=== PATIENT | male | born 1960 | race Caucasian/White ===

== ENCOUNTER 2018-03-21 09:26 | Inpatient (IN) | payer MEDICARE, OTHER ==
[2018-03-21] MEDS ORDERED: Morphine VIAL* 4 MG/ML VIAL (1 ml vial) IV PRN (13:23)
[2018-03-21] MEDS ORDERED: oxyCODONE TAB* 5 MG TAB PO PRN (13:55)
[2018-03-21] MEDS: ETOPOSIDE IVPB SCH (15:01)
[2018-03-21] MEDS: NS 0.9% IVPB SCH (15:01)
[2018-03-21] MEDS: VINCRISTINE IVPB SCH (15:01)
[2018-03-21] MEDS: DOXORUBICIN IVPB SCH (15:01)
[2018-03-21] MEDS: predniSONE TAB* 50 MG PO SCH (15:40)
[2018-03-21] MEDS: Heparin VIAL(*) 5000 UNITS/ML VIAL (FIVE THOUSAND) SUBCUT SCH ×2 (15:41→20:34)
[2018-03-21] MEDS: Lactulose* 15 ML UDC PO SCH ×2 (15:43→20:36)
[2018-03-21] MEDS ORDERED: Temazepam CAP* 15 MG PO PRN (15:47)
[2018-03-21] MEDS: Acyclovir* 400 MG TAB PO SCH (20:34)
[2018-03-21] MEDS: oxyCODONE TAB* 5 MG TAB PO PRN (21:10)
[2018-03-22] MEDS: Heparin VIAL(*) 5000 UNITS/ML VIAL (FIVE THOUSAND) SUBCUT SCH (05:15)
[2018-03-22 05:46] LABS: Hematocrit 31 % (42-52); Hemoglobin 11.1 g/dl (14.0-18.0); Mean Corpuscular HGB Conc 36 g/dl (31-36); Mean Corpuscular Hemoglobin 33 pg (27-31); Mean Corpuscular Volume 93 fL (80-94); Red Blood Count 3.36 10^6/ul (4.0-5.4); Red Cell Distribution Width 13 % (10.5-15)
[2018-03-22 06:02] LABS: EGFR Non-African American 52.6 (>60)
[2018-03-22 06:04] LABS: ABS Basophils 0 10^3/ul (0-0.2); ABS Eosinophils 0 10^3/ul (0-0.6); ABS Lymphocytes 0.1 10^3/ul (1.0-4.8); ABS Monocytes 0.1 10^3/ul (0-0.8); ABS Neutrophils 3.8 10^3/ul (1.5-7.7); ABS Nucleated RBC 0 10^3/ul; Eosinophil % 0 % (0-6); Lymphocyte % 2.2 % (25-47); Mean Platelet Volume 7.2 um3 (7.4-10.4); Nucleated Red Blood Cells % 0.1; Platelet Count 45 10^3/ul (150-450)
[2018-03-22] MEDS ORDERED: Calcium Carbonate CHEW TAB* 500 MG (TUMS) PO PRN (08:56)
--- NOTE | 2018-03-22 09:07 | PN ---
Progress Note - Progress Note Date of Service: 03/22/18 SOAP: Subjective: []C1D2 R-EPOCH Dal[place] poorly yesterday during and after Rituximab infusion with abd. discomfort, bloating, and pain. This AM a lot better. Has a better appetite than he expected. Less bloated. No BM yet but tolerated lactulose well. Received call from [facility] that neupogen was declined. Really wants to be able to exercise and has requested a stationary bike. Denies reflux/acid burning symptoms No mouth sores No neuropathy No GORDON, though noted slightly blurred vision this AM that has improved without intervention Slept OK Medications: Acyclovir (Zovirax Tab*) 400 mg PO BID [facility] Last Admin: 03/21/18 20:34 Dose: 400 mg Allopurinol (Zyloprim Tab*) 300 mg PO DAILY [facility] Calcium Carbonate (Tums*) 500 mg PO Q4H PRN PRN Reason: reflux Heparin Sodium (Porcine) (Heparin Flush Port (Ivad)) 5 ml FLUSH DAILY [facility] PRN Reason: Protocol Etoposide 92 mg/ Doxorubicin HCl 18 mg/ Vincristine Sulfate 0.73 mg/ Sodium Chloride 514.33 mls @ 21.43 mls/hr IVPB Q24H [facility] Stop: 03/25/18 14:29 Last Admin: 03/21/18 15:01 Dose: 21.43 mls/hr Cyclophosphamide 1,000 mg/Cyclophosphamide 373 mg/Sodium Chloride 568.65 mls @ 758.2 mls/hr IVPB ONCE ONE Stop: 03/25/18 15:44 Lactulose (Lactulose*) 15 ml PO QID [facility] Last Admin: 03/21/18 20:36 Dose: 15 ml Morphine Sulfate (Morphine Vial*) 4 mg IV Q4H PRN PRN Reason: PAIN Oxycodone HCl (Roxycodone Tab*) 10 mg PO Q6H PRN PRN Reason: PAIN Last Admin: 03/21/18 21:10 Dose: 10 mg Prednisone (Deltasone Tab*) 100 mg PO DAILY [facility] Stop: 03/25/18 09:01 Last Admin: 03/21/18 15:40 Dose: 100 mg Temazepam (Restoril Cap*) 15 mg PO BEDTIME PRN PRN Reason: INSOMNIA Trimethoprim/Sulfamethoxazole (Bactrim Ds 800/160 Tab*) 1 tab PO MoWeFr@0900 [facility] Objective: [] Vital Signs Temp Pulse Resp BP Pulse Ox 97.5 F 59 16 100/56 98 03/22/18 03:22 03/22/18 03:22 03/22/18 03:22 03/22/18 03:22 03/22/18 03:22 A&Ox3, EOMI, PARADA HRR, S1S2, no murmur noted LS clear bilat., resp even and non-labored +BS, abd. soft and slightly distended with mass still felt @ medial aspect, mildly tender though no deep palpation as pt. had just ate No peripheral edema noted Port RCW benign, chemo infusing without obvious complication Laboratory Results - last 24 hr 03/22/18 03/22/18 05:13 05:13 WBC 4.0 RBC 3.36 L Hgb 11.1 L Hct 31 L MCV 93 MCH 33 H MCHC 36 RDW 13 Plt Count 45 L MPV 7.2 L Neut % (Auto) 94.7 H Lymph % (Auto) 2.2 L [place] % (Auto) 3.0 Eos % (Auto) 0 Baso % (Auto) 0.1 Absolute Neuts (auto) 3.8 Absolute Lymphs (auto) 0.1 L Absolute Monos (auto) 0.1 Absolute Eos (auto) 0 Absolute Basos (auto) 0 Absolute Nucleated RBC 0 Nucleated RBC % 0.1 Large Platelets Present Sodium 139 Potassium 4.8 Chloride 109 Carbon Dioxide 24 Anion Gap 6 BUN 23 Creatinine 1.40 H Est GFR ( Amer) 67.7 Est GFR (Non-Af Amer) 52.6 BUN/Creatinine Ratio 16.4 Glucose 123 H Calcium 9.4 Total Bilirubin 0.30 AST 12 L ALT 7 Alkaline Phosphatase 61 Total Protein 5.6 L Albumin 3.5 Globulin 2.1 Albumin/Globulin Ratio 1.7 Assessment: []57 yo male with 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 He appears to already have some improvement in symptoms with less abd. bloating following Rituximab which is very reassuring. Plan: []1. Cont. chemotherapy, no change today 2. No DVT prophylaxis with meds d/t plt. <50K, pt. to exercise per his preference as well 3. Pain well controlled with PO meds, IV if break through occurs 4. Add PO compazine for nausea, zofran can be added tomorrow (d/t aloxi with D1) . If needed can give IV ativan for break through today, but will hold off on ordering as he is feeling very well now 5. Add Tums PRN in case reflux occurs with prednisone 6. Blurred vision likely secondary to Benadryl yesterday, might have dry eyes and will follow with tx. 7. Will contact [facility] re: Humberto prior auth
[2018-03-22] MEDS: Acyclovir* 400 MG TAB PO SCH ×2 (09:14→20:13)
[2018-03-22] MEDS: Lactulose* 15 ML UDC PO SCH ×4 (09:14→20:13)
[2018-03-22] MEDS: predniSONE TAB* 50 MG PO SCH (09:14)
[2018-03-22] MEDS: Allopurinol TAB* 300 MG PO SCH (09:15)
[2018-03-22] MEDS: Sulfamethox/Trimethoprim DS 800/160* TAB PO SCH (09:15)
[2018-03-22] MEDS: NS 0.9% IVPB SCH (14:26)
[2018-03-22] MEDS: ETOPOSIDE IVPB SCH (14:26)
[2018-03-22] MEDS: DOXORUBICIN IVPB SCH (14:26)
[2018-03-22] MEDS: VINCRISTINE IVPB SCH (14:26)
[2018-03-22] MEDS: oxyCODONE TAB* 5 MG TAB PO PRN (20:15)
[2018-03-23 06:11] LABS: ABS Basophils 0 10^3/ul (0-0.2); ABS Eosinophils 0 10^3/ul (0-0.6); ABS Lymphocytes 0.2 10^3/ul (1.0-4.8); ABS Monocytes 0.5 10^3/ul (0-0.8); ABS Neutrophils 5.1 10^3/ul (1.5-7.7); ABS Nucleated RBC 0 10^3/ul; Eosinophil % 0 % (0-6); Hematocrit 32 % (42-52); Hemoglobin 11.1 g/dl (14.0-18.0); Lymphocyte % 3.4 % (25-47); Mean Corpuscular HGB Conc 35 g/dl (31-36); Mean Corpuscular Hemoglobin 33 pg (27-31); Mean Corpuscular Volume 93 fL (80-94); Mean Platelet Volume 7.5 um3 (7.4-10.4); Nucleated Red Blood Cells % 0; Platelet Count 59 10^3/ul (150-450); Red Cell Distribution Width 12 % (10.5-15); White Blood Count 5.8 10^3/ul (3.5-10.8)
[2018-03-23 06:30] LABS: EGFR Non-African American 55.8 (>60)
[2018-03-23] MEDS: Allopurinol TAB* 300 MG PO SCH (08:58)
[2018-03-23] MEDS: Acyclovir* 400 MG TAB PO SCH ×2 (08:58→21:18)
[2018-03-23] MEDS: predniSONE TAB* 50 MG PO SCH (08:58)
[2018-03-23] MEDS: Lactulose* 15 ML UDC PO SCH ×4 (08:59→21:18)
[2018-03-23] MEDS: Polyethylene Glycol 3350* 17 GM PACKET PO SCH (12:56)
[2018-03-23] MEDS: Senna TAB PO PRN (12:56)
[2018-03-23] MEDS: NS 0.9% IVPB SCH (13:56)
[2018-03-23] MEDS: VINCRISTINE IVPB SCH (13:56)
[2018-03-23] MEDS: DOXORUBICIN IVPB SCH (13:56)
[2018-03-23] MEDS: ETOPOSIDE IVPB SCH (13:56)
[2018-03-23] MEDS: oxyCODONE TAB* 5 MG TAB PO PRN (21:17)
[2018-03-24 06:30] LABS: ABS Basophils 0 10^3/ul (0-0.2); ABS Eosinophils 0 10^3/ul (0-0.6); ABS Lymphocytes 0.3 10^3/ul (1.0-4.8); ABS Monocytes 0.2 10^3/ul (0-0.8); ABS Neutrophils 4.4 10^3/ul (1.5-7.7); ABS Nucleated RBC 0 10^3/ul; Eosinophil % 0.1 % (0-6); Hematocrit 33 % (42-52); Hemoglobin 11.3 g/dl (14.0-18.0); Lymphocyte % 6.6 % (25-47); Mean Corpuscular HGB Conc 35 g/dl (31-36); Mean Corpuscular Hemoglobin 32 pg (27-31); Mean Corpuscular Volume 93 fL (80-94); Mean Platelet Volume 6.5 um3 (7.4-10.4); Nucleated Red Blood Cells % 0; Platelet Count 65 10^3/ul (150-450); Red Blood Count 3.51 10^6/ul (4.0-5.4); Red Cell Distribution Width 13 % (10.5-15)
[2018-03-24 06:46] LABS: EGFR Non-African American 63.5 (>60)
[2018-03-24] MEDS: Senna TAB PO PRN (09:02)
[2018-03-24] MEDS: Polyethylene Glycol 3350* 17 GM PACKET PO SCH ×2 (09:03→21:21)
[2018-03-24] MEDS: Lactulose* 15 ML UDC PO SCH (09:03)
[2018-03-24] MEDS: Ondansetron ODT TAB* 4 MG SL PRN ×2 (09:32→17:49)
[2018-03-24] MEDS: predniSONE TAB* 50 MG PO SCH (09:58)
[2018-03-24] MEDS: Acyclovir* 400 MG TAB PO SCH ×2 (09:59→21:26)
[2018-03-24] MEDS: Sulfamethox/Trimethoprim DS 800/160* TAB PO SCH (11:07)
[2018-03-24] MEDS: Allopurinol TAB* 300 MG PO SCH (11:07)
[2018-03-24] MEDS: DOXORUBICIN IVPB SCH (12:51)
[2018-03-24] MEDS: NS 0.9% IVPB SCH (12:51)
[2018-03-24] MEDS: ETOPOSIDE IVPB SCH (12:51)
[2018-03-24] MEDS: VINCRISTINE IVPB SCH (12:51)
[2018-03-24] MEDS: Docusate CAP* 100 MG PO PRN (12:57)
[2018-03-24] MEDS: Prochlorperazine TAB* 10 MG PO PRN (21:26)
[2018-03-24] MEDS: oxyCODONE TAB* 5 MG TAB PO PRN (21:26)
[2018-03-24] MEDS: Senna TAB PO SCH (21:27)
[2018-03-25 06:51] LABS: ABS Basophils 0 10^3/ul (0-0.2); ABS Eosinophils 0 10^3/ul (0-0.6); ABS Lymphocytes 0.4 10^3/ul (1.0-4.8); ABS Monocytes 0.1 10^3/ul (0-0.8); ABS Nucleated RBC 0 10^3/ul; Eosinophil % 0.1 % (0-6); Hematocrit 36 % (42-52); Hemoglobin 12.6 g/dl (14.0-18.0); Lymphocyte % 8.2 % (25-47); Mean Corpuscular HGB Conc 35 g/dl (31-36); Mean Corpuscular Hemoglobin 32 pg (27-31); Mean Corpuscular Volume 91 fL (80-94); Nucleated Red Blood Cells % 0; Platelet Count 64 10^3/ul (150-450); Red Blood Count 3.91 10^6/ul (4.0-5.4); Red Cell Distribution Width 12 % (10.5-15); White Blood Count 4.4 10^3/ul (3.5-10.8)
[2018-03-25 07:05] LABS: EGFR Non-African American 70.2 (>60)
[2018-03-25] MEDS: predniSONE TAB* 50 MG PO SCH (08:03)
[2018-03-25] MEDS: Allopurinol TAB* 300 MG PO SCH (08:04)
[2018-03-25] MEDS: Acyclovir* 400 MG TAB PO SCH (08:04)
[2018-03-25] MEDS: Docusate CAP* 100 MG PO PRN (08:04)
[2018-03-25] MEDS: Senna TAB PO SCH (08:05)
[2018-03-25] MEDS: Prochlorperazine TAB* 10 MG PO PRN (08:05)
[2018-03-25] MEDS: Polyethylene Glycol 3350* 17 GM PACKET PO SCH (08:07)
[2018-03-25 12:00] VITALS: BP 116/71
[2018-03-25] MEDS: Ondansetron ODT TAB* 4 MG SL PRN (12:30)
[2018-03-25] MEDS ORDERED: NS 0.9% IVPB ONE (15:00)
[2018-03-25] MEDS ORDERED: CYCLOPHOSPHAMIDE IVPB ONE (15:00)
== END 2018-03-25 14:30 | disposition home or self-care (01) | DRG 847 ==
LOC: MED 11:48
PROVIDERS: ADMIT Internal Medicine Hematology & Oncology; ATTEND Internal Medicine Hematology & Oncology
DX: Z51.11 Encounter for antineoplastic chemotherapy (principal); C83.33 Diffuse large B-cell lymphoma, intra-abdominal lymph nodes; K59.00 Constipation, unspecified; D69.59 Other secondary thrombocytopenia; R11.2 Nausea with vomiting, unspecified; H53.8 Other visual disturbances; Z92.21 Personal history of antineoplastic chemotherapy; Z91.041 Radiographic dye allergy status; Z85.71 Personal history of Hodgkin lymphoma; Z90.49 Acquired absence of other specified parts of digestive tract
CPT/HCPCS: 36415; 80053; 85025; 99223; 99232; 99238; A9270-GY; J1642; J1644; J7512; J9000; J9070; J9181; J9370; Q0164

== ENCOUNTER 2019-05-06 19:43 | Emergency (ER) | payer MEDICARE, OTHER ==
[2019-05-06 19:51] VITALS: BP 136/74
--- NOTE | 2019-05-06 20:46 | UC ---
General HPI - HPI Summary HPI Summary: 59-year-old male comes in with a chief complaint of left facial weakness and numbness. About 2 weeks ago patient noticed some tingling in the left neck and left shoulder. The week and half ago he noticed weakness and numbness of the left side of the face and also decreased taste on the left side of his tongue. Also sometime in the last week or week and a half he's noticed some numbness on the left side of his abdomen. Denies any weakness or numbness of the arms or legs. The eyelid on the left side is difficult to close. Otherwise no loss of vision or difficulty with speech. Patient has a history of Hodgkin's and non- Hodgkin's lymphoma. - History of Current Complaint Chief Complaint: UCGeneralIllness Stated Complaint: L SIDE FACIAL NUMBNESS Time Seen by Provider: 05/06/19 19:45 Pain Intensity: 0 - Allergy/Home Medications Allergies/Adverse Reactions: Allergies Allergy/AdvReac Type Severity Reaction Status Date / Time No Known Allergies Allergy Verified 05/06/19 19:51 Home Medications: Home Medications NK [No Home Medications Reported] 05/06/19 [History Confirmed 05/06/19] PMH/Surg Hx/FS Hx/Imm Hx Previously Healthy: Yes Other Cancer History: LYMPHOMA - Surgical History Surgical History: Yes Surgery Procedure, Year, and Place: PORT PLACEMENT - Family History Known Family History: Positive: Non-Contributory - Social History Alcohol Use: None Substance Use Type: None Smoking Status (MU): Never Smoked Tobacco Have You Smoked in the Last Year: No - Immunization History Most Recent Influenza Vaccination: 2016 Most Recent Pneumonia Vaccination: 2017 Review of Systems All Other Systems Reviewed And Are Negative: Yes Constitutional: Positive: Negative Skin: Positive: Other - SEE HPI Eyes: Positive: Other - SEE HPI ENT: Positive: Negative Respiratory: Positive: Negative Cardiovascular: Positive: Negative Gastrointestinal: Positive: Negative Motor: Positive: Other - SEE HPI Neurovascular: Positive: Other - SEE HPI Musculoskeletal: Positive: Other: - SEE HPI Neurological: Positive: Other - SEE HPI Psychological: Positive: Negative Is Patient Immunocompromised?: No Physical Exam Triage Information Reviewed: Yes Appearance: Well-Appearing, No Pain Distress, Well-Nourished Vital Signs: Initial Vital Signs Temp 98.1 F 05/06/19 19:44 Pulse 84 05/06/19 19:44 Resp 16 05/06/19 19:44 BP 136/74 05/06/19 19:44 Pulse Ox 100 05/06/19 19:44 Vital Signs Reviewed: Yes Eye Exam: Normal Eyes: Positive: Conjunctiva Inflamed - LEFT, Other: - PERRLA/EOMI ENT: Positive: Pharynx normal, TMs normal Neck: Positive: Supple Respiratory: Positive: Lungs clear, Normal breath sounds, No respiratory distress Cardiovascular: Positive: RRR Musculoskeletal: Positive: No Edema Neurological: Positive: Alert, Other: - Patient has left facial droop. The weakness and numbness includes the left forehead and left face. His left eyelid drifts open and is a hard time closing it. No rash. Is also an area of decreased sensation on the left side of the abdomen. No rash there either. Arms and legs have full strength. No visual field deficits no difficulty with speech. Psychological: Positive: Age Appropriate Behavior Skin: Negative: Rashes Course/Dx - Course Course Of Treatment: I discussed the case with the neurologist on-call Dr. Goss. I also discussed the case with the patient's oncologist Dr. Blanca. They both recommended inpatient admission tonight to go through the emergency department now. I discussed all this with the patient and he let me know he was not planning to go the emergency room tonight but he will be calling Dr. Blanca's office tomorrow. - Diagnoses Provider Diagnosis: Weakness on left side of face, Paresthesia Discharge - Sign-Out/Discharge Documenting (check all that apply): Patient Departure All imaging exams completed and their final reports reviewed: No Studies - Discharge Plan Condition: Stable Disposition: HOME-RECOMMEND TO ED Patient Education Materials: Haley Palsy (ED), Paresthesia (ED) Referrals: Jack Cisneros MD [Primary Care Provider] - Isis Blanca MD [Medical Doctor] - Additional Instructions: GO DIRECTLY TO THE EMERGENCY DEPARTMENT FOR FURTHER EVALUATION. - Billing Disposition and Condition Condition: STABLE Disposition: Home-Recommend to ED
== END 2019-05-06 20:54 | disposition home health service (06) ==
LOC: UCEAST 19:43
DX: R29.810 Facial weakness (principal); R20.2 Paresthesia of skin; Z85.71 Personal history of Hodgkin lymphoma; Z85.72 Personal history of non-Hodgkin lymphomas
CPT/HCPCS: 99211; G0463

== ENCOUNTER 2019-06-06 11:28 | Emergency (ER) | payer MEDICARE, OTHER ==
[2019-06-06 11:58] VITALS: BP 109/69
--- NOTE | 2019-06-06 13:28 | UC ---
Skin Complaint HPI - HPI Summary HPI Summary: NOTICED THE SMALL PURPLE AREA IN THE SECOND INTERDIGITAL WEB SPACE OF HIS LEFT HAND YESTERDAY MORNING. IT HAS GOTTEN BIGGER IN SIZE AND NOW HAS SURROUNDING ERYTHEMA EXTENDING PROXIMALLY UP TO HIS WRIST. THE AREA IS PAINFUL BUT NOT ITCHY. NO FEVER. [place] AND [place]MITS IT'S LIKELY HE WAS BITTEN BY SOMETHING. - History of Current Complaint Chief Complaint: UCSkin Time Seen by Provider: 06/06/19 13:13 Stated Complaint: RASH Hx Obtained From: Patient Onset/Duration: Gradual Onset, Lasting Hours, Still Present Timing: Constant Onset Severity: Mild Current Severity: Moderate Pain Intensity: 4 Pain Scale Used: 0-10 Numeric Location: Hand (Left) Character: Swelling, Pain, Redness Aggravating Factor(s): Touch - MOVEMENT Alleviating Factor(s): Nothing Associated Signs & Symptoms: Positive: Rash, Tenderness, Red Streaks. Negative : Nausea, Fever - Allergy/Home Medications Allergies/Adverse Reactions: Allergies Allergy/AdvReac Type Severity Reaction Status Date / Time No Known Allergies Allergy Verified 06/06/19 11:58 PMH/Surg Hx/FS Hx/Imm Hx Other Cancer History: HODGKINS AND NON HODGKINS LYMPHOMA - Surgical History Surgical History: Yes Surgery Procedure, Year, and Place: PORT PLACEMENT - Family History Known Family History: Positive: Non-Contributory - Social History Alcohol Use: None Substance Use Type: None Smoking Status (MU): Never Smoked Tobacco Have You Smoked in the Last Year: No - Immunization History Most Recent Influenza Vaccination: 2017 Most Recent Pneumonia Vaccination: 2017 Review of Systems All Other Systems Reviewed And Are Negative: Yes Constitutional: Positive: Negative Skin: Positive: Other - ERYTHEMA Respiratory: Positive: Negative Cardiovascular: Positive: Negative Gastrointestinal: Positive: Negative Musculoskeletal: Positive: Arthralgia, Edema Physical Exam Triage Information Reviewed: Yes Appearance: Well-Appearing, No Pain Distress, Well-Nourished Vital Signs: Initial Vital Signs Temp 99.2 F 06/06/19 11:55 Pulse 97 06/06/19 11:55 Resp 18 06/06/19 11:55 BP 109/69 06/06/19 11:55 Pulse Ox 99 06/06/19 11:55 Vital Signs Reviewed: Yes Eyes: Positive: Conjunctiva Clear ENT: Positive: Hearing grossly normal Neck: Positive: Supple Respiratory: Positive: No respiratory distress, No accessory muscle use Cardiovascular: Positive: Pulses Normal Abdomen Description: Positive: Soft Musculoskeletal: Positive: ROM Intact, Edema @ - LEFT 2ND AND 3RD FINGERS Neurological: Positive: Alert Psychological: Positive: Age Appropriate Behavior Skin: Positive: Other - ~2CM AREA OF DARK PURPLE DISCOLORATION 2ND INTERDIGITAL WEBSPACE LEFT HAND WITH SURROUNDING ERYTHEMA AND EDEMA EXTENDING PROXIMALLY TO WRIST, Course/Dx - Course Course Of Treatment: PATIENT LIKELY SUSTAINED AN INSECT BITE IN THE SECOND INTERDIGITAL WEBSPACE OF HIS LEFT HAND AND THEN DEVELOPED A SUBSEQUENT CELLULITIS. WILL COVER WITH KEFLEX TWICE DAILY FOR 10 DAYS. PATIENT WILL FOLLOW-UP IF HE IS NOT IMPROVING EXPECTED WITH THIS MEDICATION. - Diagnoses Provider Diagnosis: Cellulitis of left hand Discharge - Sign-Out/Discharge Documenting (check all that apply): Patient Departure All imaging exams completed and their final reports reviewed: No Studies - Discharge Plan Condition: Stable Disposition: HOME Prescriptions: Cephalexin CAP* [Keflex 500 CAP*] 1,000 mg PO BID #[id number] cap Patient Education Materials: Cellulitis (ED) Referrals: Jack Cisneros MD [Primary Care Provider] - If Needed Additional Instructions: YOU HAVE A SKIN INFECTION ON YOUR LEFT HAND LIKELY STEMMING FROM AN INSECT BITE OF SOME NATURE. TAKE THE ANTIBIOTICS TWICE DAILY FOR THE FULL 10 DAYS. IF YOU DO NOT NOTICE IMPROVEMENT AFTER 48 HOURS ON ANTIBIOTICS SEEK REEVALUATION. - Billing Disposition and Condition Condition: STABLE Disposition: Home
== END 2019-06-06 13:25 | disposition home or self-care (01) ==
LOC: UCEAST 11:28
DX: L03.114 Cellulitis of left upper limb (principal); Z85.72 Personal history of non-Hodgkin lymphomas; Z85.71 Personal history of Hodgkin lymphoma
CPT/HCPCS: 99212; G0463

== ENCOUNTER 2019-06-14 14:28 | Inpatient (IN) | payer MEDICARE, OTHER ==
[2019-06-14] MEDS ORDERED: diPHENhydraMINE PO* 50 MG PO PRN (16:07)
--- OUTSIDE RECORDS SUMMARY | 2019-06-14 16:43 | XMS REPORT | Continuity of Care Document ---
:1960 External Reference #:[id number] Author Name Rosario Gamboa Care Team Providers Name Role Phone Jcak Cisneros MD Primary Care Physician Unavailable Payers Date Identification Numbers Payment Provider Subscriber Policy Number: [id number] Medicare Eduardo Gomez PayID: [id number] [address] [place] [address] Policy Number: [id number] [employer] Eduardo Gomez PayID: [id number] [address] [place] [address] Expires: 2017 Policy Number: [facility] Eduardo Gomez [id number] PayID: [id number] [address] [place] [address] Family History Date Family Member(s) Observation Comments General adopted - unknown family history Social History Type Date Description Comments Sex Unknown ETOH Use Denies alcohol use Tobacco Use Start: Unknown Patient has never smoked Recreational Drug Use Denies Drug Use Smoking Status Reviewed: 06/11/19 Patient has never smoked Exercise Type/Frequency Does not exercise Medications Active Medications SIG Qnty Indications Ordering Provider Date Cephalexin Unknown 500mg Capsules Vital Signs Date Vital Result Comment 06/11/2019 11:25am Height 72 inches 6'0" Weight 141.00 lb Heart Rate 88 /min BP Systolic 109 mmHg BP Diastolic 71 mmHg Body Temperature 97.2 F O2 % BldC Oximetry 100 % BMI (Body Mass Index) 19.1 kg/m2 Results Test Date Facility Test Result H/L Range Note Lyme Disease AB 06/05/2019 [facility] IgG Immunoblot Negative Negative Immunoblot WB [address] [place] [address] [phone] IgG detected against p39 kDa IgM Immunoblot Negative Negative IgM detected against None kDa Lyme Disease Interpretation See Comment 1 Comp Metabolic Panel 06/05/2019 [facility] Sodium 136 mmol/L N 135-[address] [place] [address] [phone] Potassium 4.1 mmol/L N 3.5-5.0 Chloride 111 mmol/L N 101-111 Co2 Carbon Dioxide 19 mmol/L Low 22-32 Anion Gap 6 mmol/L N 2-11 Glucose 108 mg/dL High 70-100 Blood Urea Nitrogen 29 mg/dL High 6-24 Creatinine 1.36 mg/dL High 0.67-1.17 BUN/Creatinine Ratio 21.3 High 8-20 Calcium 10.2 mg/dL N 8.6-10.3 Total Protein 6.2 g/dL Low 6.4-8.9 Albumin 4.3 g/dL N 3.2-5.2 Globulin 1.9 g/dL Low 2-4 Albumin/Globulin Ratio 2.3 N 1-3 Total Bilirubin 0.80 mg/dL N 0.2-1.0 Alkaline Phosphatase 59 U/L N 34-104 Alt 14 U/L N 7-52 Ast 12 U/L Low 13-39 Egfr Non- 54.0 >60 Egfr 65.4 >60 2 Laboratory test 06/05/2019 [facility] Erythrocyte Sed 2 mm/Hr N 0-[address] [place] [address] [phone] Lyme Screen W/ Reflex To WB Negative Negative CBC Auto Diff 06/05/2019 [facility] White Blood 3.9 10^3/uL N 3.5-10.[address] [place] [address] [phone] Red Blood Count 4.05 10^6/uL Low 4.18-5.48 Hemoglobin 13.4 g/dL Low 14.0-18.0 Hematocrit 38 % Low 42-52 Mean Corpuscular Volume 94 fL N 80-94 Mean Corpuscular Hemoglobin 33 pg High 27-31 Mean Corpuscular HGB Conc 35 g/dL N 31-36 Red Cell Distribution Width 13 % N 10-15 Platelet Count 78 10^3/uL Low 150-450 3 Mean Platelet Volume 6.9 fL Low 7.4-10.4 Abs Neutrophils 3.1 10^3/uL N 1.5-7.7 Abs Lymphocytes 0.3 10^3/uL Low 1.0-4.8 Abs Monocytes 0.4 10^3/uL N 0-0.8 Abs Eosinophils 0.0 10^3/uL N 0-0.6 Abs Basophils 0.0 10^3/uL N 0-0.2 Abs Nucleated RBC 0.0 10^3/uL Granulocyte % 79.1 % Lymphocyte % 8.3 % Monocyte % 11.4 % Eosinophil % 0.9 % Basophil % 0.3 % Nucleated Red Blood Cells % 0.7 Laboratory test 06/04/2019 [facility] Point of Care 72 mg/dL N 70-100 [address] [address] [phone] Lyme Disease AB 05/22/2019 [facility] IgG Immunoblot Negative Negative Immunoblot WB [address] [place] [address] [phone] IgG detected against p39 kDa IgM Immunoblot Negative Negative IgM detected against None kDa Lyme Disease Interpretation See Comment 5 Comp Metabolic Panel 05/22/2019 [facility] Sodium 137 mmol/L N 135-[address] [place] [address] [phone] Potassium 4.2 mmol/L N 3.5-5.0 Chloride 107 mmol/L N 101-111 Co2 Carbon Dioxide 24 mmol/L N 22-32 Anion Gap 6 mmol/L N 2-11 Glucose 116 mg/dL High 70-100 Blood Urea Nitrogen 19 mg/dL N 6-24 Creatinine 1.15 mg/dL N 0.67-1.17 BUN/Creatinine Ratio 16.5 N 8-20 Calcium 10.1 mg/dL N 8.6-10.3 Total Protein 6.2 g/dL Low 6.4-8.9 Albumin 4.3 g/dL N 3.2-5.2 Globulin 1.9 g/dL Low 2-4 Albumin/Globulin Ratio 2.3 N 1-3 Total Bilirubin 0.80 mg/dL N 0.2-1.0 Alkaline Phosphatase 63 U/L N 34-104 Alt 12 U/L N 7-52 Ast 14 U/L N 13-39 Egfr Non- 65.5 >60 Egfr 79.3 >60 6 Laboratory test 05/22/2019 [facility] Erythrocyte Sed 3 mm/Hr N 0-[address] [place] [address] [phone] Lyme Screen W/ Reflex To WB Negative Negative CBC Auto 05/22/2019 [facility] White Blood 3.1 10^3/uL Low 3.5 -10.[address] [place] [address] [phone] Red Blood Count 4.10 10^6/uL Low 4.18-5.48 Hemoglobin 13.8 g/dL Low 14.0-18.0 Hematocrit 38 % Low 42-52 Mean Corpuscular Volume 93 fL N 80-94 Mean Corpuscular Hemoglobin 34 pg High 27-31 Mean Corpuscular HGB Conc 36 g/dL N 31-36 Red Cell Distribution Width 13 % N 10-15 Platelet Count 71 10^3/uL Low 150-450 7 Mean Platelet Volume 6.9 fL Low 7.4-10.4 Abs Neutrophils 2.3 10^3/uL N 1.5-7.7 Abs Lymphocytes 0.3 10^3/uL Low 1.0-4.8 Abs Monocytes 0.4 10^3/uL N 0-0.8 Abs Eosinophils 0.1 10^3/uL N 0-0.6 Abs Basophils 0.0 10^3/uL N 0-0.2 Abs Nucleated RBC 0.0 10^3/uL Granulocyte % 75.4 % Lymphocyte % 10.4 % Monocyte % 12.0 % Eosinophil % 1.8 % Basophil % 0.4 % Nucleated Red Blood Cells % 0.1 Lyme Disease AB 05/08/2019 [facility] IgG Immunoblot Negative Negative Immunoblot WB [address] [place] [address] [phone] IgG detected against p39 kDa IgM Immunoblot Negative Negative IgM detected against None kDa Lyme Disease Interpretation See Comment 8 Comp Metabolic Panel 05/08/2019 [facility] Sodium 136 mmol/L N 135-145 [address] [place] [address] [phone] Potassium 4.3 mmol/L N 3.5-5.0 Chloride 106 mmol/L N 101-111 Co2 Carbon Dioxide 25 mmol/L N 22-32 Anion Gap 5 mmol/L N 2-11 Glucose 100 mg/dL N 70-100 Blood Urea Nitrogen 20 mg/dL N 6-24 Creatinine 1.33 mg/dL High 0.67-1.17 BUN/Creatinine Ratio 15.0 N 8-20 Calcium 10.3 mg/dL N 8.6-10.3 Total Protein 6.3 g/dL Low 6.4-8.9 Albumin 4.4 g/dL N 3.2-5.2 Globulin 1.9 g/dL Low 2-4 Albumin/Globulin Ratio 2.3 N 1-3 Total Bilirubin 0.70 mg/dL N 0.2-1.0 Alkaline Phosphatase 65 U/L N 34-104 Alt 13 U/L N 7-52 Ast 15 U/L N 13-39 Egfr Non- 55.4 >60 Egfr 67.1 >60 9 Laboratory test 05/08/2019 [facility] Erythrocyte Sed 2 mm/Hr N 0-[address] [place] [address] [phone] Lyme Screen W/ Reflex To WB Negative Negative CBC Auto Diff 05/08/2019 [facility] White Blood 3.9 10^3/uL N 3.5-10.[address] [place] [address] [phone] Red Blood Count 4.31 10^6/uL N 4.18-5.48 Hemoglobin 14.2 g/dL N 14.0-18.0 Hematocrit 40 % Low 42-52 Mean Corpuscular Volume 93 fL N 80-94 Mean Corpuscular Hemoglobin 33 pg High 27-31 Mean Corpuscular HGB Conc 35 g/dL N 31-36 Red Cell Distribution Width 12 % N 10-15 Platelet Count 79 10^3/uL Low 150-450 10 Mean Platelet Volume 7.0 fL Low 7.4-10.4 Abs Neutrophils 3.0 10^3/uL N 1.5-7.7 Abs Lymphocytes 0.3 10^3/uL Low 1.0-4.8 Abs Monocytes 0.4 10^3/uL N 0-0.8 Abs Eosinophils 0.1 10^3/uL N 0-0.6 Abs Basophils 0.0 10^3/uL N 0-0.2 Abs Nucleated RBC 0.0 10^3/uL Granulocyte % 78.3 % Lymphocyte % 8.0 % Monocyte % 11.4 % Eosinophil % 1.7 % Basophil % 0.6 % Nucleated Red Blood Cells % 0.1 Laboratory test 03/07/2019 [facility] Erythrocyte Sed 3 mm/Hr N 0-[address] [place] [address] [phone] Comp Metabolic 03/07/2019 [facility] Sodium 139 mmol/L N 135- [address] [place] [address] [phone] Potassium 4.5 mmol/L N 3.5-5.0 Chloride 109 mmol/L N 101-111 Co2 Carbon Dioxide 26 mmol/L N 22-32 Anion Gap 4 mmol/L N 2-11 Glucose 92 mg/dL N 70-100 Blood Urea Nitrogen 20 mg/dL N 6-24 Creatinine 1.25 mg/dL High 0.67-1.17 BUN/Creatinine Ratio 16.0 N 8-20 Calcium 9.7 mg/dL N 8.6-10.3 Total Protein 6.1 g/dL Low 6.4-8.9 Albumin 4.2 g/dL N 3.2-5.2 Globulin 1.9 g/dL Low 2-4 Albumin/Globulin Ratio 2.2 N 1-3 Total Bilirubin 0.60 mg/dL N 0.2-1.0 Alkaline Phosphatase 64 U/L N 34-104 Alt 13 U/L N 7-52 Ast 14 U/L N 13-39 Egfr Non- 59.7 >60 Egfr 72.3 >60 11 Laboratory test 03/07/2019 [facility] LDH 108 U/L Low 140-[address] [place] [address] [phone] CBC Auto Diff 03/07/2019 [facility] White Blood 2.8 Low 3.5- 10.[address] Count 10^3/[place] [address] [phone] Red Blood Count 4.02 10^6/uL Low 4.18-5.48 Hemoglobin 13.3 g/dL Low 14.0-18.0 Hematocrit 38 % N 36-46 Mean Corpuscular Volume 95 fL High 80-94 Mean Corpuscular Hemoglobin 33 pg High 27-31 Mean Corpuscular HGB Conc 35 g/dL N 31-36 Red Cell Distribution Width 13 % N 10.5-15 Platelet Count 63 10^3/uL Low 150-450 12 Mean Platelet Volume 6.9 fL Low 7.4-10.4 Abs Neutrophils 1.9 10^3/uL N 1.5-7.7 Abs Lymphocytes 0.3 10^3/uL Low 1.0-4.8 Abs Monocytes 0.4 10^3/uL N 0-0.8 Abs Eosinophils 0.1 10^3/uL N 0-0.6 Abs Basophils 0 10^3/uL N 0-0.2 Abs Nucleated RBC 0 10^3/uL Granulocyte % 68.4 % Lymphocyte % 12.1 % Monocyte % 16.0 % Eosinophil % 3.0 % Basophil % 0.5 % Nucleated Red Blood Cells % 0 Laboratory test 01/17/2019 [facility] Erythrocyte Sed 9 mm/Hr N 0-20 [address] [place] [address] [phone] Comp Metabolic 01/17/2019 [facility] Sodium 139 mmol/L N 135- [address] [place] [address] [phone] Potassium 4.0 mmol/L N 3.5-5.0 Chloride 106 mmol/L N 101-111 Co2 Carbon Dioxide 29 mmol/L N 22-32 Anion Gap 4 mmol/L N 2-11 Glucose 104 mg/dL High 70-100 Blood Urea Nitrogen 18 mg/dL N 6-24 Creatinine 1.16 mg/dL N 0.67-1.17 BUN/Creatinine Ratio 15.5 N 8-20 Calcium 10.3 mg/dL N 8.6-10.3 Total Protein 6.4 g/dL N 6.4-8.9 Albumin 4.4 g/dL N 3.2-5.2 Globulin 2.0 g/dL N 2-4 Albumin/Globulin Ratio 2.2 N 1-3 Total Bilirubin 0.60 mg/dL N 0.2-1.0 Alkaline Phosphatase 72 U/L N 34-104 Alt 15 U/L N 7-52 Ast 16 U/L N 13-39 Egfr Non- 65.1 >60 Egfr 78.8 >60 14 Laboratory test 01/17/2019 [facility] LDH 120 U/L Low 140-[address] [place] [address] [phone] CBC Auto Diff 01/17/2019 [facility] White Blood 3.2 Low 3.5- 10.[address] Count 10^3/[place] [address] [phone] Red Blood Count 3.98 10^6/uL Low 4.00-5.40 Hemoglobin 13.0 g/dL Low 14.0-18.0 Hematocrit 37 % Low 42-52 Mean Corpuscular Volume 94 fL N 80-94 Mean Corpuscular Hemoglobin 33 pg High 27-31 Mean Corpuscular HGB Conc 35 g/dL N 31-36 Red Cell Distribution Width 14 % N 10.5-15 Platelet Count 66 10^3/uL Low 150-450 15 Mean Platelet Volume 7.2 fL Low 7.4-10.4 Abs Neutrophils 2.4 10^3/uL N 1.5-7.7 Abs Lymphocytes 0.3 10^3/uL Low 1.0-4.8 Abs Monocytes 0.4 10^3/uL N 0-0.8 Abs Eosinophils 0.1 10^3/uL N 0-0.6 Abs Basophils 0 10^3/uL N 0-0.2 Abs Nucleated RBC 0 10^3/uL Granulocyte % 75.4 % Lymphocyte % 8.3 % Monocyte % 12.2 % Eosinophil % 3.7 % Basophil % 0.4 % Nucleated Red Blood Cells % 0 CBC Auto Diff 11/29/2018 [facility] White Blood 4.3 10^3/uL N 3.5-10.[address] [place] [address] [phone] Red Blood Count 4.10 10^6/uL N 4.00-5.40 Hemoglobin 13.2 g/dL Low 14.0-18.0 Hematocrit 38 % Low 42-52 Mean Corpuscular Volume 93 fL N 80-94 Mean Corpuscular Hemoglobin 32 pg High 27-31 Mean Corpuscular HGB Conc 35 g/dL N 31-36 Red Cell Distribution Width 13 % N 10.5-15 Platelet Count 71 10^3/uL Low 150-450 16 Mean Platelet Volume 7.2 fL Low 7.4-10.4 Abs Neutrophils 3.4 10^3/uL N 1.5-7.7 Abs Lymphocytes 0.3 10^3/uL Low 1.0-4.8 Abs Monocytes 0.3 10^3/uL N 0-0.8 Abs Eosinophils 0.1 10^3/uL N 0-0.6 Abs Basophils 0 10^3/uL N 0-0.2 Abs Nucleated RBC 0 10^3/uL Granulocyte % 81.1 % Lymphocyte % 7.6 % Monocyte % 8.1 % Eosinophil % 2.8 % Basophil % 0.4 % Nucleated Red Blood Cells % 0 Comp Metabolic Panel 11/29/2018 [facility] Sodium 137 mmol/L N 135-[address] [place] [address] [phone] Potassium 4.0 mmol/L N 3.5-5.0 Chloride 106 mmol/L N 101-111 Co2 Carbon Dioxide 26 mmol/L N 22-32 Anion Gap 5 mmol/L N 2-11 Glucose 132 mg/dL High 70-100 Blood Urea Nitrogen 21 mg/dL N 6-24 Creatinine 1.15 mg/dL N 0.67-1.17 BUN/Creatinine Ratio 18.3 N 8-20 Calcium 9.3 mg/dL N 8.6-10.3 Total Protein 6.1 g/dL Low 6.4-8.9 Albumin 4.0 g/dL N 3.2-5.2 Globulin 2.1 g/dL N 2-4 Albumin/Globulin Ratio 1.9 N 1-3 Total Bilirubin 0.40 mg/dL N 0.2-1.0 Alkaline Phosphatase 74 U/L N 34-104 Alt 14 U/L N 7-52 Ast 15 U/L N 13-39 Egfr Non- 65.8 >60 Egfr 79.6 >60 17 Laboratory test 11/29/2018 [facility] LDH 112 U/L Low 140-[address] [place] [address] [phone] Laboratory test 11/29/2018 [facility] Erythrocyte Sed 10 mm/Hr N 0-[address] [place] [address] [phone] Laboratory test 10/18/2018 [facility] Erythrocyte Sed 12 mm/Hr N 0-[address] [place] [address] [phone] Comp Metabolic 10/18/2018 [facility] Sodium 140 N 135-[address] mmol/[place] [address] [phone] Potassium 4.1 mmol/L N 3.5-5.0 Chloride 107 mmol/L N 101-111 Co2 Carbon Dioxide 28 mmol/L N 22-32 Anion Gap 5 mmol/L N 2-11 Glucose 124 mg/dL High 70-100 Blood Urea Nitrogen 25 mg/dL High 6-24 Creatinine 1.31 mg/dL High 0.67-1.17 BUN/Creatinine Ratio 19.1 N 8-20 Calcium 10.2 mg/dL N 8.6-10.3 Total Protein 6.0 g/dL Low 6.4-8.9 Albumin 4.2 g/dL N 3.2-5.2 Globulin 1.8 g/dL Low 2-4 Albumin/Globulin Ratio 2.3 N 1-3 Total Bilirubin 0.40 mg/dL N 0.2-1.0 Alkaline Phosphatase 72 U/L N 34-104 Alt 15 U/L N 7-52 Ast 15 U/L N 13-39 Egfr Non- 56.6 >60 Egfr 68.5 >60 18 Laboratory test 10/18/2018 [facility] LDH 113 U/L Low 140-[address] [place] [address] [phone] CBC Auto Diff 10/18/2018 [facility] White Blood 3.7 N 3.5- 10.[address] Count 10^3/[place] [address] [phone] Red Blood Count 3.90 10^6/uL Low 4.00-5.40 Hemoglobin 12.7 g/dL Low 14.0-18.0 Hematocrit 37 % Low 42-52 Mean Corpuscular Volume 94 fL N 80-94 Mean Corpuscular Hemoglobin 33 pg High 27-31 Mean Corpuscular HGB Conc 35 g/dL N 31-36 Red Cell Distribution Width 12 % N 10.5-15 Platelet Count 67 10^3/uL Low 150-450 19 Mean Platelet Volume 7.4 fL N 7.4-10.4 Abs Neutrophils 2.7 10^3/uL N 1.5-7.7 Abs Lymphocytes 0.4 10^3/uL Low 1.0-4.8 Abs Monocytes 0.4 10^3/uL N 0-0.8 Abs Eosinophils 0.2 10^3/uL N 0-0.6 Abs Basophils 0 10^3/uL N 0-0.2 Abs Nucleated RBC 0 10^3/uL Granulocyte % 72.9 % Lymphocyte % 10.0 % Monocyte % 10.8 % Eosinophil % 5.6 % Basophil % 0.7 % Nucleated Red Blood Cells % 0 Comp Metabolic Panel 09/08/2018 [facility] Sodium 138 mmol/L N 135-[address] [place] [address] [phone] Potassium 4.4 mmol/L N 3.5-5.0 Chloride 109 mmol/L N 101-111 Co2 Carbon Dioxide 27 mmol/L N 22-32 Anion Gap 2 mmol/L N 2-11 Glucose 112 mg/dL High 70-100 Blood Urea Nitrogen 21 mg/dL N 6-24 Creatinine 1.24 mg/dL High 0.67-1.17 BUN/Creatinine Ratio 16.9 N 8-20 Calcium 9.8 mg/dL N 8.6-10.3 Total Protein 5.8 g/dL Low 6.4-8.9 Albumin 4.1 g/dL N 3.2-5.2 Globulin 1.7 g/dL Low 2-4 Albumin/Globulin Ratio 2.4 N 1-3 Total Bilirubin 0.50 mg/dL N 0.2-1.0 Alkaline Phosphatase 77 U/L N 34-104 Alt 18 U/L N 7-52 Ast 16 U/L N 13-39 Egfr Non- 60.3 >60 Egfr 73.0 >60 20 Laboratory test finding 09/08/2018 [facility] LDH 144 U/L N 140-[address] [place] [address] [phone] Erythrocyte Sed Rate 14 mm/Hr N 0-20 CBC Auto 09/08/2018 [facility] White Blood 2.7 10^3/uL Low 3.5 -10.[address] [place] [address] [phone] Red Blood Count 3.41 10^6/uL Low 4.00-5.40 Hemoglobin 11.6 g/dL Low 14.0-18.0 Hematocrit 34 % Low 42-52 Mean Corpuscular Volume 99 fL High 80-94 Mean Corpuscular Hemoglobin 34 pg High 27-31 Mean Corpuscular HGB Conc 34 g/dL N 31-36 Red Cell Distribution Width 13 % N 10.5-15 Platelet Count 68 10^3/uL Low 150-450 Mean Platelet Volume 7.5 um3 N 7.4-10.4 Abs Neutrophils 1.7 10^3/uL N 1.5-7.7 Abs Lymphocytes 0.5 10^3/uL Low 1.0-4.8 Abs Monocytes 0.4 10^3/uL N 0-0.8 Abs Eosinophils 0.2 10^3/uL N 0-0.6 Abs Basophils 0 10^3/uL N 0-0.2 Abs Nucleated RBC 0 10^3/uL Granulocyte % 61.0 % N 38-83 Lymphocyte % 18.1 % Low 25-47 Monocyte % 13.7 % High 0-7 Eosinophil % 6.4 % High 0-6 Basophil % 0.8 % N 0-2 Nucleated Red Blood Cells % 0.3 Laboratory test 07/17/2018 [facility] Point of Care 98 mg/dL N 70-100 [address] [place] [address] [phone] CBC Auto Diff 07/03/2018 [facility] White Blood 4.2 10^3/uL N 3.5-10.[address] [place] [address] [phone] Red Blood Count 2.54 10^6/uL Low 4.00-5.40 Hemoglobin 9.4 g/dL Low 14.0-18.0 Hematocrit 27 % Low 42-52 Mean Corpuscular Volume 105 fL High 80-94 Mean Corpuscular Hemoglobin 37 pg High 27-31 Mean Corpuscular HGB Conc 35 g/dL N 31-36 Red Cell Distribution Width 15 % N 10.5-15 Platelet Count 80 10^3/uL Low 150-450 22 Mean Platelet Volume 7.5 um3 N 7.4-10.4 Abs Neutrophils 3.5 10^3/uL N 1.5-7.7 Abs Lymphocytes 0.2 10^3/uL Low 1.0-4.8 Abs Monocytes 0.5 10^3/uL N 0-0.8 Abs Eosinophils 0 10^3/uL N 0-0.6 Abs Basophils 0 10^3/uL N 0-0.2 Abs Nucleated RBC 0 10^3/uL Granulocyte % 83.7 % High 38-83 Lymphocyte % 4.8 % Low 25-47 Monocyte % 10.8 % High 0-7 Eosinophil % 0.1 % N 0-6 Basophil % 0.6 % N 0-2 Nucleated Red Blood Cells % 0 Comp Metabolic Panel 07/03/2018 [facility] Sodium 140 mmol/L N 135-[address] [place] [address] [phone] Potassium 4.2 mmol/L N 3.5-5.0 Chloride 109 mmol/L N 101-111 Co2 Carbon Dioxide 30 mmol/L N 22-32 Anion Gap 1 mmol/L Low 2-11 Glucose 111 mg/dL High 70-100 Blood Urea Nitrogen 19 mg/dL N 6-24 Creatinine 1.30 mg/dL High 0.67-1.17 BUN/Creatinine Ratio 14.6 N 8-20 Calcium 9.8 mg/dL N 8.6-10.3 Total Protein 5.8 g/dL Low 6.4-8.9 Albumin 3.9 g/dL N 3.2-5.2 Globulin 1.9 g/dL Low 2-4 Albumin/Globulin Ratio 2.1 N 1-3 Total Bilirubin 0.40 mg/dL N 0.2-1.0 Alkaline Phosphatase 68 U/L N 34-104 Alt 14 U/L N 7-52 Ast 13 U/L N 13-39 Egfr Non- 57.1 >60 Egfr 69.1 >60 23 CBC Auto 06/13/2018 [facility] White Blood 3.2 10^3/uL Low 3.5 -10.[address] [place] [address] [phone] Red Blood Count 2.57 10^6/uL Low 4.00-5.40 Hemoglobin 9.2 g/dL Low 14.0-18.0 Hematocrit 27 % Low 42-52 Mean Corpuscular Volume 103 fL High 80-94 Mean Corpuscular Hemoglobin 36 pg High 27-31 Mean Corpuscular HGB Conc 35 g/dL N 31-36 Red Cell Distribution Width 19 % High 10.5-15 Platelet Count 69 10^3/uL Low 150-450 24 Mean Platelet Volume 7.0 um3 Low 7.4-10.4 Abs Neutrophils 2.4 10^3/uL N 1.5-7.7 Abs Lymphocytes 0.2 10^3/uL Low 1.0-4.8 Abs Monocytes 0.5 10^3/uL N 0-0.8 Abs Eosinophils 0 10^3/uL N 0-0.6 Abs Basophils 0 10^3/uL N 0-0.2 Abs Nucleated RBC 0 10^3/uL Granulocyte % 74.8 % N 38-83 Lymphocyte % 7.7 % Low 25-47 Monocyte % 16.0 % High 0-7 Eosinophil % 0.9 % N 0-6 Basophil % 0.6 % N 0-2 Nucleated Red Blood Cells % 0 Comp Metabolic Panel 06/13/2018 [facility] Sodium 140 mmol/L N 135-145 [address] [place] [address] [phone] Potassium 4.4 mmol/L N 3.5-5.0 Chloride 110 mmol/L N 101-111 Co2 Carbon Dioxide 27 mmol/L N 22-32 Anion Gap 3 mmol/L N 2-11 Glucose 96 mg/dL N 70-100 Blood Urea Nitrogen 24 mg/dL N 6-24 Creatinine 1.29 mg/dL High 0.67-1.17 BUN/Creatinine Ratio 18.6 N 8-20 Calcium 9.6 mg/dL N 8.6-10.3 Total Protein 5.8 g/dL Low 6.4-8.9 Albumin 4.0 g/dL N 3.2-5.2 Globulin 1.8 g/dL Low 2-4 Albumin/Globulin Ratio 2.2 N 1-3 Total Bilirubin 0.40 mg/dL N 0.2-1.0 Alkaline Phosphatase 60 U/L N 34-104 Alt 10 U/L N 7-52 Ast 12 U/L Low 13-39 Egfr Non- 57.6 >60 Egfr 69.7 >60 25 Comp Metabolic Panel 05/22/2018 [facility] Sodium 141 mmol/L N 135-145 [address] [place] [address] [phone] Potassium 4.2 mmol/L N 3.5-5.0 Chloride 110 mmol/L N 101-111 Co2 Carbon Dioxide 24 mmol/L N 22-32 Anion Gap 7 mmol/L N 2-11 Glucose 99 mg/dL N 70-100 Blood Urea Nitrogen 22 mg/dL N 6-24 Creatinine 1.48 mg/dL High 0.67-1.17 BUN/Creatinine Ratio 14.9 N 8-20 Calcium 9.8 mg/dL N 8.6-10.3 Total Protein 5.7 g/dL Low 6.4-8.9 Albumin 3.9 g/dL N 3.2-5.2 Globulin 1.8 g/dL Low 2-4 Albumin/Globulin Ratio 2.2 N 1-3 Total Bilirubin 0.40 mg/dL N 0.2-1.0 Alkaline Phosphatase 49 U/L N 34-104 Alt 12 U/L N 7-52 Ast 12 U/L Low 13-39 Egfr Non- 49.2 >60 Egfr 59.5 >60 26 CBC Auto 05/22/2018 [facility] Abs Neutrophils 2.5 10^3/uL N 1.5-7.[address] [place] [address] [phone] White Blood Count 3.4 10^3/uL Low 3.5-10.8 Red Blood Count 2.51 10^6/uL Low 4.00-5.40 Hemoglobin 8.7 g/dL Low 14.0-18.0 Hematocrit 25 % Low 42-52 Mean Corpuscular Volume 101 fL High 80-94 Mean Corpuscular Hemoglobin 35 pg High 27-31 Mean Corpuscular HGB Conc 34 g/dL N 31-36 Red Cell Distribution Width 23 % High 10.5-15 Platelet Count 75 10^3/uL Low 150-450 27 Mean Platelet Volume 7.8 um3 N 7.4-10.4 Abs Lymphocytes 0.3 10^3/uL Low 1.0-4.8 Abs Monocytes 0.5 10^3/uL N 0-0.8 Abs Eosinophils 0 10^3/uL N 0-0.6 Abs Basophils 0 10^3/uL N 0-0.2 Abs Nucleated RBC 0 10^3/uL Granulocyte % 74.0 % N 38-83 Lymphocyte % 10.0 % Low 25-47 Monocyte % 14.8 % High 0-7 Eosinophil % 0.7 % N 0-6 Basophil % 0.5 % N 0-2 Nucleated Red Blood Cells % 0 Cell Morphology 05/22/2018 [facility] Anisocytosis 2+ [address] [place] [address] [phone] Laboratory test 05/22/2018 [facility] Pathologist (SEE [address] Review NOTE) [place] [address] [phone] Laboratory test 05/22/2018 [facility] Point of Care 108 High 70-10 [address] Glucose mg/dL 0 [place] [address] [phone] CBC Auto Diff 05/02/2018 [facility] White Blood Count 2.5 Low 3.5-[address] 10^3/uL 0.8 [place] [address] [phone] Red Blood Count 2.69 10^6/uL Low 4.00-5.40 Hemoglobin 9.2 g/dL Low 14.0-18.0 Hematocrit 26 % Low 42-52 Mean Corpuscular Volume 96 fL High 80-94 Mean Corpuscular Hemoglobin 34 pg High 27-31 Mean Corpuscular HGB Conc 36 g/dL N 31-36 Red Cell Distribution Width 21 % High 10.5-15 Platelet Count 111 10^3/uL Low 150-450 Mean Platelet Volume 7.4 um3 N 7.4-10.4 Abs Neutrophils 1.8 10^3/uL N 1.5-7.7 Abs Lymphocytes 0.3 10^3/uL Low 1.0-4.8 Abs Monocytes 0.4 10^3/uL N 0-0.8 Abs Eosinophils 0 10^3/uL N 0-0.6 Abs Basophils 0 10^3/uL N 0-0.2 Abs Nucleated RBC 0 10^3/uL Granulocyte % 72.4 % N 38-83 Lymphocyte % 11.0 % Low 25-47 Monocyte % 15.1 % High 0-7 Eosinophil % 0.4 % N 0-6 Basophil % 1.1 % N 0-2 Nucleated Red Blood Cells % 0 Comp Metabolic Panel 05/02/2018 [facility] Sodium 140 mmol/L N 139-[address] [place] [address] [phone] Potassium 4.4 mmol/L N 3.5-5.0 Chloride 108 mmol/L N 101-111 Co2 Carbon Dioxide 28 mmol/L N 22-32 Anion Gap 4 mmol/L N 2-11 Glucose 93 mg/dL N 70-100 Blood Urea Nitrogen 20 mg/dL N 6-24 Creatinine 1.36 mg/dL High 0.67-1.17 BUN/Creatinine Ratio 14.7 N 8-20 Calcium 10.0 mg/dL N 8.6-10.3 Total Protein 5.7 g/dL Low 6.4-8.9 Albumin 3.7 g/dL N 3.2-5.2 Globulin 2.0 g/dL N 2-4 Albumin/Globulin Ratio 1.9 N 1-3 Total Bilirubin 0.50 mg/dL N 0.2-1.0 Alkaline Phosphatase 60 U/L N 34-104 Alt 14 U/L N 7-52 Ast 15 U/L N 13-39 Egfr Non- 54.2 >60 Egfr 69.7 >60 30 Comp Metabolic Panel 04/24/2018 [facility] Sodium 138 mmol/L Low 139-[address] [place] [address] [phone] Potassium 4.0 mmol/L N 3.5-5.0 Chloride 106 mmol/L N 101-111 Co2 Carbon Dioxide 26 mmol/L N 22-32 Anion Gap 6 mmol/L N 2-11 Glucose 105 mg/dL High 70-100 Blood Urea Nitrogen 20 mg/dL N 6-24 Creatinine 1.25 mg/dL High 0.67-1.17 BUN/Creatinine Ratio 16.0 N 8-20 Calcium 9.3 mg/dL N 8.6-10.3 Total Protein 5.7 g/dL Low 6.4-8.9 Albumin 3.7 g/dL N 3.2-5.2 Globulin 2.0 g/dL N 2-4 Albumin/Globulin Ratio 1.9 N 1-3 Total Bilirubin 0.30 mg/dL N 0.2-1.0 Alkaline Phosphatase 64 U/L N 34-104 Alt 17 U/L N 7-52 Ast 14 U/L N 13-39 Egfr Non- 59.7 >60 Egfr 76.8 >60 31 CBC Auto Diff 04/24/2018 [facility] White Blood 4.9 10^3/uL N 3.5-10.[address] [place] [address] [phone] Red Blood Count 2.60 10^6/uL Low 4.0-5.4 Hemoglobin 8.4 g/dL Low 14.0-18.0 Hematocrit 24 % Low 42-52 Mean Corpuscular Volume 94 fL N 80-94 Mean Corpuscular Hemoglobin 32 pg High 27-31 Mean Corpuscular HGB Conc 34 g/dL N 31-36 Red Cell Distribution Width 13 % N 10.5-15 Platelet Count 60 10^3/uL Low 150-450 32 Mean Platelet Volume 7.9 um3 N 7.4-10.4 Abs Neutrophils 4.2 10^3/uL N 1.5-7.7 Abs Lymphocytes 0.3 10^3/uL Low 1.0-4.8 Abs Monocytes 0.4 10^3/uL N 0-0.8 Abs Eosinophils 0 10^3/uL N 0-0.6 Abs Basophils 0 10^3/uL N 0-0.2 Abs Nucleated RBC 0 10^3/uL Granulocyte % 86.3 % High 38-83 Lymphocyte % 5.5 % Low 25-47 Monocyte % 7.6 % High 0-7 Eosinophil % 0.3 % N 0-6 Basophil % 0.3 % N 0-2 Nucleated Red Blood Cells % 0.1 Comp Metabolic Panel 04/10/2018 [facility] Sodium 142 mmol/L N 139-[address] [place] [address] [phone] Potassium 4.0 mmol/L N 3.5-5.0 Chloride 108 mmol/L N 101-111 Co2 Carbon Dioxide 28 mmol/L N 22-32 Anion Gap 6 mmol/L N 2-11 Glucose 111 mg/dL High 70-100 Blood Urea Nitrogen 21 mg/dL N 6-24 Creatinine 1.24 mg/dL High 0.67-1.17 BUN/Creatinine Ratio 16.9 N 8-20 Calcium 10.1 mg/dL N 8.6-10.3 Total Protein 5.9 g/dL Low 6.4-8.9 Albumin 3.9 g/dL N 3.2-5.2 Globulin 2.0 g/dL N 2-4 Albumin/Globulin Ratio 2.0 N 1-3 Total Bilirubin 0.40 mg/dL N 0.2-1.0 Alkaline Phosphatase 70 U/L N 34-104 Alt 12 U/L N 7-52 Ast 12 U/L Low 13-39 Egfr Non- 60.3 >60 Egfr 77.6 >60 33 CBC Auto Diff 04/10/2018 [facility] White Blood 3.8 10^3/uL N 3.5-10.[address] [place] [address] [phone] Red Blood Count 3.37 10^6/uL Low 4.0-5.4 Hemoglobin 10.7 g/dL Low 14.0-18.0 Hematocrit 31 % Low 42-52 Mean Corpuscular Volume 91 fL N 80-94 Mean Corpuscular Hemoglobin 32 pg High 27-31 Mean Corpuscular HGB Conc 35 g/dL N 31-36 Red Cell Distribution Width 12 % N 10.5-15 Platelet Count 64 10^3/uL Low 150-450 34 Mean Platelet Volume 7.2 um3 Low 7.4-10.4 Abs Neutrophils 3.1 10^3/uL N 1.5-7.7 Abs Lymphocytes 0.3 10^3/uL Low 1.0-4.8 Abs Monocytes 0.4 10^3/uL N 0-0.8 Abs Eosinophils 0 10^3/uL N 0-0.6 Abs Basophils 0 10^3/uL N 0-0.2 Abs Nucleated RBC 0 10^3/uL Granulocyte % 79.9 % N 38-83 Lymphocyte % 8.1 % Low 25-47 Monocyte % 11.7 % High 0-7 Eosinophil % 0.1 % N 0-6 Basophil % 0.2 % N 0-2 Nucleated Red Blood Cells % 0 Comp Metabolic Panel 03/30/2018 [facility] Sodium 136 mmol/L Low 139-[address] [place] [address] [phone] Potassium 3.8 mmol/L N 3.5-5.0 Chloride 105 mmol/L N 101-111 Co2 Carbon Dioxide 27 mmol/L N 22-32 Anion Gap 4 mmol/L N 2-11 Glucose 138 mg/dL High 70-100 Blood Urea Nitrogen 30 mg/dL High 6-24 Creatinine 1.10 mg/dL N 0.67-1.17 BUN/Creatinine Ratio 27.3 High 8-20 Calcium 9.9 mg/dL N 8.6-10.3 Total Protein 5.9 g/dL Low 6.4-8.9 Albumin 3.9 g/dL N 3.2-5.2 Globulin 2.0 g/dL N 2-4 Albumin/Globulin Ratio 2.0 N 1-3 Total Bilirubin 0.90 mg/dL N 0.2-1.0 Alkaline Phosphatase 64 U/L N 34-104 Alt 15 U/L N 7-52 Ast 10 U/L Low 13-39 Egfr Non- 69.5 >60 Egfr 89.4 >60 35 Laboratory test 03/30/2018 [facility] Magnesium 2.2 mg/dL N 1.9-2.[address] [place] [address] [phone] CBC Auto Diff 03/30/2018 [facility] White Blood 0.3 Low 3.5- 10.[address] Count 10^3/uL [place], [place] [id number] [phone] Red Blood Count 3.90 10^6/uL Low 4.0-5.4 Hemoglobin 12.3 g/dL Low 14.0-18.0 Hematocrit 35 % Low 42-52 Mean Corpuscular Volume 89 fL N 80-94 Mean Corpuscular Hemoglobin 32 pg High 27-31 Mean Corpuscular HGB Conc 36 g/dL N 31-36 Red Cell Distribution Width 12 % N 10.5-15 Platelet Count 22 10^3/uL Low 150-450 Mean Platelet Volume 6.7 um3 Low 7.4-10.4 Manual Differential 03/30/2018 [facility] Neutrophil % 2 % Low 38-[address] [place] [address] [phone] Lymphocytes % 92 % High 25-47 Monocytes % 0 % N 0-7 Eosinophils % 6 % N 0-6 Basophil % 0 % N 0-2 Abs Neutrophils 0 10^3/uL Low 1.5-7.7 Abs Lymphocytes 0.3 10^3/uL Low 1.0-4.8 Abs Monocytes 0 10^3/uL N 0-0.8 Abs Eosinophils 0 10^3/uL N 0-0.6 Abs Basophils 0 10^3/uL N 0-0.2 RBC Morphology Normal Normal CBC Auto Diff 03/28/2018 [facility] White Blood 4.1 10^3/uL N 3.5-10.[address] [place] [address] [phone] Red Blood Count 4.09 10^6/uL N 4.0-5.4 Hemoglobin 12.9 g/dL Low 14.0-18.0 Hematocrit 37 % Low 42-52 Mean Corpuscular Volume 90 fL N 80-94 Mean Corpuscular Hemoglobin 32 pg High 27-31 Mean Corpuscular HGB Conc 35 g/dL N 31-36 Red Cell Distribution Width 12 % N 10.5-15 Platelet Count 45 10^3/uL Low 150-450 36 Mean Platelet Volume 6.6 um3 Low 7.4-10.4 Abs Neutrophils 3.6 10^3/uL N 1.5-7.7 Abs Lymphocytes 0.4 10^3/uL Low 1.0-4.8 Abs Monocytes 0 10^3/uL N 0-0.8 Abs Eosinophils 0.1 10^3/uL N 0-0.6 Abs Basophils 0 10^3/uL N 0-0.2 Abs Nucleated RBC 0 10^3/uL Granulocyte % 88.2 % High 38-83 Lymphocyte % 8.9 % Low 25-47 Monocyte % 0.4 % N 0-7 Eosinophil % 2.1 % N 0-6 Basophil % 0.4 % N 0-2 Nucleated Red Blood Cells % 0.2 Oncology CBC 07/05/2014 [facility] White Blood 4.1 10^3/uL Low 4.8-10.8 Auto Diff [address] [place] [address] [phone] Red Blood Count 3.32 10^6/uL Low 4.0-5.4 Hemoglobin 10.7 g/dL Low 14.0-18.0 Hematocrit 33 % Low 42-52 Mean Corpuscular Volume 98 fL High 80-94 Mean Corpuscular Hemoglobin 32 pg High 27-31 Mean Corpuscular HGB Conc 33 g/dL N 31-36 Red Cell Distribution Width 13 % N 10.5-15 Platelet Count 64 10^3/uL Low 150-450 Mean Platelet Volume 7 um3 Low 7.4-10.4 Abs Neutrophils 3.3 10^3/uL N 1.5-7.7 Manual Differential 07/05/2014 [facility] Neutrophil % 82 % N 38-[address] [place] [address] [phone] Lymphocytes % 10 % Low 25-47 Monocytes % 7 % N 0-13 Basophil % 1 % N 0-2 Hypochromasia 1+ N Laboratory test 07/05/2014 [facility] Chromosome Hold See Comment N [address] [place] [address] [phone] Leukemia/Lymphoma 07/05/2014 [facility] LCMS Microscopic See Comment N [address] [place] [address] [phone] LCMS Special Studies See Comment N 39 LCMS Final Diagnosis See Comment N 40 1 Specific serologic response to B. burgdorferi infection is not detected, but cannot rule out early infection during which low or undetectable antibody levels to B. burgdorferi may be present. If clinically indicated, a new serum specimen should be submitted in 7-14 days. ADDITIONAL INFORMATION Per CDC criteria, the Lyme IgG Immunoblot is interpreted as positive if IgG-class antibodies are detected to >=5 B. burgdorferi proteins, and the Lyme IgM Immunoblot is interpreted as positive if IgM-class antibodies are detected to >=2 B. burgdorferi proteins. Immunoblot patterns not meeting these criteria should not be interpreted as positive. Epitopes from certain B. burgdorferi proteins (e.g., p41) are conserved across other bacteria, which may lead to the detection of IgM- and/or IgG-class antibodies on the Lyme disease immunoblots in patients without Lyme disease. Immunoblot should only be ordered on specimens that are positive or equivocal by a FDA-licensed Lyme disease antibody screening test (e.g., EIA). Results of the Lyme IgM immunoblot should not be considered in patients with >=30 days of symptoms. Test Performed by: [facility] [address] [place] [address] 2 Because ethnic data is not always readily available, this report includes an eGFR for both -Americans and non- Americans. The National Kidney Disease Education Program (NKDEP) does not endorse the use of the MDRD equation for patients that are not between the ages of 18 and 70, are , have extremes of body size, muscle mass, or nutritional status, or are non- or non-. According to the National Kidney Foundation, irrespective of diagnosis, the stage of the disease is based on the level of kidney function: Stage Description GFR(mL/min/1.73 m(2)) 1 Kidney damage with normal or decreased GFR 90 2 Kidney damage with mild decrease in GFR 60-89 3 Moderate decrease in GFR 30-59 4 Severe decrease in GFR 15-29 5 Kidney failure <15 (or dialysis) 3 Consistent with Previous Results Reported on 05/22/2019 4 Garage Mechanic: [id number] 5 Specific serologic response to B. burgdorferi infection is not detected, but cannot rule out early infection during which low or undetectable antibody levels to B. burgdorferi may be present. If clinically indicated, a new serum specimen should be submitted in 7-14 days. ADDITIONAL INFORMATION Per CDC criteria, the Lyme IgG Immunoblot is interpreted as positive if IgG-class antibodies are detected to >=5 B. burgdorferi proteins, and the Lyme IgM Immunoblot is interpreted as positive if IgM-class antibodies are detected to >=2 B. burgdorferi proteins. Immunoblot patterns not meeting these criteria should not be interpreted as positive. Epitopes from certain B. burgdorferi proteins (e.g., p41) are conserved across other bacteria, which may lead to the detection of IgM- and/or IgG-class antibodies on the Lyme disease immunoblots in patients without Lyme disease. Immunoblot should only be ordered on specimens that are positive or equivocal by a FDA-licensed Lyme disease antibody screening test (e.g., EIA). Results of the Lyme IgM immunoblot should not be considered in patients with >=30 days of symptoms. Test Performed by: [facility] [address] [place] [address] 6 Because ethnic data is not always readily available, this report includes an eGFR for both -Americans and non- Americans. The National Kidney Disease Education Program (NKDEP) does not endorse the use of the MDRD equation for patients that are not between the ages of 18 and 70, are , have extremes of body size, muscle mass, or nutritional status, or are non- or non-. According to the National Kidney Foundation, irrespective of diagnosis, the stage of the disease is based on the level of kidney function: Stage Description GFR(mL/min/1.73 m(2)) 1 Kidney damage with normal or decreased GFR 90 2 Kidney damage with mild decrease in GFR 60-89 3 Moderate decrease in GFR 30-59 4 Severe decrease in GFR 15-29 5 Kidney failure <15 (or dialysis) 7 Consistent with Previous Results Reported on 05/08/19 8 Specific serologic response to B. burgdorferi infection is not detected, but cannot rule out early infection during which low or undetectable antibody levels to B. burgdorferi may be present. If clinically indicated, a new serum specimen should be submitted in 7-14 days. ADDITIONAL INFORMATION Per CDC criteria, the Lyme IgG Immunoblot is interpreted as positive if IgG-class antibodies are detected to >=5 B. burgdorferi proteins, and the Lyme IgM Immunoblot is interpreted as positive if IgM-class antibodies are detected to >=2 B. burgdorferi proteins. Immunoblot patterns not meeting these criteria should not be interpreted as positive. Epitopes from certain B. burgdorferi proteins (e.g., p41) are conserved across other bacteria, which may lead to the detection of IgM- and/or IgG-class antibodies on the Lyme disease immunoblots in patients without Lyme disease. Immunoblot should only be ordered on specimens that are positive or equivocal by a FDA-licensed Lyme disease antibody screening test (e.g., EIA). Results of the Lyme IgM immunoblot should not be considered in patients with >=30 days of symptoms. Test Performed by: [facility] [address] [place] [address] 9 Because ethnic data is not always readily available, this report includes an eGFR for both -Americans and non- Americans. The National Kidney Disease Education Program (NKDEP) does not endorse the use of the MDRD equation for patients that are not between the ages of 18 and 70, are , have extremes of body size, muscle mass, or nutritional status, or are non- or non-. According to the National Kidney Foundation, irrespective of diagnosis, the stage of the disease is based on the level of kidney function: Stage Description GFR(mL/min/1.73 m(2)) 1 Kidney damage with normal or decreased GFR 90 2 Kidney damage with mild decrease in GFR 60-89 3 Moderate decrease in GFR 30-59 4 Severe decrease in GFR 15-29 5 Kidney failure <15 (or dialysis) 10 Consistent with Previous Results Reported on 03/07/19 11 Because ethnic data is not always readily available, this report includes an eGFR for both -Americans and non- Americans. The National Kidney Disease Education Program (NKDEP) does not endorse the use of the MDRD equation for patients that are not between the ages of 18 and 70, are , have extremes of body size, muscle mass, or nutritional status, or are non- or non-. According to the National Kidney Foundation, irrespective of diagnosis, the stage of the disease is based on the level of kidney function: Stage Description GFR(mL/min/1.73 m(2)) 1 Kidney damage with normal or decreased GFR 90 2 Kidney damage with mild decrease in GFR 60-89 3 Moderate decrease in GFR 30-59 4 Severe decrease in GFR 15-29 5 Kidney failure <15 (or dialysis) 12 Consistent with Previous Results Reported on 01/17/19 13 Test Performed by: [facility] [address] [place] [id number] Stan Khalil M.D. Director of Laboratory 14 Because ethnic data is not always readily available, this report includes an eGFR for both -Americans and non- Americans. The National Kidney Disease Education Program (NKDEP) does not endorse the use of the MDRD equation for patients that are not between the ages of 18 and 70, are , have extremes of body size, muscle mass, or nutritional status, or are non- or non-. According to the National Kidney Foundation, irrespective of diagnosis, the stage of the disease is based on the level of kidney function: Stage Description GFR(mL/min/1.73 m(2)) 1 Kidney damage with normal or decreased GFR 90 2 Kidney damage with mild decrease in GFR 60-89 3 Moderate decrease in GFR 30-59 4 Severe decrease in GFR 15-29 5 Kidney failure <15 (or dialysis) 15 Consistent with Previous Results Reported on 11/29/18 16 Consistent with Previous Results Reported on 10/18/18 17 Because ethnic data is not always readily available, this report includes an eGFR for both -Americans and non- Americans. The National Kidney Disease Education Program (NKDEP) does not endorse the use of the MDRD equation for patients that are not between the ages of 18 and 70, are , have extremes of body size, muscle mass, or nutritional status, or are non- or non-. According to the National Kidney Foundation, irrespective of diagnosis, the stage of the disease is based on the level of kidney function: Stage Description GFR(mL/min/1.73 m(2)) 1 Kidney damage with normal or decreased GFR 90 2 Kidney damage with mild decrease in GFR 60-89 3 Moderate decrease in GFR 30-59 4 Severe decrease in GFR 15-29 5 Kidney failure <15 (or dialysis) 18 Because ethnic data is not always readily available, this report includes an eGFR for both -Americans and non- Americans. The National Kidney Disease Education Program (NKDEP) does not endorse the use of the MDRD equation for patients that are not between the ages of 18 and 70, are , have extremes of body size, muscle mass, or nutritional status, or are non- or non-. According to the National Kidney Foundation, irrespective of diagnosis, the stage of the disease is based on the level of kidney function: Stage Description GFR(mL/min/1.73 m(2)) 1 Kidney damage with normal or decreased GFR 90 2 Kidney damage with mild decrease in GFR 60-89 3 Moderate decrease in GFR 30-59 4 Severe decrease in GFR 15-29 5 Kidney failure <15 (or dialysis) 19 Consistent with Previous Results Reported on 09/08/18 20 Because ethnic data is not always readily available, this report includes an eGFR for both -Americans and non- Americans. The National Kidney Disease Education Program (NKDEP) does not endorse the use of the MDRD equation for patients that are not between the ages of 18 and 70, are , have extremes of body size, muscle mass, or nutritional status, or are non- or non-. According to the National Kidney Foundation, irrespective of diagnosis, the stage of the disease is based on the level of kidney function: Stage Description GFR(mL/min/1.73 m(2)) 1 Kidney damage with normal or decreased GFR 90 2 Kidney damage with mild decrease in GFR 60-89 3 Moderate decrease in GFR 30-59 4 Severe decrease in GFR 15-29 5 Kidney failure <15 (or dialysis) 21 Garage Mechanic: [id number] 22 Consistent with Previous Results Reported on 06/13/18 23 Because ethnic data is not always readily available, this report includes an eGFR for both -Americans and non- Americans. The National Kidney Disease Education Program (NKDEP) does not endorse the use of the MDRD equation for patients that are not between the ages of 18 and 70, are , have extremes of body size, muscle mass, or nutritional status, or are non- or non-. According to the National Kidney Foundation, irrespective of diagnosis, the stage of the disease is based on the level of kidney function: Stage Description GFR(mL/min/1.73 m(2)) 1 Kidney damage with normal or decreased GFR 90 2 Kidney damage with mild decrease in GFR 60-89 3 Moderate decrease in GFR 30-59 4 Severe decrease in GFR 15-29 5 Kidney failure <15 (or dialysis) 24 Consistent with Previous Results Reported on 05/22/18 25 Because ethnic data is not always readily available, this report includes an eGFR for both -Americans and non- Americans. The National Kidney Disease Education Program (NKDEP) does not endorse the use of the MDRD equation for patients that are not between the ages of 18 and 70, are , have extremes of body size, muscle mass, or nutritional status, or are non- or non-. According to the National Kidney Foundation, irrespective of diagnosis, the stage of the disease is based on the level of kidney function: Stage Description GFR(mL/min/1.73 m(2)) 1 Kidney damage with normal or decreased GFR 90 2 Kidney damage with mild decrease in GFR 60-89 3 Moderate decrease in GFR 30-59 4 Severe decrease in GFR 15-29 5 Kidney failure <15 (or dialysis) 26 Because ethnic data is not always readily available, this report includes an eGFR for both -Americans and non- Americans. The National Kidney Disease Education Program (NKDEP) does not endorse the use of the MDRD equation for patients that are not between the ages of 18 and 70, are , have extremes of body size, muscle mass, or nutritional status, or are non- or non-. According to the National Kidney Foundation, irrespective of diagnosis, the stage of the disease is based on the level of kidney function: Stage Description GFR(mL/min/1.73 m(2)) 1 Kidney damage with normal or decreased GFR 90 2 Kidney damage with mild decrease in GFR 60-89 3 Moderate decrease in GFR 30-59 4 Severe decrease in GFR 15-29 5 Kidney failure <15 (or dialysis) 27 Consistent with Previous Results Reported on 04/24/18 28 Macrocytic anemia. Moderate thrombocytopenia. No evidence of a hemolytic process. Reviewed by Thelma Simon MD 29 Garage Mechanic: [id number] 30 Because ethnic data is not always readily available, this report includes an eGFR for both -Americans and non- Americans. The National Kidney Disease Education Program (NKDEP) does not endorse the use of the MDRD equation for patients that are not between the ages of 18 and 70, are , have extremes of body size, muscle mass, or nutritional status, or are non- or non-. According to the National Kidney Foundation, irrespective of diagnosis, the stage of the disease is based on the level of kidney function: Stage Description GFR(mL/min/1.73 m(2)) 1 Kidney damage with normal or decreased GFR 90 2 Kidney damage with mild decrease in GFR 60-89 3 Moderate decrease in GFR 30-59 4 Severe decrease in GFR 15-29 5 Kidney failure <15 (or dialysis) 31 Because ethnic data is not always readily available, this report includes an eGFR for both -Americans and non- Americans. The National Kidney Disease Education Program (NKDEP) does not endorse the use of the MDRD equation for patients that are not between the ages of 18 and 70, are , have extremes of body size, muscle mass, or nutritional status, or are non- or non-. According to the National Kidney Foundation, irrespective of diagnosis, the stage of the disease is based on the level of kidney function: Stage Description GFR(mL/min/1.73 m(2)) 1 Kidney damage with normal or decreased GFR 90 2 Kidney damage with mild decrease in GFR 60-89 3 Moderate decrease in GFR 30-59 4 Severe decrease in GFR 15-29 5 Kidney failure <15 (or dialysis) 32 Consistent with Previous Results Reported on 04/10/18 33 Because ethnic data is not always readily available, this report includes an eGFR for both -Americans and non- Americans. The National Kidney Disease Education Program (NKDEP) does not endorse the use of the MDRD equation for patients that are not between the ages of 18 and 70, are , have extremes of body size, muscle mass, or nutritional status, or are non- or non-. According to the National Kidney Foundation, irrespective of diagnosis, the stage of the disease is based on the level of kidney function: Stage Description GFR(mL/min/1.73 m(2)) 1 Kidney damage with normal or decreased GFR 90 2 Kidney damage with mild decrease in GFR 60-89 3 Moderate decrease in GFR 30-59 4 Severe decrease in GFR 15-29 5 Kidney failure <15 (or dialysis) 34 Consistent with Previous Results Reported on 03/30/18 35 Because ethnic data is not always readily available, this report includes an eGFR for both -Americans and non- Americans. The National Kidney Disease Education Program (NKDEP) does not endorse the use of the MDRD equation for patients that are not between the ages of 18 and 70, are , have extremes of body size, muscle mass, or nutritional status, or are non- or non-. According to the National Kidney Foundation, irrespective of diagnosis, the stage of the disease is based on the level of kidney function: Stage Description GFR(mL/min/1.73 m(2)) 1 Kidney damage with normal or decreased GFR 90 2 Kidney damage with mild decrease in GFR 60-89 3 Moderate decrease in GFR 30-59 4 Severe decrease in GFR 15-29 5 Kidney failure <15 (or dialysis) 36 Consistent with Previous Results Reported on 03/22/18 37 This test was canceled by the client laboratory. Cell culture was performed so a processing fee will be charged. 38 A [id number] slide prepared from the flow cytometry specimen is examined. The specimen contains maturing hematopoietic precursors. No morphologic features of acute leukemia, lymphoma or a plasma cell proliferative disorder are identified. PDF Report available at: [email or web address] %Lymphs: 3% Results: Blasts: Not increased by CD45/side scatter and CD34. B-cells: No monotypic; normal expression pattern of CD19, CD10, surface kappa and lambda. T-cells/NK-cells: No aberrant phenotype by CD3 and CD16. Viability: Acceptable Viable lymphocytes (7-AAD): 92% Quality assessment: Specimen received within validated guidelines. 40 Bone marrow, flow cytometric immunophenotyping: Normal immunophenotyping results. No monotypic B-cell population or increase in blasts identified. Comment: Correlation of the flow cytometry results with the bone marrow aspirate and biopsy findings, clinical history and other laboratory features is required for a definitive diagnosis. If desired, we can provide diagnostic services as part of a hematopathology consultation. Please contact the signing pathologist at if you have further questions regarding these analyses. Reviewed by: Patricia Rinaldi M.D 12:56:49 Analyte Specific Reagent: This test was developed and its performance characteristics determined by [facility]. It has not been cleared or approved by the U.S. Food and Drug Administration. Test Performed by: [place] [address] Security Officer: Ruben Breen III, M.D. 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 Gastroenterology
[2019-06-14] MEDS: Enoxaparin(*) 40 MG/0.4 ML SYR SUBCUT SCH (18:17)
[2019-06-14] MEDS ORDERED: Gadoteridol* (CONTRAST) 279.3 MG/ML 10 ML IV ONE (19:42)
[2019-06-14] MEDS: predniSONE TAB* 50 MG PO ONE (23:54)
[2019-06-15] MEDS: predniSONE TAB* 50 MG PO ONE (00:01)
[2019-06-15] MEDS ORDERED: predniSONE TAB* 50 MG PO ONE ×2 (06:00→12:00)
[2019-06-15 08:35] LABS: ABS Lymphocytes 0.2 10^3/ul (1.0-4.8); ABS Monocytes 0.2 10^3/ul (0-0.8); ABS Neutrophils 5.6 10^3/ul (1.5-7.7); Hematocrit 35 % (42-52); Hemoglobin 12.6 g/dL (14.0-18.0); Lymphocyte % 2.9 %; Mean Corpuscular HGB Conc 36 g/dL (31-36); Mean Corpuscular Hemoglobin 34 pg (27-31); Mean Corpuscular Volume 93 fL (80-94); Mean Platelet Volume 7.1 fL (7.4-10.4); Platelet Count 92 10^3/uL (150-450); Red Blood Count 3.74 10^6 /uL (4.18-5.48); Red Cell Distribution Width 14 % (10-15); White Blood Count 5.9 10^3/uL (3.5-10.8)
[2019-06-15 08:42] LABS: Albumin 4.3 g/dL (3.2-5.2); BUN/Creatinine Ratio 20.1 (8-20); Calcium 10.1 mg/dL (8.6-10.3); EGFR African American 61.2 (>60); EGFR Non-African American 50.6 (>60); Globulin 2.1 g/dL (2-4); Potassium 4.1 mmol/L (3.5-5.0); Total Bilirubin 0.9 mg/dL (0.2-1.0); Total Protein 6.4 g/dL (6.4-8.9)
[2019-06-15] MEDS ORDERED: Gadoteridol* (CONTRAST) 279.3 MG/ML 10 ML IV ONE (11:06)
[2019-06-15] MEDS ORDERED: Iodixanol* (CONTRAST) 320 MG/ML 100 ML SDV IV ONE (13:03)
[2019-06-15] MEDS: LORazepam TAB(*) 0.5 MG PO PRN ×2 (17:44→23:41)
[2019-06-15] MEDS: Enoxaparin(*) 40 MG/0.4 ML SYR SUBCUT SCH (17:44)
[2019-06-15] MEDS: Melatonin 3 MG TAB PO SCH (20:39)
[2019-06-15] MEDS: Famotidine TAB* 20 MG PO SCH (20:40)
--- NOTE | 2019-06-15 22:09 | PN ---
Progress Note - Progress Note Date of Service: 06/15/19 SOAP: Subjective: [No significant change in symptoms. Continues to have trouble with focusing his eyes and with balance. No fevers, neck pain or significant GORDON. No fevers.] Objective: [ Vital Signs: Temp Pulse Resp BP Pulse Ox 98.2 F 74 21 102/57 100 06/15/19 15:15 06/15/19 15:15 06/15/19 20:44 06/15/19 15:15 06/15/19 15:15 Diphenhydramine HCl (Benadryl Po*) 50 mg PO ONCE PRN PRN Reason: GIVE 1 HR BEFORE CTA Last Admin: 06/15/19 11:46 Dose: 50 mg Enoxaparin Sodium (Lovenox(*)) 40 mg SUBCUT Q24H [facility] Last Admin: 06/15/19 17:44 Dose: 40 mg Famotidine (Pepcid Tab*) 20 mg PO BEDTIME KAI Last Admin: 06/15/19 20:40 Dose: 20 mg Heparin Sodium (Porcine) (Heparin Flush Port (Ivad)) 5 ml FLUSH DAILY KAI; Protocol Last Admin: 06/15/19 08:05 Dose: 5 ml Lorazepam (Ativan Tab(*)) 0.5 mg PO Q6H PRN PRN Reason: ANXIETY Last Admin: 06/15/19 17:44 Dose: 0.5 mg Melatonin (Melatonin) 3 mg PO BEDTIME KAI Last Admin: 06/15/19 20:39 Dose: 3 mg Pantoprazole Sodium (Protonix Tab*) 40 mg PO DAILY [facility] Laboratory Results - last 24 hr 06/15/19 06/15/19 08:12 08:12 WBC 5.9 RBC 3.74 L Hgb 12.6 L Hct 35 L MCV 93 MCH 34 H MCHC 36 RDW 14 Plt Count 92 L MPV 7.1 L Neut % (Auto) 94.2 Lymph % (Auto) 2.9 Mcintosh % (Auto) 2.8 Eos % (Auto) 0.0 Baso % (Auto) 0.1 Absolute Neuts (auto) 5.6 Absolute Lymphs (auto) 0.2 L Absolute Monos (auto) 0.2 Absolute Eos (auto) 0.0 Absolute Basos (auto) 0.0 Absolute Nucleated RBC 0.0 Nucleated RBC % 0.0 Sodium 136 Potassium 4.1 Chloride 112 H Carbon Dioxide 16 L Anion Gap 8 BUN 29 H Creatinine 1.44 H Est GFR ( Amer) 61.2 Est GFR (Non-Af Amer) 50.6 BUN/Creatinine Ratio 20.1 H Glucose 130 H Calcium 10.1 Total Bilirubin 0.90 AST 12 L ALT 16 Alkaline Phosphatase 66 Total Protein 6.4 Albumin 4.3 Globulin 2.1 Albumin/Globulin Ratio 2.0 Exam: Gen: Relatively well appearing 59 yo male in NAD HEENT: MMM, no m/r/g Resp: CTA, no w/c/r CV: RRR, no m/r/g Abd: soft, nonTTP Neuro: generally nonfocal, subtle L lid lag] Assessment: [This is a 59 yo male with h/o both HD and DLBCL who presents with progressive neurologic symptoms and 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 ] Plan: [1. Abnl CSF - gram stain/cx and cytology pending - elevated WBC and protein with low glucose - clinical picture is not c/w bacterial meningitis - tick borne panel neg - cont empiric steroids for symptom palliation - MRI brain and systemic imaging is negative for obvious recurrent dz Dispo: pending CSF analysis]
[2019-06-16] MEDS: predniSONE TAB* 50 MG PO SCH (08:42)
[2019-06-16] MEDS: Pantoprazole TAB * 40 MG TAB PO SCH (08:42)
[2019-06-16] MEDS: Enoxaparin(*) 40 MG/0.4 ML SYR SUBCUT SCH (15:37)
[2019-06-16] MEDS: Famotidine TAB* 20 MG PO SCH (21:18)
[2019-06-16] MEDS: Melatonin 3 MG TAB PO SCH (21:18)
[2019-06-17] MEDS: Pantoprazole TAB * 40 MG TAB PO SCH (07:43)
[2019-06-17] MEDS: predniSONE TAB* 50 MG PO SCH (07:43)
--- NOTE | 2019-06-17 15:09 | ECHO ---
*[facility]* [place] [address] Fax #: [phone] Transthoracic Echocardiogram Patient: Eduardo Gomez : 1960 Study Date: 06/17/2019 Age: 59 Gender: M HR: 71 bpm Height: 72 in /182.9 cm BSA: 1.81 m^2 Weight: 136.7 lb /62.1 kg BMI: 18.6 kg/m^2 *Licensed Prosthetist/Orthotist: * Guillermina Herron RDCS RN *Referring Physician: * Donell ArmendarizReading Physician: * Negro Flowers MD Indications: SOB. History: Hodgkins lymphoma. Chemotherapy including Adriamycin. Bone marrow transplant. Conclusions Summary: - Left ventricle: Systolic function is mildly reduced. The estimated ejection fraction is 45-50%. Systolic function is worse from the study of November 2012. Doppler parameters are consistent with abnormal left ventricular relaxation (grade 1 diastolic dysfunction). - Regional wall motion abnormality: Hypokinesis of the mid-apical inferior myocardium. Mild global hypokinesis with more pronuounced inferior hypokinesis and the posterolateral is best preserved. - Tricuspid valve: There is trace to mild regurgitation. Study data: Transthoracic echocardiogram. Procedure: Transthoracic echocardiography was performed. Image quality was fair. The study was technically limited due to body habitus. Complete 2D, spectral Doppler, and color flow Doppler. Location: Bedside. Patient status: Inpatient. Patient room number: 440. The previous study was not available, so comparison is made to the report of November 2012. Rhythm: Normal sinus rhythm. Findings Left ventricle: The cavity size is normal. Wall thickness is normal. Systolic function is mildly reduced. The estimated ejection fraction is 45-50%. Systolic function is worse from the study of November 2012 when it was reported as 55-60% Regional wall motion abnormalities: Hypokinesis of the mid-apical inferior myocardium. Doppler parameters are consistent with abnormal left ventricular relaxation (grade 1 diastolic dysfunction). Right ventricle: The cavity size is normal. Systolic function is normal. Left atrium: The atrium is normal in size. Right atrium: The atrium is normal in size. Mitral valve: The leaflets are mildly thickened. There is no evidence of stenosis. There is trace regurgitation. Aortic valve: The valve is trileaflet. The leaflets are mildly thickened. There is no evidence of stenosis. There is no regurgitation. Tricuspid valve: The valve is structurally normal. There is no evidence of stenosis. There is trace to mild regurgitation. Pulmonic valve: Not well visualized. There is no evidence of stenosis. There is trace regurgitation. Aorta: Aortic root: The aortic root is not dilated. Ascending aorta: The ascending aorta is not well visualized. Aortic arch: The aortic arch is not dilated. Pericardium: There is no pericardial effusion. Pulmonary arteries: Not well visualized. Systemic veins: Inferior vena cava: The vessel is normal in size. There is (>= 50%) respiratory change in the IVC dimension. Measurements Left ventricle Value Ref Aortic valve Value Ref CHRISTOPHER, LAX 4.4 cm 4.2 - Michelle diam, ED 2.0 cm ---- 5.8 Michelle diam/bsa, ED 1.1 cm/m^2 ---- ESD, LAX 3.1 cm 2.5 - Peak v, S 0.96 m/sec ---- 4.0 VTI, S 21.5 cm ---- FS, LAX 30 % 25 - 43 Mean grad, S 2.0 mm Hg ---- PW, ED 0.9 cm 0.6 - Peak grad, S 4.0 mm Hg ---- 1.0 LVOT/AV, VTI ratio 0.69 ---- IVS/PW, ED 1.01 -------- E', lat michelle, TDI (L) 8.3 cm/sec >=10.0 Mitral valve Value R ef E/e', lat michelle, TDI 7 -------- Peak E 0.59 m/sec ---- E', med michelle, TDI 7.6 cm/sec >=7.0 Peak A 0.67 m/sec - --- E/e', med michelle, TDI 8 -------- Decel time 306 ms ---- E', avg, TDI 8.0 cm/sec -------- Peak E/A ratio 0.9 ---- E/e', avg, TDI 7 <=14 Pulmonic valve Value Ref LVOT Value Ref Peak v, S 0.72 m/sec ---- Peak annel, S 0.68 m/sec -------- Peak grad, S 2.0 mm Hg ---- VTI, S 14.9 cm -------- Mean grad, S 1 mm Hg -------- Aortic root Value Ref Root diam 3.1 cm <4.0 Ventricular septum Value Ref IVS, ED 0.9 cm 0.6 - Aortic arch Value Ref 1.0 Arch diam 2.5 cm ---- Right ventricle Value Ref Decending aorta Value Ref CHRISTOPHER, LAX 2.6 cm -------- Remedios peak annel 0.83 m/sec ---- CHRISTOPHER minor ax, A4C 3.2 cm 1.9 - mid 3.5 Inferior vena cava Value Ref Diam 1.3 cm ---- Left atrium Value Ref ML dim, A4C 4.0 cm -------- SI dim, A4C 3.8 cm -------- Vol/bsa, ES, 1-p 23 ml/m^2 12 - 37 A4C Right atrium Value Ref ML dim, ES, A4C 3.7 cm 2.6 - 4.4 SI dim, ES, A4C 3.7 cm 3.4 - 5.3 Estimated RAP 3 mm Hg -------- Legend: (L) and (H) maddy values outside specified reference range. Prepared and electronically signed by Negro Flowers MD 06/17/2019 15:09
[2019-06-17] MEDS: Enoxaparin(*) 40 MG/0.4 ML SYR SUBCUT SCH (15:59)
[2019-06-17] MEDS: Famotidine TAB* 20 MG PO SCH (21:10)
[2019-06-17] MEDS: Melatonin 3 MG TAB PO SCH (21:11)
[2019-06-17] MEDS: LORazepam TAB(*) 0.5 MG PO PRN (21:13)
[2019-06-18] MEDS: predniSONE TAB* 50 MG PO SCH (08:33)
[2019-06-18] MEDS: Pantoprazole TAB * 40 MG TAB PO SCH (08:33)
--- NOTE | 2019-06-18 11:57 | PN ---
Progress Note - Progress Note Date of Service: 06/18/19 SOAP: Subjective: []Feeling OK. Respiratory rate has decreased and doesn't feel the "air hunger" as much. Notes slurred speech in the AM yesterday and today. Still difficulty focusing eyes. Difficulty with word finding at times. Would like to experience some "normalcy" again. Two daughters at bedside. Medications: Diphenhydramine HCl (Benadryl Po*) 50 mg PO ONCE PRN PRN Reason: GIVE 1 HR BEFORE CTA Last Admin: 06/15/19 11:46 Dose: 50 mg Enoxaparin Sodium (Lovenox(*)) 40 mg SUBCUT Q24H KAI Last Admin: 06/17/19 15:59 Dose: 40 mg Famotidine (Pepcid Tab*) 20 mg PO BEDTIME KAI Last Admin: 06/17/19 21:10 Dose: 20 mg Heparin Sodium (Porcine) (Heparin Flush Port (Ivad)) 5 ml FLUSH DAILY [facility]; Protocol Last Admin: 06/18/19 09:06 Dose: 5 ml Lorazepam (Ativan Tab(*)) 0.5 mg PO Q6H PRN PRN Reason: ANXIETY Last Admin: 06/17/19 21:13 Dose: 0.5 mg Melatonin (Melatonin) 3 mg PO BEDTIME KAI Last Admin: 06/17/19 21:11 Dose: 3 mg Pantoprazole Sodium (Protonix Tab*) 40 mg PO DAILY [facility] Last Admin: 06/18/19 08:33 Dose: 40 mg Prednisone (Deltasone Tab*) 50 mg PO DAILY [facility] Last Admin: 06/18/19 08:33 Dose: 50 mg Objective: [] Vital Signs Temp Pulse Resp BP Pulse Ox 97.3 F 66 20 123/63 100 06/18/19 07:15 06/18/19 07:15 06/18/19 08:00 06/18/19 07:15 06/18/19 07:15 A&Ox3, clear speech, CN II-XII intact, good strength = bilat. HRR, S1S2 LS clear bilat. throughout with even and non-labored resp. 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 We discussed this at length. Treatment goals would be palliative with hope of decreasing current symptoms and providing remission, however risk of recurrence is very high. Potential clinical trials are an option as he has an excellent performance status and call placed to [facility] , Dr. Hodges. Prognosis without treatment is less than 3 months. Plan: []Consider high dose IV mtx. Palliative consult offered, he deferred for now
[2019-06-18] MEDS: Polyethylene Glycol 3350* 17 GM PACKET PO PRN (14:24)
[2019-06-18] MEDS: Enoxaparin(*) 40 MG/0.4 ML SYR SUBCUT SCH (16:38)
[2019-06-18] MEDS: LORazepam TAB(*) 0.5 MG PO PRN (20:53)
[2019-06-18] MEDS: Melatonin 3 MG TAB PO SCH (20:53)
[2019-06-18] MEDS: Famotidine TAB* 20 MG PO SCH (20:53)
[2019-06-19] MEDS: Pantoprazole TAB * 40 MG TAB PO SCH (10:09)
[2019-06-19] MEDS: predniSONE TAB* 50 MG PO SCH (10:09)
[2019-06-19] MEDS: Enoxaparin(*) 40 MG/0.4 ML SYR SUBCUT SCH (16:22)
[2019-06-19] MEDS: Famotidine TAB* 20 MG PO SCH (20:43)
[2019-06-19] MEDS: Melatonin 3 MG TAB PO SCH (20:43)
[2019-06-19] MEDS: LORazepam TAB(*) 0.5 MG PO PRN (20:44)
[2019-06-20] MEDS: SODIUM BICARBONATE IV SCH ×2 (06:14→12:32)
[2019-06-20] MEDS: D5W IV SCH ×2 (06:14→12:32)
[2019-06-20] MEDS: Pantoprazole TAB * 40 MG TAB PO SCH (08:02)
[2019-06-20] MEDS: predniSONE TAB* 50 MG PO SCH (08:02)
[2019-06-20 09:56] LABS: ABS Lymphocytes 0.3 10^3/ul (1.0-4.8); ABS Monocytes 0.4 10^3/ul (0-0.8); ABS Neutrophils 3.8 10^3/ul (1.5-7.7); Eosinophil % 0.2 %; Hematocrit 35 % (42-52); Lymphocyte % 7.4 %; Mean Corpuscular HGB Conc 37 g/dL (31-36); Mean Corpuscular Hemoglobin 34 pg (27-31); Mean Corpuscular Volume 92 fL (80-94); Mean Platelet Volume 6.7 fL (7.4-10.4); Platelet Count 85 10^3/uL (150-450); Red Blood Count 3.81 10^6 /uL (4.18-5.48); Red Cell Distribution Width 14 % (10-15); White Blood Count 4.5 10^3/uL (3.5-10.8)
[2019-06-20] MEDS ORDERED: PROCHLORPERAZINE INJ 5 MG/ML 2 ML VIAL IV PRN (10:03)
--- NOTE | 2019-06-20 10:05 | PN ---
Progress Note - Progress Note Date of Service: 06/20/19 SOAP: Subjective: [][place] OK overall. Several questions regarding plan of care and options for clinical trials Medications: Enoxaparin Sodium (Lovenox(*)) 40 mg SUBCUT Q24H [facility] Last Admin: 06/19/19 16:22 Dose: Not Given Famotidine (Pepcid Tab*) 20 mg PO BEDTIME [facility] Last Admin: 06/19/19 20:43 Dose: 20 mg Heparin Sodium (Porcine) (Heparin Flush Port (Ivad)) 5 ml FLUSH DAILY [facility]; Protocol Last Admin: 06/20/19 08:02 Dose: Not Given Sodium Bicarbonate 100 meq/ (Dextrose) 1,000 mls @ 200 mls/hr IV Q5H [facility] Last Admin: 06/20/19 06:14 Dose: 200 mls/hr Lorazepam (Ativan Tab(*)) 0.5 mg PO Q6H PRN PRN Reason: Anxiety/nausea/seizure Melatonin (Melatonin) 3 mg PO BEDTIME [facility] Last Admin: 06/19/19 20:43 Dose: 3 mg Ondansetron HCl (Zofran Inj*) 4 mg IV Q4H PRN PRN Reason: NAUSEA Pantoprazole Sodium (Protonix Tab*) 40 mg PO DAILY [facility] Last Admin: 06/20/19 08:02 Dose: 40 mg Polyethylene Glycol/Electrolytes (Miralax*) 17 gm PO 0800,2100 PRN PRN Reason: CONSTIPATION Last Admin: 06/18/19 14:24 Dose: 17 gm Prednisone (Deltasone Tab*) 50 mg PO DAILY [facility] Last Admin: 06/20/19 08:02 Dose: 50 mg Prochlorperazine Edisylate (Compazine Inj*) 10 mg IV Q6H PRN PRN Reason: NAUSEA/VOMITING Objective: [] Vital Signs Temp Pulse Resp BP Pulse Ox 97.3 F 59 17 97/62 100 06/20/19 07:28 06/20/19 07:28 06/20/19 07:55 06/20/19 07:28 06/20/19 07:28 A&Ox3, EOMI, some word finding difficulty but otherwise grossly non-focal today HRR, S1S2 LS clear +BS, abd. soft and non-tender Laboratory Results - last 24 hr 06/20/19 06/20/19 09:36 09:36 WBC 4.5 RBC 3.81 L Hgb 13.0 L Hct 35 L MCV 92 MCH 34 H MCHC 37 H RDW 14 Plt Count 85 L MPV 6.7 L Neut % (Auto) 84.4 Lymph % (Auto) 7.4 [place] % (Auto) 7.9 Eos % (Auto) 0.2 Baso % (Auto) 0.1 Absolute Neuts (auto) 3.8 Absolute Lymphs (auto) 0.3 L Absolute Monos (auto) 0.4 Absolute Eos (auto) 0.0 Absolute Basos (auto) 0.0 Absolute Nucleated RBC 0.0 Nucleated RBC % 0.0 Sodium 136 Potassium 3.5 Chloride 105 Carbon Dioxide 26 Anion Gap 5 BUN 26 H Creatinine 1.30 H Est GFR ( Amer) 68.8 Est GFR (Non-Af Amer) 56.9 BUN/Creatinine Ratio 20.0 Glucose 92 Calcium 10.3 Total Bilirubin 0.90 AST 12 L ALT 26 Alkaline Phosphatase 55 Total Protein 5.8 L Albumin 4.0 Globulin 1.8 L Albumin/Globulin Ratio 2.2 Assessment: []59 yo male with PMH Hodgkin's Lymphoma currently FARHAD and DLBCL presenting with neurological symptoms 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 I reviewed again that while this is generally not considered curative lymphoma does tend to be responsive to therapy and therefore there are options moving forward. Plan: []1. 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 - Sodium bicarb @ 200 ml/hr IV until urine pH >/= 7, hold during Mtx and then resume to maintain alkalization - Mtx. 8 g/m2 IV over 4 hrs (MSA 1.81 m2) = [id number] (rounded) - Leucovorin rescue IV to start 24 hours after completion of mtx. - cont. steroids for now - high emetogenic potential, IV palonosetron and aprepitent pre-med and PRNs on med list - reviewed S/Es, print out provided - Plan repeat LP /p 4 cycles 2. Referral back to specialist @ [facility] [place], Dr. Hodges ~ 1mo. - possible clinical trial of Ibrutinib/Rituximab/Lenolidomide if mtx. ineffective - CarT may also be an option in the future - family is also investigating other options @ research.gov and through their contacts Full Code
[2019-06-20 10:13] LABS: Albumin/Globulin Ratio 2.2 (1-3); Calcium 10.3 mg/dL (8.6-10.3); EGFR African American 68.8 (>60); EGFR Non-African American 56.9 (>60); Globulin 1.8 g/dL (2-4); Potassium 3.5 mmol/L (3.5-5.0); Total Bilirubin 0.9 mg/dL (0.2-1.0); Total Protein 5.8 g/dL (6.4-8.9)
[2019-06-20] MEDS ORDERED: Palonosetron* 0.25 MG in PREMIX* 0 ML IVPB ONE (14:30)
[2019-06-20] MEDS ORDERED: APREPITANT IV* 130 MG in PREMIX* 0 ML IVPB ONE (14:45)
[2019-06-20] MEDS ORDERED: METHOTREXATE IVPB ONE (15:00)
[2019-06-20] MEDS ORDERED: NS 0.9% IVPB ONE (15:00)
[2019-06-20] MEDS: Enoxaparin(*) 40 MG/0.4 ML SYR SUBCUT SCH (18:15)
[2019-06-20] MEDS: Melatonin 3 MG TAB PO SCH (19:32)
[2019-06-20] MEDS: Famotidine TAB* 20 MG PO SCH (19:32)
[2019-06-20] MEDS: LORazepam TAB(*) 0.5 MG PO PRN (19:32)
[2019-06-20] MEDS: Ondansetron INJ* 2 MG/ML VIAL IV PRN (19:33)
[2019-06-20] MEDS ORDERED: D5W IV SCH (23:45)
[2019-06-20] MEDS ORDERED: SODIUM BICARBONATE IV SCH (23:45)
[2019-06-21] MEDS: D5W IV SCH ×7 (00:17→21:55)
[2019-06-21] MEDS: SODIUM BICARBONATE IV SCH ×7 (00:17→21:55)
[2019-06-21 09:13] LABS: Albumin/Globulin Ratio 2.2 (1-3); Calcium 9.9 mg/dL (8.6-10.3); EGFR African American 59.7 (>60); EGFR Non-African American 49.4 (>60); Globulin 1.8 g/dL (2-4); Potassium 2.9 mmol/L (3.5-5.0); Total Bilirubin 3.8 mg/dL (0.2-1.0); Total Protein 5.8 g/dL (6.4-8.9)
[2019-06-21] MEDS: predniSONE TAB* 50 MG PO SCH (09:15)
[2019-06-21 10:04] LABS: ABS Lymphocytes 0.3 10^3/ul (1.0-4.8); ABS Monocytes 0.6 10^3/ul (0-0.8); Eosinophil % 0.3 %; Hematocrit 37 % (42-52); Hemoglobin 13.3 g/dL (14.0-18.0); Lymphocyte % 4.2 %; Mean Corpuscular HGB Conc 37 g/dL (31-36); Mean Corpuscular Hemoglobin 33 pg (27-31); Mean Corpuscular Volume 91 fL (80-94); Mean Platelet Volume 6.5 fL (7.4-10.4); Platelet Count 78 10^3/uL (150-450); Red Cell Distribution Width 14 % (10-15); White Blood Count 6.9 10^3/uL (3.5-10.8)
[2019-06-21] MEDS: NS 0.9% IVPB SCH ×2 (15:17→21:35)
[2019-06-21] MEDS: LEUCOVORIN CALCIUM IVPB SCH ×2 (15:17→21:35)
--- NOTE | 2019-06-21 15:26 | PN ---
Progress Note - Progress Note Date of Service: 06/21/19 SOAP: Subjective: still feeling mentally foggy but maybe a bit better. no nausea or vomiting. Objective: Vital Signs Temp Pulse Resp BP Pulse Ox 97.7 F 67 16 102/50 100 06/21/19 11:55 06/21/19 11:55 06/21/19 11:55 06/21/19 11:55 06/21/19 11:55 perr eomi op moist CTA bl s1 s2 nl soft nt +bs no le edema mild l facial droop A+O x 3 Laboratory Results - last 24 hr 06/20/19 06/21/19 06/21/19 18:20 00:05 08:35 WBC 6.9 RBC 4.00 L Hgb 13.3 L Hct 37 L MCV 91 MCH 33 H MCHC 37 H RDW 14 Plt Count 78 L MPV 6.5 L Neut % (Auto) 86.2 Lymph % (Auto) 4.2 [place]min[place] % (Auto) 9.1 Eos % (Auto) 0.3 Baso % (Auto) 0.2 Absolute Neuts (auto) 6.0 Absolute Lymphs (auto) 0.3 L Absolute Monos (auto) 0.6 Absolute Eos (auto) 0.0 Absolute Basos (auto) 0.0 Absolute Nucleated RBC 0.0 Nucleated RBC % 0.0 Sodium Potassium Chloride Carbon Dioxide Anion Gap BUN Creatinine Est GFR ( Amer) Est GFR (Non-Af Amer) BUN/Creatinine Ratio Glucose Calcium Total Bilirubin AST ALT Alkaline Phosphatase Total Protein Albumin Globulin Albumin/Globulin Ratio Urine pH 8.0 8.0 06/21/19 06/21/19 08:38 11:28 WBC RBC Hgb Hct MCV MCH MCHC RDW Plt Count MPV Neut % (Auto) Lymph % (Auto) Mcminn % (Auto) Eos % (Auto) Baso % (Auto) Absolute Neuts (auto) Absolute Lymphs (auto) Absolute Monos (auto) Absolute Eos (auto) Absolute Basos (auto) Absolute Nucleated RBC Nucleated RBC % Sodium 138 Potassium 2.9 L Chloride 103 Carbon Dioxide 27 Anion Gap 8 BUN 28 H Creatinine 1.47 H Est GFR ( Amer) 59.7 Est GFR (Non-Af Amer) 49.4 BUN/Creatinine Ratio 19.0 Glucose 101 H Calcium 9.9 Total Bilirubin 3.80 H D AST 235 H ALT 635 H Alkaline Phosphatase 59 Total Protein 5.8 L Albumin 4.0 Globulin 1.8 L Albumin/Globulin Ratio 2.2 Urine pH 8.0 Assessment: 59 yo male with PMH Hodgkin's Lymphoma currently FARHAD and DLBCL presenting with neurological symptoms 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 Plan: 1. 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 - Sodium bicarb @ 200 ml/hr IV until urine pH >/= 7 - Mtx. 8 g/m2 IV over 4 hrs (MSA 1.81 m2) = [id number] (rounded)--finished at 8 PM yesterday - Leucovorin rescue - cont. steroids for now - Plan repeat LP /p 2 cycles -close monitoring of MTX levels. level drawn today 12 hours after end of infusion so AM level tomorrow more informative -watch potassium (repleting), check magnesium -transaminitis most certainly from MTX and should be self limited. Given bilirubin >3 will likely dose reduce cycle 2 2. Ref[place] [facility] [place] Hod[place] ~ 1mo. - possible clinical trial of Ibrutinib/Rituximab/Lenolidomide if mtx. ineffective - CarT may also be an option in the future - family is also investigating other options @ research.gov and through their contacts Full Code
[2019-06-21] MEDS: Enoxaparin(*) 40 MG/0.4 ML SYR SUBCUT SCH (16:16)
[2019-06-21] MEDS: Melatonin 3 MG TAB PO SCH (20:49)
[2019-06-21] MEDS: Polyethylene Glycol 3350* 17 GM PACKET PO PRN (20:49)
[2019-06-21] MEDS: Famotidine TAB* 20 MG PO SCH (20:50)
[2019-06-21] MEDS: LORazepam TAB(*) 0.5 MG PO PRN (21:19)
[2019-06-22] MEDS: LEUCOVORIN CALCIUM IVPB SCH ×4 (03:14→21:32)
[2019-06-22] MEDS: NS 0.9% IVPB SCH ×4 (03:14→21:32)
[2019-06-22] MEDS: D5W IV SCH ×2 (03:44→12:41)
[2019-06-22] MEDS: SODIUM BICARBONATE IV SCH ×2 (03:44→12:41)
[2019-06-22 06:11] LABS: ABS Lymphocytes 0.2 10^3/ul (1.0-4.8); ABS Monocytes 0.3 10^3/ul (0-0.8); ABS Neutrophils 4.3 10^3/ul (1.5-7.7); Eosinophil % 0.1 %; Hematocrit 35 % (42-52); Hemoglobin 12.8 g/dL (14.0-18.0); Lymphocyte % 3.6 %; Mean Corpuscular HGB Conc 37 g/dL (31-36); Mean Corpuscular Hemoglobin 33 pg (27-31); Mean Corpuscular Volume 92 fL (80-94); Mean Platelet Volume 6.9 fL (7.4-10.4); Platelet Count 82 10^3/uL (150-450); Red Blood Count 3.83 10^6 /uL (4.18-5.48); Red Cell Distribution Width 14 % (10-15); White Blood Count 4.7 10^3/uL (3.5-10.8)
[2019-06-22 06:27] LABS: Albumin 3.8 g/dL (3.2-5.2); Albumin/Globulin Ratio 2.2 (1-3); BUN/Creatinine Ratio 15.4 (8-20); Calcium 10.2 mg/dL (8.6-10.3); EGFR African American 53.4 (>60); EGFR Non-African American 44.1 (>60); Globulin 1.7 g/dL (2-4); Total Bilirubin 2.7 mg/dL (0.2-1.0); Total Protein 5.5 g/dL (6.4-8.9)
[2019-06-22 06:32] LABS: Potassium 2.6 mmol/L (3.5-5.0)
[2019-06-22] MEDS: predniSONE TAB* 50 MG PO SCH (08:12)
[2019-06-22] MEDS: LORazepam TAB(*) 0.5 MG PO PRN ×2 (08:14→19:57)
[2019-06-22] MEDS: KCL 20 MEQ/100 ML IVPREMIX* 20 MEQ/100 ML BAG IV SCH ×3 (08:58→22:59)
[2019-06-22] MEDS: NS 0.9% 1000 ML** 1,000 ML IV SCH ×2 (09:33→22:56)
[2019-06-22 14:49] LABS: BUN/Creatinine Ratio 13.9 (8-20); Calcium 10.4 mg/dL (8.6-10.3); EGFR African American 36.9 (>60); EGFR Non-African American 30.5 (>60); Potassium 3.3 mmol/L (3.5-5.0)
[2019-06-22] MEDS ORDERED: Acetaminophen TAB* 325 MG PO PRN (16:35)
[2019-06-22] MEDS: Enoxaparin(*) 40 MG/0.4 ML SYR SUBCUT SCH (17:10)
[2019-06-22 18:55] LABS: Potassium 3.3 mmol/L (3.5-5.0)
[2019-06-22] MEDS: Famotidine TAB* 20 MG PO SCH (19:58)
[2019-06-22] MEDS: Melatonin 3 MG TAB PO SCH (19:58)
[2019-06-23] MEDS: KCL 20 MEQ/100 ML IVPREMIX* 20 MEQ/100 ML BAG IV SCH (01:39)
[2019-06-23] MEDS: NS 0.9% IVPB SCH ×4 (04:43→22:14)
[2019-06-23] MEDS: LEUCOVORIN CALCIUM IVPB SCH ×4 (04:43→22:14)
[2019-06-23 06:20] LABS: ABS Lymphocytes 0.3 10^3/ul (1.0-4.8); ABS Monocytes 0.1 10^3/ul (0-0.8); ABS Neutrophils 6.2 10^3/ul (1.5-7.7); Eosinophil % 0.1 %; Hematocrit 32 % (42-52); Hemoglobin 12.1 g/dL (14.0-18.0); Mean Corpuscular HGB Conc 37 g/dL (31-36); Mean Corpuscular Hemoglobin 34 pg (27-31); Mean Corpuscular Volume 91 fL (80-94); Mean Platelet Volume 6.9 fL (7.4-10.4); Nucleated Red Blood Cells % 0.4; Platelet Count 64 10^3/uL (150-450); Red Blood Count 3.57 10^6 /uL (4.18-5.48); Red Cell Distribution Width 14 % (10-15); White Blood Count 6.6 10^3/uL (3.5-10.8)
[2019-06-23 06:31] LABS: Albumin 3.6 g/dL (3.2-5.2); Albumin/Globulin Ratio 2.1 (1-3); BUN/Creatinine Ratio 14.7 (8-20); Calcium 10.1 mg/dL (8.6-10.3); EGFR African American 22.6 (>60); EGFR Non-African American 18.7 (>60); Globulin 1.7 g/dL (2-4); Potassium 3.8 mmol/L (3.5-5.0); Total Bilirubin 1.9 mg/dL (0.2-1.0); Total Protein 5.3 g/dL (6.4-8.9)
[2019-06-23] MEDS: predniSONE TAB* 50 MG PO SCH (09:05)
[2019-06-23] MEDS: Enoxaparin(*) 30 MG/0.3 ML SYR SUBCUT SCH (15:29)
[2019-06-23] MEDS: NS 0.9% 1000 ML** 1,000 ML IV SCH ×2 (17:21→22:14)
[2019-06-23] MEDS: Famotidine TAB* 20 MG PO SCH (22:15)
[2019-06-23] MEDS: Melatonin 3 MG TAB PO SCH (22:15)
[2019-06-23] MEDS: Ondansetron INJ* 2 MG/ML VIAL IV PRN (22:27)
[2019-06-24] MEDS: NS 0.9% IVPB SCH ×4 (03:31→20:39)
[2019-06-24] MEDS: LEUCOVORIN CALCIUM IVPB SCH ×4 (03:31→20:39)
[2019-06-24 06:41] LABS: ABS Lymphocytes 0.3 10^3/ul (1.0-4.8); ABS Neutrophils 6.3 10^3/ul (1.5-7.7); Eosinophil % 0.1 %; Hematocrit 30 % (42-52); Hemoglobin 10.8 g/dL (14.0-18.0); Lymphocyte % 4.7 %; Mean Corpuscular HGB Conc 36 g/dL (31-36); Mean Corpuscular Hemoglobin 35 pg (27-31); Mean Corpuscular Volume 95 fL (80-94); Mean Platelet Volume 7.1 fL (7.4-10.4); Nucleated Red Blood Cells % 0.1; Platelet Count 52 10^3/uL (150-450); Red Blood Count 3.13 10^6 /uL (4.18-5.48); Red Cell Distribution Width 14 % (10-15); White Blood Count 6.7 10^3/uL (3.5-10.8)
[2019-06-24 06:55] LABS: Albumin 3.3 g/dL (3.2-5.2); Albumin/Globulin Ratio 1.9 (1-3); BUN/Creatinine Ratio 15.8 (8-20); Calcium 9.1 mg/dL (8.6-10.3); EGFR African American 15.7 (>60); Globulin 1.7 g/dL (2-4); Potassium 3.8 mmol/L (3.5-5.0); Total Bilirubin 1.3 mg/dL (0.2-1.0)
[2019-06-24] MEDS: predniSONE TAB* 50 MG PO SCH (09:39)
[2019-06-24] MEDS: NS 0.9% 1000 ML** 1,000 ML IV SCH ×2 (09:39→20:39)
[2019-06-24] MEDS: Ondansetron INJ* 2 MG/ML VIAL IV PRN ×2 (16:13→20:56)
[2019-06-24] MEDS: Enoxaparin(*) 30 MG/0.3 ML SYR SUBCUT SCH (16:45)
[2019-06-24] MEDS: Melatonin 3 MG TAB PO SCH (20:40)
[2019-06-24] MEDS: LORazepam TAB(*) 0.5 MG PO PRN (20:40)
[2019-06-24] MEDS: Famotidine TAB* 20 MG PO SCH (20:40)
[2019-06-25] MEDS: NS 0.9% IVPB SCH ×4 (03:19→22:16)
[2019-06-25] MEDS: LEUCOVORIN CALCIUM IVPB SCH ×4 (03:19→22:16)
[2019-06-25 06:23] LABS: Albumin 2.9 g/dL (3.2-5.2); Albumin/Globulin Ratio 1.8 (1-3); BUN/Creatinine Ratio 15.8 (8-20); Calcium 8.9 mg/dL (8.6-10.3); EGFR African American 13.6 (>60); EGFR Non-African American 11.2 (>60); Globulin 1.6 g/dL (2-4); Potassium 4.1 mmol/L (3.5-5.0); Total Bilirubin 0.8 mg/dL (0.2-1.0); Total Protein 4.5 g/dL (6.4-8.9)
[2019-06-25 06:47] LABS: ABS Lymphocytes 0.3 10^3/ul (1.0-4.8); ABS Neutrophils 5.4 10^3/ul (1.5-7.7); Eosinophil % 0.2 %; Hematocrit 27 % (42-52); Hemoglobin 9.7 g/dL (14.0-18.0); Lymphocyte % 5.4 %; Mean Corpuscular HGB Conc 36 g/dL (31-36); Mean Corpuscular Hemoglobin 34 pg (27-31); Mean Corpuscular Volume 95 fL (80-94); Mean Platelet Volume 7.1 fL (7.4-10.4); Platelet Count 45 10^3/uL (150-450); Red Blood Count 2.81 10^6 /uL (4.18-5.48); Red Cell Distribution Width 14 % (10-15); White Blood Count 5.7 10^3/uL (3.5-10.8)
[2019-06-25] MEDS: NS 0.9% 1000 ML** 1,000 ML IV SCH ×2 (06:55→17:38)
[2019-06-25] MEDS: predniSONE TAB* 50 MG PO SCH (09:30)
[2019-06-25] MEDS: Polyethylene Glycol 3350* 17 GM PACKET PO PRN (09:30)
--- NOTE | 2019-06-25 11:02 | PN ---
Progress Note - Progress Note Date of Service: 06/25/19 SOAP: Subjective: [Eduardo feels a little better today. Reports that his visual symptoms have improved. Appetite is still poor, but improving. Urinating well. No vomiting. Miralax was effective for his constipation.] Objective: [ Vital Signs: Temp Pulse Resp BP Pulse Ox 97.6 F 46 18 119/71 100 06/25/19 07:15 06/25/19 07:15 06/25/19 07:15 06/25/19 07:15 06/25/19 07:15 Acetaminophen (Tylenol Tab*) 650 mg PO Q6H PRN PRN Reason: PAIN - MILD Enoxaparin Sodium (Lovenox(*)) 30 mg SUBCUT Q24H COUNTS INCLUDE 234 BEDS AT THE [facility] Last Admin: 06/24/19 16:45 Dose: 30 mg Famotidine (Pepcid Tab*) 20 mg PO BEDTIME COUNTS INCLUDE 234 BEDS AT THE [facility] Last Admin: 06/24/19 20:40 Dose: 20 mg Heparin Sodium (Porcine) (Heparin Flush Port (Ivad)) 5 ml FLUSH DAILY COUNTS INCLUDE 234 BEDS AT THE [facility]; Protocol Last Admin: 06/25/19 09:36 Dose: Not Given Leucovorin Calcium 25 mg/ (Sodium Chloride) 52.5 mls @ 210 mls/hr IVPB Q6H K[facility] Last Admin: 06/25/19 09:30 Dose: 210 mls/hr Sodium Chloride (Ns 0.9% 1000 Ml) 1,000 mls @ 100 mls/hr IV PER RATE COUNTS INCLUDE 234 BEDS AT THE [facility] Last Admin: 06/25/19 06:55 Dose: 100 mls/hr Lorazepam (Ativan Tab(*)) 0.5 mg PO Q6H PRN PRN Reason: Anxiety/nausea/seizure Last Admin: 06/24/19 20:40 Dose: 0.5 mg Melatonin (Melatonin) 3 mg PO BEDTIME [facility] Last Admin: 06/24/19 20:40 Dose: 3 mg Ondansetron HCl (Zofran Inj*) 4 mg IV Q4H PRN PRN Reason: NAUSEA Last Admin: 06/24/19 20:56 Dose: 4 mg Polyethylene Glycol/Electrolytes (Miralax*) 17 gm PO 0800,2100 PRN PRN Reason: CONSTIPATION Last Admin: 06/25/19 09:30 Dose: 17 gm Prednisone (Deltasone Tab*) 50 mg PO DAILY [facility]S INCLUDE 234 BEDS AT THE [facility] Last Admin: 06/25/19 09:30 Dose: 50 mg Prochlorperazine Edisylate (Compazine Inj*) 10 mg IV Q6H PRN PRN Reason: NAUSEA/VOMITING Sodium Bicarbonate (Sodium Bicarbonate (Antacid)*) 650 mg PO TID COUNTS INCLUDE 234 BEDS AT THE [facility] Laboratory Results - last 24 hr 06/24/19 06/25/19 06/25/19 06:20 05:27 05:27 WBC 5.7 RBC 2.81 L Hgb 9.7 L Hct 27 L MCV 95 H MCH 34 H MCHC 36 RDW 14 Plt Count 45 L MPV 7.1 L Neut % (Auto) 93.9 Lymph % (Auto) 5.4 [place] % (Auto) 0.4 Eos % (Auto) 0.2 Baso % (Auto) 0.1 Absolute Neuts (auto) 5.4 Absolute Lymphs (auto) 0.3 L Absolute Monos (auto) 0.0 Absolute Eos (auto) 0.0 Absolute Basos (auto) 0.0 Absolute Nucleated RBC 0.0 Nucleated RBC % 0.0 Sodium 141 Potassium 4.1 Chloride 117 H Carbon Dioxide 14 L* Anion Gap 10 BUN 84 H Creatinine 5.30 H Est GFR ( Amer) 13.6 Est GFR (Non-Af Amer) 11.2 BUN/Creatinine Ratio 15.8 Glucose 95 Calcium 8.9 Total Bilirubin 0.80 AST 104 H ALT 402 H Alkaline Phosphatase 60 Total Protein 4.5 L Albumin 2.9 L Globulin 1.6 L Albumin/Globulin Ratio 1.8 Methotrexate 0.82 Exam: Gen: mildly lethargic but generally well appearing 59 yo male in NAD. 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 RAFFI secondary to HDMTX - MTX level for today is pending - cont leucovorin until MTX <0.1 mmol/L - cont IV NS - measure urine output - cont to monitor Cr 2. Hepatotoxicity secondary to HDMTX - improving 3. 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 DVT prophylaxis - hold Lovenox as plts <50K today Dispo: cont inpt care until renal function recovers and MTX level <0.1 mmmol/L. Spent 30 min face to face with pt and family, >50% spent in counseling.
[2019-06-25] MEDS: Sodium Bicarbonate (ANTACID)* 650 MG TAB PO SCH ×2 (14:43→22:15)
[2019-06-25] MEDS: LORazepam TAB(*) 0.5 MG PO PRN (22:15)
[2019-06-25] MEDS: Melatonin 3 MG TAB PO SCH (22:15)
[2019-06-25] MEDS: Famotidine TAB* 20 MG PO SCH (22:15)
[2019-06-26] MEDS: LEUCOVORIN CALCIUM IVPB SCH ×4 (03:08→21:22)
[2019-06-26] MEDS: NS 0.9% 1000 ML** 1,000 ML IV SCH ×2 (03:08→17:22)
[2019-06-26] MEDS: NS 0.9% IVPB SCH ×4 (03:08→21:22)
[2019-06-26 06:41] LABS: Albumin/Globulin Ratio 1.8 (1-3); BUN/Creatinine Ratio 16.9 (8-20); EGFR African American 14.1 (>60); EGFR Non-African American 11.6 (>60); Globulin 1.7 g/dL (2-4); Potassium 4.1 mmol/L (3.5-5.0); Total Bilirubin 0.7 mg/dL (0.2-1.0); Total Protein 4.7 g/dL (6.4-8.9)
[2019-06-26] MEDS: Sodium Bicarbonate (ANTACID)* 650 MG TAB PO SCH (09:18)
[2019-06-26] MEDS: predniSONE TAB* 50 MG PO SCH (09:18)
--- NOTE | 2019-06-26 10:36 | PN ---
Progress Note - Progress Note Date of Service: 06/26/19 SOAP: Subjective: [Feeling relatively well this am. NaHCO3 upset his stomach last night. Appetite ok. Feels like his initial neuro symptoms have all cleared.] Objective: [ Vital Signs: Temp Pulse Resp BP Pulse Ox 97.3 F 75 16 118/68 100 06/26/19 07:35 06/26/19 07:35 06/26/19 08:00 06/26/19 07:35 06/26/19 07:35 Acetaminophen (Tylenol Tab*) 650 mg PO Q6H PRN PRN Reason: PAIN - MILD Famotidine (Pepcid Tab*) 20 mg PO BEDTIME [facility] Last Admin: 06/25/19 22:15 Dose: 20 mg Heparin Sodium (Porcine) (Heparin Flush Port (Ivad)) 5 ml FLUSH DAILY [facility]; Protocol Last Admin: 06/25/19 09:36 Dose: Not Given Leucovorin Calcium 25 mg/ (Sodium Chloride) 52.5 mls @ 210 mls/hr IVPB Q6H [facility] Last Admin: 06/26/19 09:24 Dose: 210 mls/hr Sodium Chloride (Ns 0.9% 1000 Ml) 1,000 mls @ 100 mls/hr IV PER RATE [facility] Last Admin: 06/26/19 03:08 Dose: 100 mls/hr Lorazepam (Ativan Tab(*)) 0.5 mg PO Q6H PRN PRN Reason: Anxiety/nausea/seizure Last Admin: 06/25/19 22:15 Dose: 0.5 mg Melatonin (Melatonin) 3 mg PO BEDTIME [facility] Last Admin: 06/25/19 22:15 Dose: 3 mg Ondansetron HCl (Zofran Inj*) 4 mg IV Q4H PRN PRN Reason: NAUSEA Last Admin: 06/24/19 20:56 Dose: 4 mg Polyethylene Glycol/Electrolytes (Miralax*) 17 gm PO 0800,2100 PRN PRN Reason: CONSTIPATION Last Admin: 06/25/19 09:30 Dose: 17 gm Prednisone (Deltasone Tab*) 50 mg PO DAILY [facility] Last Admin: 06/26/19 09:18 Dose: 50 mg Prochlorperazine Edisylate (Compazine Inj*) 10 mg IV Q6H PRN PRN Reason: NAUSEA/VOMITING Sodium Bicarbonate (Sodium Bicarbonate (Antacid)*) 650 mg PO TID [facility] Last Admin: 06/26/19 09:18 Dose: Not Given Laboratory Results - last 24 hr 06/26/19 05:55 Sodium 139 Potassium 4.1 Chloride 116 H Carbon Dioxide 14 L* Anion Gap 9 BUN 87 H Creatinine 5.14 H Est GFR ( Amer) 14.1 Est GFR (Non-Af Amer) 11.6 BUN/Creatinine Ratio 16.9 Glucose 91 Calcium 9.0 Total Bilirubin 0.70 AST 74 H ALT 381 H Alkaline Phosphatase 68 Total Protein 4.7 L Albumin 3.0 L Globulin 1.7 L Albumin/Globulin Ratio 1.8 Exam: Gen: Relatively well appearing 59 yo male in NAD sitting up in a chair and reading HEENT: MMM, no thrush CV:RRR, no m/r/g Resp: CTA, no w/c/r Abd: soft, nonTTP Neuro: fluent conversation, nonfocal Ext: no edema Skin: no rashes] Assessment: [59 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 RAFFI secondary to HDMTX - Cr appears to have peaked yesterday and is slightly improved today - MTX level for today is pending - cont leucovorin until MTX <0.1 mmol/L - cont IV NS - good urine output, cont to measure I/Os - cont to monitor Cr 2. Hepatotoxicity secondary to HDMTX - improving 3. 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 DVT prophylaxis - hold Lovenox as plts <50K Dispo: cont inpt care until renal function recovers and MTX level <0.1 mmmol/L. Hopeful for dc home within the next couple of days.
[2019-06-26] MEDS: Sodium Citrate/Citric Acid* 15 ML UDC PO SCH ×3 (13:18→20:03)
[2019-06-26] MEDS: Melatonin 3 MG TAB PO SCH (20:03)
[2019-06-26] MEDS: Famotidine TAB* 20 MG PO SCH (20:03)
[2019-06-26] MEDS: LORazepam TAB(*) 0.5 MG PO PRN (20:06)
[2019-06-27] MEDS: NS 0.9% IVPB SCH ×3 (03:29→15:03)
[2019-06-27] MEDS: NS 0.9% 1000 ML** 1,000 ML IV SCH (03:29)
[2019-06-27] MEDS: LEUCOVORIN CALCIUM IVPB SCH ×3 (03:29→15:03)
[2019-06-27] MEDS: Sodium Citrate/Citric Acid* 15 ML UDC PO SCH ×2 (08:24→13:48)
[2019-06-27 08:28] VITALS: BP 120/70
[2019-06-27] MEDS ORDERED: predniSONE TAB* 10 MG PO SCH (09:00)
[2019-06-27 10:18] LABS: ABS Lymphocytes 0.3 10^3/ul (1.0-4.8); ABS Monocytes 0.1 10^3/ul (0-0.8); ABS Neutrophils 3.4 10^3/ul (1.5-7.7); Eosinophil % 0.7 %; Hematocrit 30 % (42-52); Lymphocyte % 7.3 %; Mean Corpuscular HGB Conc 37 g/dL (31-36); Mean Corpuscular Hemoglobin 35 pg (27-31); Mean Corpuscular Volume 94 fL (80-94); Mean Platelet Volume 7.5 fL (7.4-10.4); Nucleated Red Blood Cells % 0.1; Platelet Count 38 10^3/uL (150-450); Red Blood Count 3.19 10^6 /uL (4.18-5.48); Red Cell Distribution Width 13 % (10-15); White Blood Count 3.8 10^3/uL (3.5-10.8)
[2019-06-27 10:31] LABS: Albumin 3.4 g/dL (3.2-5.2); Albumin/Globulin Ratio 1.9 (1-3); BUN/Creatinine Ratio 15.7 (8-20); Calcium 9.2 mg/dL (8.6-10.3); EGFR African American 15.6 (>60); EGFR Non-African American 12.9 (>60); Globulin 1.8 g/dL (2-4); Potassium 3.6 mmol/L (3.5-5.0); Total Bilirubin 0.7 mg/dL (0.2-1.0); Total Protein 5.2 g/dL (6.4-8.9)
--- NOTE | 2019-06-27 11:36 | DS ---
- Discharge Summary ADMIT DATE:06/14/2019 DISCHARGE DATE: 06/27/2019 DISCHARGE DIAGNOSIS: 1. 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 methotrexate induced renal failure 3. pancytopenia DISCHARGE CONDITION: Fair, stable DISCHARGE DISPOSITION: Home DISCHARGE MEDICATIONS: Home Medications Medication Instructions Recorded Confirmed Type Pantoprazole TAB * [Protonix TAB*] 40 mg PO DAILY 06/14/19 06/14/19 History LORazepam TAB(*) [Ativan 0.5 MG 0.5 mg PO Q6H PRN #60 tab MDD 3 mg 06/27/19 Rx TAB (*)] Melatonin 3 mg PO BEDTIME #30 tab 06/27/19 Rx Ondansetron TAB* [Zofran 4 MG Tab*] 4 mg PO Q6H PRN #90 tab 06/27/19 Rx predniSONE TAB* [Deltasone 10 MG 30 mg PO DAILY #18 tab 06/27/19 Rx TAB*] DISCHARGE FOLLOW UP: 1. TEX Juan 07/03 1:20 pm labs with OV to follow HOSPITAL COURSE: Eduardo was admitted on 06/14 with increased lethargy and AMS. LP unfortunately was notable for recurrence of his diffuse large b cell lymphoma. CT C/A/P did not show any distant diseaes (though PET/CT done prior does show one left parathyroid node that is suspicious). Given his relapsed disease, and in consultation with his consulting oncology Dr. Hodges from [facility], he was administered high dose methotrexate at 8g/m2. This was unfortunately ocmplicate dby acute liver and renal failure despite maintaining a urine PH of > =7.0 with sodium bicarbonate and leucovorin rescue. His creatinine peaked at 5.3 and is trending down. His bilirubin peaked at 3.8 and has normalized. Though slightly elevated MTX levels were experienced, he did not meet criteria for glucarpidase rescue. clinically he is feeling slightly better, and clearly has less mental cloudiness. Plan will be to attempt to stay on time with cycle 2 next Tuesday, however creatinine will need to be back to baseline of ~1.4, with return of baseline blood counts. Dose should be reduced by 25% for peak bilirubin. ultimate plan will be for him to be seen in consultation at [facility] after cycle 2 to discuss ultimate plan. He will be discharged on a prednisone taper. >30 mins spent, >50% in face to face counseling
== END 2019-06-27 15:13 | disposition home or self-care (01) | DRG 841 ==
LOC: MEDTELE 16:39
PROVIDERS: ADMIT Internal Medicine Hematology & Oncology; ATTEND Internal Medicine Hematology & Oncology
DX: C83.30 Diffuse large B-cell lymphoma, unspecified site (principal); D61.818 Other pancytopenia; N17.9 Acute kidney failure, unspecified; C83.31 Diffuse large B-cell lymphoma, lymph nodes of head, face, and neck; N14.1 Nephropathy induced by other drugs, medicaments and biological substances; K71.10 Toxic liver disease with hepatic necrosis, without coma; G51.0 Bell's palsy; Y92.239 Unspecified place in hospital as the place of occurrence of the external cause; K59.00 Constipation, unspecified; T45.1X5A Adverse effect of antineoplastic and immunosuppressive drugs, initial encounter; Z91.041 Radiographic dye allergy status
CPT/HCPCS: 36415; 36591; 70553; 71275; 74177; 80048; 80051; 80053; 80299; 82248; 82607; 82945; 83615; 83921; 83986; 84157; 84443; 85025; 85652; 86140; 86592; 87070; 87077; 87205; 87798; 88112; 88184; 88185; 88305; 89051; 93306; 96374; 96523; 99156; 99157; 99213; 99232; 99233; 99239; A9270-GY; A9579; G0463; J0185; J0640; J1100; J1642; J1650; J2250; J2405; J2469; J3010; J3480; J7060; J7512; J9260; Q9967

== ENCOUNTER 2019-07-16 09:30 | Inpatient (IN) | payer MEDICARE, OTHER ==
[2019-07-16] MEDS ORDERED: LORazepam TAB(*) 0.5 MG PO PRN (11:46)
[2019-07-16] MEDS ORDERED: PROCHLORPERAZINE INJ 5 MG/ML 2 ML VIAL IV PRN (11:46)
[2019-07-16] MEDS ORDERED: Ondansetron TAB* 4 MG PO PRN (11:46)
[2019-07-16] MEDS ORDERED: APREPITANT IV* 130 MG in PREMIX* 0 ML IVPB ONE (13:00)
[2019-07-16] MEDS ORDERED: Palonosetron* 0.25 MG in PREMIX* 0 ML IVPB ONE (13:00)
[2019-07-16] MEDS ORDERED: Dexamethasone IV* 4 MG/ML 1 ML (4 MG) IV SLOW PU ONE (13:00)
[2019-07-16] MEDS ORDERED: NS 0.9% IVPB ONE (13:30)
[2019-07-16] MEDS ORDERED: LEUCOVORIN CALCIUM IVPB SCH (13:30)
[2019-07-16] MEDS ORDERED: METHOTREXATE IVPB ONE (13:30)
[2019-07-16] MEDS ORDERED: NS 0.9% IVPB SCH (13:30)
[2019-07-16] MEDS: Heparin VIAL(*) 5000 UNITS/ML VIAL (FIVE THOUSAND) SUBCUT SCH ×2 (14:02→21:36)
[2019-07-16] MEDS: [UNRECOGNIZED DRUG - OTHER] IV SCH ×2 (14:43→20:15)
[2019-07-16] MEDS: SOD BICARB IV SCH ×2 (14:43→20:15)
[2019-07-17] MEDS: [UNRECOGNIZED DRUG - OTHER] IV SCH ×4 (01:34→20:40)
[2019-07-17] MEDS: SOD BICARB IV SCH ×4 (01:34→20:40)
[2019-07-17 05:57] LABS: ABS Lymphocytes 0.1 10^3/ul (1.0-4.8); ABS Monocytes 0.4 10^3/ul (0-0.8); ABS Neutrophils 7.5 10^3/ul (1.5-7.7); Hematocrit 19 % (42-52); Lymphocyte % 1.8 %; Mean Corpuscular HGB Conc 37 g/dL (31-36); Mean Corpuscular Hemoglobin 35 pg (27-31); Mean Corpuscular Volume 93 fL (80-94); Mean Platelet Volume 6.9 fL (7.4-10.4); Platelet Count 69 10^3/uL (150-450); Red Blood Count 2.02 10^6 /uL (4.18-5.48); Red Cell Distribution Width 16 % (10-15); White Blood Count 8.1 10^3/uL (3.5-10.8)
[2019-07-17 06:06] LABS: Albumin 3.7 g/dL (3.2-5.2); Albumin/Globulin Ratio 2.6 (1-3); Calcium 8.7 mg/dL (8.6-10.3); EGFR African American 44.4 (>60); EGFR Non-African American 36.7 (>60); Globulin 1.4 g/dL (2-4); Potassium 3.7 mmol/L (3.5-5.0); Total Protein 5.1 g/dL (6.4-8.9)
[2019-07-17] MEDS: Heparin VIAL(*) 5000 UNITS/ML VIAL (FIVE THOUSAND) SUBCUT SCH ×3 (07:11→21:10)
--- NOTE | 2019-07-17 10:58 | PN ---
Progress Note - Progress Note Date of Service: 07/17/19 SOAP: Subjective: [Eduardo reports feeling ok this am. Some fatigue and mild nausea. Appetite remains intact, he has been eating his full meals. He has had a GORDON for the last 10d or so which remains persistent and relatively mild.] Objective: [ Vital Signs: Temp Pulse Resp BP Pulse Ox 98.6 F 78 18 124/62 100 07/17/19 09:00 07/17/19 09:00 07/17/19 09:00 07/17/19 09:00 07/17/19 09:00 Laboratory Results - last 24 hr 07/16/19 07/16/19 07/16/19 11:51 14:46 21:00 WBC RBC Hgb Hct MCV MCH MCHC RDW Plt Count MPV Neut % (Auto) Lymph % (Auto) [place] % (Auto) Eos % (Auto) Baso % (Auto) Absolute Neuts (auto) Absolute Lymphs (auto) Absolute Monos (auto) Absolute Eos (auto) Absolute Basos (auto) Absolute Nucleated RBC Nucleated RBC % Sodium Potassium Chloride Carbon Dioxide Anion Gap BUN Creatinine Est GFR ( Amer) Est GFR (Non-Af Amer) BUN/Creatinine Ratio Glucose Calcium Total Bilirubin AST ALT Alkaline Phosphatase Total Protein Albumin Globulin Albumin/Globulin Ratio Urine pH 7.0 8.0 7.0 07/17/19 07/17/19 07/17/19 03:15 05:18 05:18 WBC 8.1 RBC 2.02 L Hgb 7.0 L Hct 19 L MCV 93 MCH 35 H MCHC 37 H RDW 16 H Plt Count 69 L MPV 6.9 L Neut % (Auto) 92.9 Lymph % (Auto) 1.8 [place] % (Auto) 5.2 Eos % (Auto) 0.0 Baso % (Auto) 0.1 Absolute Neuts (auto) 7.5 Absolute Lymphs (auto) 0.1 L Absolute Monos (auto) 0.4 Absolute Eos (auto) 0.0 Absolute Basos (auto) 0.0 Absolute Nucleated RBC 0.0 Nucleated RBC % 0.0 Sodium 137 Potassium 3.7 Chloride 106 Carbon Dioxide 25 Anion Gap 6 BUN 38 H Creatinine 1.90 H Est GFR ( Amer) 44.4 Est GFR (Non-Af Amer) 36.7 BUN/Creatinine Ratio 20.0 Glucose 151 H Calcium 8.7 Total Bilirubin 2.00 H AST 130 H ALT 206 H Alkaline Phosphatase 66 Total Protein 5.1 L Albumin 3.7 Globulin 1.4 L Albumin/Globulin Ratio 2.6 Urine pH 9.0 07/17/19 09:23 WBC RBC Hgb Hct MCV MCH MCHC RDW Plt Count MPV Neut % (Auto) Lymph % (Auto) [place] % (Auto) Eos % (Auto) Baso % (Auto) Absolute Neuts (auto) Absolute Lymphs (auto) Absolute Monos (auto) Absolute Eos (auto) Absolute Basos (auto) Absolute Nucleated RBC Nucleated RBC % Sodium Potassium Chloride Carbon Dioxide Anion Gap BUN Creatinine Est GFR ( Amer) Est GFR (Non-Af Amer) BUN/Creatinine Ratio Glucose Calcium Total Bilirubin AST ALT Alkaline Phosphatase Total Protein Albumin Globulin Albumin/Globulin Ratio Urine pH 9.0 Heparin Sodium (Porcine) (Heparin Vial(*)) 5,000 units SUBCUT Q8HR KAI Last Admin: 07/17/19 07:11 Dose: Not Given Heparin Sodium (Porcine) (Heparin Flush Port (Ivad)) 5 ml FLUSH DAILY KAI; Protocol Last Admin: 07/17/19 08:00 Dose: Not Given Sodium Bicarbonate 100 meq/ (Dextrose) 1,100 mls @ 200 mls/hr IV Q5H KAI Last Admin: 07/17/19 07:14 Dose: 200 mls/hr Leucovorin Calcium 35 mg/ (Sodium Chloride) 53.5 mls @ 214 mls/hr IVPB Q6H KAI Lorazepam (Ativan Tab(*)) 0.5 mg PO Q6H PRN PRN Reason: Anxiety/nausea/seizure Ondansetron HCl (Zofran Tab*) 4 mg PO Q6H PRN PRN Reason: NAUSEA Prochlorperazine Edisylate (Compazine Inj*) 10 mg IV Q6H PRN PRN Reason: NAUSEA/VOMITING Exam: Gen: thin, dressed in street clothes and walking around his room, in NAD HEENT: MMM CV: RRR, no m/r/g Resp: CTA, no w/c/r Abd: soft and nonTTP Neuro: nonfocal] Assessment: [This is a 59 yo male with FISHER EEL SPEAR recurrence of DLBCL admitted for C2 of HDMTX. C1 was c/b hepatic and renal toxicity.] Plan: [1. FISHER EEL SPEAR recurrence of DLBCL - C2D1 HDMTX 07/16/19 (with 25% dose reduction from C1) - today's MTX level is pending - noted rise in transaminases/Tbili which are still within acceptable limits - cont NaHCO3 infusion and leucovorin 20mg/m2 IV q 6h until MTX level <0.1 umol/ L 2. CKD - Cr stable, monitor closely for acute renal toxicity 3. Anemia/thrombocytopenia - secondary to MTX bone marrow suppression - pt would like to avoid blood transfusion today as he does not want a second IV - will plan to transfuse prior to dc Dispo: cont inpatient stay for above interventions until MTX <0.1 umol/L]
[2019-07-17] MEDS: LEUCOVORIN CALCIUM IVPB SCH ×2 (13:21→20:14)
[2019-07-17] MEDS: NS 0.9% IVPB SCH ×2 (13:21→20:14)
[2019-07-18] MEDS: LEUCOVORIN CALCIUM IVPB SCH ×4 (01:27→20:54)
[2019-07-18] MEDS: NS 0.9% IVPB SCH ×4 (01:27→20:54)
[2019-07-18] MEDS: SOD BICARB IV SCH ×6 (02:50→21:30)
[2019-07-18] MEDS: [UNRECOGNIZED DRUG - OTHER] IV SCH ×6 (02:50→21:30)
[2019-07-18] MEDS: Heparin VIAL(*) 5000 UNITS/ML VIAL (FIVE THOUSAND) SUBCUT SCH ×3 (06:58→21:08)
[2019-07-18 07:04] LABS: ABS Lymphocytes 0.3 10^3/ul (1.0-4.8); ABS Monocytes 0.3 10^3/ul (0-0.8); ABS Neutrophils 2.5 10^3/ul (1.5-7.7); Eosinophil % 0.3 %; Hematocrit 19 % (42-52); Mean Corpuscular HGB Conc 37 g/dL (31-36); Mean Corpuscular Hemoglobin 35 pg (27-31); Mean Corpuscular Volume 94 fL (80-94); Platelet Count 70 10^3/uL (150-450); Red Cell Distribution Width 17 % (10-15); White Blood Count 3.1 10^3/uL (3.5-10.8)
[2019-07-18 07:06] LABS: Albumin 3.4 g/dL (3.2-5.2); Albumin/Globulin Ratio 2.4 (1-3); BUN/Creatinine Ratio 14.8 (8-20); Calcium 8.8 mg/dL (8.6-10.3); EGFR African American 46.4 (>60); EGFR Non-African American 38.3 (>60); Globulin 1.4 g/dL (2-4); Potassium 3.2 mmol/L (3.5-5.0); Total Bilirubin 0.7 mg/dL (0.2-1.0); Total Protein 4.8 g/dL (6.4-8.9)
[2019-07-18] MEDS: KCL 10 MEQ/50 ML IVPREMIX* 10 MEQ/50 ML BAG IV SCH ×3 (09:37→13:03)
--- NOTE | 2019-07-18 09:50 | PN ---
Progress Note - Progress Note Date of Service: 07/18/19 SOAP: Subjective: feels much more mentally clear than 2 weeks ago. ALL KEEPER HEAD symptoms that he presented with at relapse have abated. no nausea or vomiting. mild right ankle swelling. Objective: Vital Signs Temp Pulse Resp BP Pulse Ox 97.4 F 70 20 98/52 100 07/18/19 01:35 07/18/19 01:35 07/18/19 01:35 07/18/19 01:35 07/18/19 01:35 sitting up on couch in nad perr eomi op moist cta bl s1 s2 nl soft nt +Bs trace r le edema A+O x 3, nonfocal neurological exam Laboratory Results - last 24 hr 07/17/19 07/17/19 07/17/19 09:23 14:27 21:00 WBC RBC Hgb Hct MCV MCH MCHC RDW Plt Count MPV Neut % (Auto) Lymph % (Auto) [place] % (Auto) Eos % (Auto) Baso % (Auto) Absolute Neuts (auto) Absolute Lymphs (auto) Absolute Monos (auto) Absolute Eos (auto) Absolute Basos (auto) Absolute Nucleated RBC Nucleated RBC % Sodium Potassium Chloride Carbon Dioxide Anion Gap BUN Creatinine Est GFR ( Amer) Est GFR (Non-Af Amer) BUN/Creatinine Ratio Glucose Calcium Magnesium Total Bilirubin AST ALT Alkaline Phosphatase Total Protein Albumin Globulin Albumin/Globulin Ratio Urine pH 9.0 9.0 9.0 07/18/19 07/18/19 07/18/19 01:30 06:10 06:10 WBC 3.1 L RBC 2.00 L Hgb 7.0 L Hct 19 L MCV 94 MCH 35 H MCHC 37 H RDW 17 H Plt Count 70 L MPV 7.0 L Neut % (Auto) 80.9 Lymph % (Auto) 9.0 [place] % (Auto) 9.6 Eos % (Auto) 0.3 Baso % (Auto) 0.2 Absolute Neuts (auto) 2.5 Absolute Lymphs (auto) 0.3 L Absolute Monos (auto) 0.3 Absolute Eos (auto) 0.0 Absolute Basos (auto) 0.0 Absolute Nucleated RBC 0.0 Nucleated RBC % 0.0 Sodium 140 Potassium 3.2 L Chloride 108 Carbon Dioxide 30 Anion Gap 2 BUN 27 H Creatinine 1.83 H Est GFR ( Amer) 46.4 Est GFR (Non-Af Amer) 38.3 BUN/Creatinine Ratio 14.8 Glucose 102 H Calcium 8.8 Magnesium 2.0 Total Bilirubin 0.70 AST 117 H ALT 313 H Alkaline Phosphatase 62 Total Protein 4.8 L Albumin 3.4 Globulin 1.4 L Albumin/Globulin Ratio 2.4 Urine pH 9.0 Assessment: 59 yo male with KEEPER HEAD recurrence of DLBCL admitted for C2 of HDMTX. C1 was c/b hepatic and renal toxicity.] Plan: 1. KEEPER HEAD recurrence of DLBCL - C2D1 HDMTX 07/16/19 (with 25% dose reduction from C1) - today's MTX level is pending - cont NaHCO3 infusion and leucovorin 20mg/m2 IV q 6h until MTX level <0.1 umol/ L 2. CKD - Cr stable, monitor closely for acute renal toxicity, cont leucovorin rescue 3. Anemia/thrombocytopenia - secondary to MTX bone marrow suppression - pt would like to avoid blood transfusion today as he does not want a second IV - will plan to transfuse prior to dc or if < 7 4. hypokalemia: MTX induced -replete IV Dispo: cont inpatient stay for above interventions until MTX <0.1 umol/L] []
[2019-07-19] MEDS: LEUCOVORIN CALCIUM IVPB SCH ×4 (02:01→19:53)
[2019-07-19] MEDS: NS 0.9% IVPB SCH ×4 (02:01→19:53)
[2019-07-19] MEDS: SOD BICARB IV SCH ×3 (02:39→12:52)
[2019-07-19] MEDS: [UNRECOGNIZED DRUG - OTHER] IV SCH ×3 (02:39→12:52)
[2019-07-19 06:23] LABS: ABS Lymphocytes 0.2 10^3/ul (1.0-4.8); ABS Monocytes 0.1 10^3/ul (0-0.8); ABS Neutrophils 1.7 10^3/ul (1.5-7.7); Eosinophil % 0.6 %; Hematocrit 19 % (42-52); Hemoglobin 6.7 g/dL (14.0-18.0); Lymphocyte % 10.8 %; Mean Corpuscular HGB Conc 36 g/dL (31-36); Mean Corpuscular Hemoglobin 34 pg (27-31); Mean Corpuscular Volume 95 fL (80-94); Mean Platelet Volume 6.7 fL (7.4-10.4); Platelet Count 70 10^3/uL (150-450); Red Blood Count 1.95 10^6 /uL (4.18-5.48); Red Cell Distribution Width 17 % (10-15); White Blood Count 2.1 10^3/uL (3.5-10.8)
[2019-07-19 06:39] LABS: Albumin 3.3 g/dL (3.2-5.2); Albumin/Globulin Ratio 2.5 (1-3); BUN/Creatinine Ratio 11.5 (8-20); Calcium 8.7 mg/dL (8.6-10.3); EGFR African American 46.7 (>60); EGFR Non-African American 38.6 (>60); Globulin 1.3 g/dL (2-4); Potassium 3.7 mmol/L (3.5-5.0); Total Bilirubin 0.6 mg/dL (0.2-1.0); Total Protein 4.6 g/dL (6.4-8.9)
[2019-07-19] MEDS: Heparin VIAL(*) 5000 UNITS/ML VIAL (FIVE THOUSAND) SUBCUT SCH ×3 (07:09→20:18)
[2019-07-19] MEDS ORDERED: Acetaminophen TAB* 325 MG PO PRN (09:09)
--- NOTE | 2019-07-19 09:15 | PN ---
Progress Note - Progress Note Date of Service: 07/19/19 SOAP: Subjective: [Feeling ok today. Anxious to get home. Some increased pain in the R wrist ( previously imaged showing soft tissue swelling only).] Objective: [ Vital Signs: Temp Pulse Resp BP Pulse Ox 98.7 F 69 14 102/62 100 07/19/19 07:33 07/19/19 07:33 07/19/19 08:29 07/19/19 07:33 07/19/19 07:33 Acetaminophen (Tylenol Tab*) 650 mg PO Q4H PRN PRN Reason: PAIN - MILD Heparin Sodium (Porcine) (Heparin Vial(*)) 5,000 units SUBCUT Q8HR KAI Last Admin: 07/19/19 07:09 Dose: Not Given Heparin Sodium (Porcine) (Heparin Flush Port (Ivad)) 5 ml FLUSH DAILY KAI; Protocol Last Admin: 07/19/19 08:26 Dose: Not Given Sodium Bicarbonate 100 meq/ (Dextrose) 1,100 mls @ 200 mls/hr IV Q5H KAI Last Admin: 07/19/19 02:39 Dose: 200 mls/hr Leucovorin Calcium 35 mg/ (Sodium Chloride) 53.5 mls @ 214 mls/hr IVPB Q6H KAI Last Admin: 07/19/19 07:51 Dose: 214 mls/hr Lorazepam (Ativan Tab(*)) 0.5 mg PO Q6H PRN PRN Reason: Anxiety/nausea/seizure Ondansetron HCl (Zofran Tab*) 4 mg PO Q6H PRN PRN Reason: NAUSEA Prochlorperazine Edisylate (Compazine Inj*) 10 mg IV Q6H PRN PRN Reason: NAUSEA/VOMITING Laboratory Results - last 24 hr 07/18/19 07/18/19 07/18/19 07:45 09:02 15:15 WBC RBC Hgb Hct MCV MCH MCHC RDW Plt Count MPV Neut % (Auto) Lymph % (Auto) [place] % (Auto) Eos % (Auto) Baso % (Auto) Absolute Neuts (auto) Absolute Lymphs (auto) Absolute Monos (auto) Absolute Eos (auto) Absolute Basos (auto) Absolute Nucleated RBC Nucleated RBC % Sodium Potassium Chloride Carbon Dioxide Anion Gap BUN Creatinine Est GFR ( Amer) Est GFR (Non-Af Amer) BUN/Creatinine Ratio Glucose Calcium Total Bilirubin AST ALT Alkaline Phosphatase Total Protein Albumin Globulin Albumin/Globulin Ratio Urine pH 9.0 9.0 Methotrexate 2.91 07/18/19 07/19/19 07/19/19 20:15 04:50 06:00 WBC 2.1 L RBC 1.95 L Hgb 6.7 L Hct 19 L MCV 95 H MCH 34 H MCHC 36 RDW 17 H Plt Count 70 L MPV 6.7 L Neut % (Auto) 82.8 Lymph % (Auto) 10.8 [place] % (Auto) 5.3 Eos % (Auto) 0.6 Baso % (Auto) 0.5 Absolute Neuts (auto) 1.7 Absolute Lymphs (auto) 0.2 L Absolute Monos (auto) 0.1 Absolute Eos (auto) 0.0 Absolute Basos (auto) 0.0 Absolute Nucleated RBC 0.0 Nucleated RBC % 0.0 Sodium Potassium Chloride Carbon Dioxide Anion Gap BUN Creatinine Est GFR ( Amer) Est GFR (Non-Af Amer) BUN/Creatinine Ratio Glucose Calcium Total Bilirubin AST ALT Alkaline Phosphatase Total Protein Albumin Globulin Albumin/Globulin Ratio Urine pH 9.0 9.0 Methotrexate 07/19/19 07/19/19 06:00 07:45 WBC RBC Hgb Hct MCV MCH MCHC RDW Plt Count MPV Neut % (Auto) Lymph % (Auto) [place] % (Auto) Eos % (Auto) Baso % (Auto) Absolute Neuts (auto) Absolute Lymphs (auto) Absolute Monos (auto) Absolute Eos (auto) Absolute Basos (auto) Absolute Nucleated RBC Nucleated RBC % Sodium 140 Potassium 3.7 Chloride 109 Carbon Dioxide 27 Anion Gap 4 BUN 21 Creatinine 1.82 H Est GFR ( Amer) 46.7 Est GFR (Non-Af Amer) 38.6 BUN/Creatinine Ratio 11.5 Glucose 106 H Calcium 8.7 Total Bilirubin 0.60 AST 54 H ALT 219 H Alkaline Phosphatase 60 Total Protein 4.6 L Albumin 3.3 Globulin 1.3 L Albumin/Globulin Ratio 2.5 Urine pH 9.0 Methotrexate Exam: Gen: thin, dressed in street clothes and eating breakfast HEENT: MMM CV: RRR, no m/r/g Resp: CTA, no w/c/r Abd: soft and nonTTP Neuro: nonfocal Assessment: 59 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 C1 was c/b hepatic and renal toxicity.] Plan: 1. 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 CKD - Cr stable, monitor closely for acute renal toxicity, cont leucovorin rescue 3. Anemia/thrombocytopenia - secondary to MTX bone marrow suppression - pt agreeable to transfusion today with a 2nd IV to be placed with US guidance 4. hypokalemia: MTX induced -repleted yesterday, cont to monitor Dispo: cont inpatient stay for above interventions until MTX <0.1 umol/L]
[2019-07-19] MEDS: Sodium Bicarbonate 8.4% IV* 100 MEQ in D5W 1000 ML BAG* 1,000 ML IV SCH ×2 (16:12→20:56)
[2019-07-20] MEDS: NS 0.9% IVPB SCH ×4 (00:43→20:32)
[2019-07-20] MEDS: LEUCOVORIN CALCIUM IVPB SCH ×4 (00:43→20:32)
[2019-07-20] MEDS: Heparin VIAL(*) 5000 UNITS/ML VIAL (FIVE THOUSAND) SUBCUT SCH ×3 (05:36→21:53)
[2019-07-20 06:23] LABS: ABS Lymphocytes 0.2 10^3/ul (1.0-4.8); ABS Monocytes 0.1 10^3/ul (0-0.8); ABS Neutrophils 1.6 10^3/ul (1.5-7.7); Eosinophil % 0.8 %; Hematocrit 20 % (42-52); Hemoglobin 7.2 g/dL (14.0-18.0); Lymphocyte % 10.3 %; Mean Corpuscular HGB Conc 36 g/dL (31-36); Mean Corpuscular Hemoglobin 34 pg (27-31); Mean Corpuscular Volume 95 fL (80-94); Mean Platelet Volume 6.5 fL (7.4-10.4); Platelet Count 64 10^3/uL (150-450); Red Blood Count 2.11 10^6 /uL (4.18-5.48); Red Cell Distribution Width 17 % (10-15); White Blood Count 1.9 10^3/uL (3.5-10.8)
[2019-07-20 06:33] LABS: Albumin 3.4 g/dL (3.2-5.2); Albumin/Globulin Ratio 2.4 (1-3); BUN/Creatinine Ratio 15.2 (8-20); Calcium 9.2 mg/dL (8.6-10.3); EGFR African American 50.2 (>60); EGFR Non-African American 41.5 (>60); Globulin 1.4 g/dL (2-4); Potassium 3.9 mmol/L (3.5-5.0); Total Bilirubin 0.8 mg/dL (0.2-1.0); Total Protein 4.8 g/dL (6.4-8.9)
[2019-07-20] MEDS: Sodium Bicarbonate 8.4% IV* 100 MEQ in D5W 1000 ML BAG* 1,000 ML IV SCH ×2 (08:56→21:51)
[2019-07-20] MEDS ORDERED: Bisacodyl EC TAB* 5 MG PO ONE (15:33)
--- NOTE | 2019-07-20 17:11 | PN ---
Progress Note - Progress Note Date of Service: 07/20/19 SOAP: Subjective: [Feeling pretty good today. No new complaints.] Objective: [ Vital Signs: Temp Pulse Resp BP Pulse Ox 97.9 F 74 18 109/52 100 07/20/19 11:15 07/20/19 11:15 07/20/19 11:15 07/20/19 11:15 07/20/19 11:15 Acetaminophen (Tylenol Tab*) 650 mg PO Q4H PRN PRN Reason: PAIN - MILD Last Admin: 07/19/19 14:45 Dose: 650 mg Heparin Sodium (Porcine) (Heparin Vial(*)) 5,000 units SUBCUT Q8HR [facility]AI Last Admin: 07/20/19 05:36 Dose: Not Given Heparin Sodium (Porcine) (Heparin Flush Port (Ivad)) 5 ml FLUSH DAILY [facility]; Protocol Last Admin: 07/20/19 08:20 Dose: Not Given Leucovorin Calcium 35 mg/ (Sodium Chloride) 53.5 mls @ 214 mls/hr IVPB Q6H KAI Last Admin: 07/20/19 16:48 Dose: 214 mls/hr Sodium Bicarbonate 100 meq/ (Dextrose) 1,100 mls @ 100 mls/hr IV Q11H [facility] Last Admin: 07/20/19 08:56 Dose: 100 mls/hr Lorazepam (Ativan Tab(*)) 0.5 mg PO Q6H PRN PRN Reason: Anxiety/nausea/seizure Ondansetron HCl (Zofran Tab*) 4 mg PO Q6H PRN PRN Reason: NAUSEA Prochlorperazine Edisylate (Compazine Inj*) 10 mg IV Q6H PRN PRN Reason: NAUSEA/VOMITING Laboratory Results - last 24 hr 07/19/19 07/20/19 07/20/19 20:16 02:00 05:55 WBC 1.9 L RBC 2.11 L Hgb 7.2 L Hct 20 L MCV 95 H MCH 34 H MCHC 36 RDW 17 H Plt Count 64 L MPV 6.5 L Neut % (Auto) 85.2 Lymph % (Auto) 10.3 [place] % (Auto) 3.3 Eos % (Auto) 0.8 Baso % (Auto) 0.4 Absolute Neuts (auto) 1.6 Absolute Lymphs (auto) 0.2 L Absolute Monos (auto) 0.1 Absolute Eos (auto) 0.0 Absolute Basos (auto) 0.0 Absolute Nucleated RBC 0.0 Nucleated RBC % 0.0 Sodium Potassium Chloride Carbon Dioxide Anion Gap BUN Creatinine Est GFR ( Amer) Est GFR (Non-Af Amer) BUN/Creatinine Ratio Glucose Calcium Total Bilirubin AST ALT Alkaline Phosphatase Total Protein Albumin Globulin Albumin/Globulin Ratio Urine pH 9.0 9.0 Methotrexate 07/20/19 07/20/19 07/20/19 05:55 05:55 08:20 WBC RBC Hgb Hct MCV MCH MCHC RDW Plt Count MPV Neut % (Auto) Lymph % (Auto) [place] % (Auto) Eos % (Auto) Baso % (Auto) Absolute Neuts (auto) Absolute Lymphs (auto) Absolute Monos (auto) Absolute Eos (auto) Absolute Basos (auto) Absolute Nucleated RBC Nucleated RBC % Sodium 138 Potassium 3.9 Chloride 111 Carbon Dioxide 25 Anion Gap 2 BUN 26 H Creatinine 1.71 H Est GFR ( Amer) 50.2 Est GFR (Non-Af Amer) 41.5 BUN/Creatinine Ratio 15.2 Glucose 93 Calcium 9.2 Total Bilirubin 0.80 AST 33 ALT 165 H Alkaline Phosphatase 61 Total Protein 4.8 L Albumin 3.4 Globulin 1.4 L Albumin/Globulin Ratio 2.4 Urine pH 9.0 Methotrexate 0.17 Exam: Gen: thin, dressed in street clothes and eating breakfast HEENT: MMM CV: RRR, no m/r/g Resp: CTA, no w/c/r Abd: soft and nonTTP Neuro: nonfocal Assessment: 59 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 C1 was c/b hepatic and renal toxicity.] Plan: 1. 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 CKD - Cr stable, monitor closely for acute renal toxicity, cont leucovorin rescue 3. Anemia/thrombocytopenia - secondary to MTX bone marrow suppression - pt received 1U PRBCs yesterday 4. hypokalemia: MTX induced -repleted, cont to monitor Dispo: plan for dc home tomorrow am
[2019-07-21] MEDS: LEUCOVORIN CALCIUM IVPB SCH ×2 (01:42→09:23)
[2019-07-21] MEDS: NS 0.9% IVPB SCH ×2 (01:42→09:23)
[2019-07-21] MEDS: Sodium Bicarbonate 8.4% IV* 100 MEQ in D5W 1000 ML BAG* 1,000 ML IV SCH ×2 (03:10→12:03)
[2019-07-21] MEDS: Heparin VIAL(*) 5000 UNITS/ML VIAL (FIVE THOUSAND) SUBCUT SCH (04:16)
[2019-07-21 05:09] LABS: ABS Lymphocytes 0.3 10^3/ul (1.0-4.8); ABS Monocytes 0.1 10^3/ul (0-0.8); ABS Neutrophils 2.1 10^3/ul (1.5-7.7); Eosinophil % 0.4 %; Hematocrit 21 % (42-52); Hemoglobin 7.7 g/dL (14.0-18.0); Lymphocyte % 10.8 %; Mean Corpuscular HGB Conc 37 g/dL (31-36); Mean Corpuscular Hemoglobin 34 pg (27-31); Mean Corpuscular Volume 94 fL (80-94); Mean Platelet Volume 6.4 fL (7.4-10.4); Nucleated Red Blood Cells % 0.1; Platelet Count 64 10^3/uL (150-450); Red Blood Count 2.25 10^6 /uL (4.18-5.48); Red Cell Distribution Width 16 % (10-15); White Blood Count 2.5 10^3/uL (3.5-10.8)
[2019-07-21 05:28] LABS: Albumin 3.6 g/dL (3.2-5.2); Albumin/Globulin Ratio 2.3 (1-3); BUN/Creatinine Ratio 12.9 (8-20); Calcium 9.4 mg/dL (8.6-10.3); EGFR African American 50.5 (>60); EGFR Non-African American 41.8 (>60); Globulin 1.6 g/dL (2-4); Potassium 3.8 mmol/L (3.5-5.0); Total Bilirubin 0.7 mg/dL (0.2-1.0); Total Protein 5.2 g/dL (6.4-8.9)
[2019-07-21 08:32] VITALS: BP 113/69
--- NOTE | 2019-08-22 23:09 | DS ---
DISCHARGE SUMMARY: DATE OF ADMISSION: 07/16/19 DATE OF DISCHARGE: 07/21/19 DISCHARGE DIAGNOSES: 1. Diffuse large B cell lymphoma, recurrent, involving the central nervous system and admitted for high-dose methotrexate chemotherapy. 2. Renal insufficiency. 3. Pancytopenia. MEDICATIONS AT THE TIME OF DISCHARGE: Included: 1. Zofran 4 mg q.6 hours p.r.n. 2. Ativan 0.5 mg q.6 hours p.r.n., not to exceed 2 mg per day. The patient was asked to follow up in the office on 07/30/19. CONDITION ON DISCHARGE: Discharged to home in stable condition. HISTORY AND HOSPITAL COURSE: Mr. Gomez is a 59-year-old male whose details are fully outlined in the accompanying history and physical. 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 He has received 1 previous cycle of high dose methotrexate. That hospitalization was complicated by severe hepatic and renal insufficiency, which had improved significantly admitted at this time. He received his high dose methotrexate and subsequently had methotrexate levels followed by being on leucovorin. The urine was appropriately alkalized. He was discharged to home once his methotrexate level had reached a safe level. On the day prior to discharge, methotrexate level was down to 0.17 with the safe level of 0.10. It was felt for sure that he met this by the time of discharge. There were no complications during this admission. Creatinine at the time of admission was 1.85. At the time of discharge, it was 1.71. It should be noted during the previous hospitalization his creatinine has risen to as high as over 5. Hepatic function during this admission included transaminases in the 200 to 300 range although down to 165 by the time of discharge. [id number] #: [id number] [facility]
== END 2019-07-21 11:55 | disposition home or self-care (01) | DRG 842 ==
LOC: MED 11:19
PROVIDERS: ADMIT Internal Medicine Hematology & Oncology; ATTEND Internal Medicine Hematology & Oncology
PROC: 30233N1 Transfusion of Nonautologous Red Blood Cells into Peripheral Vein, Percutaneous Approach (ICD-10-PCS; principal; 2019-07-19)
DX: C83.39 Diffuse large B-cell lymphoma, extranodal and solid organ sites (principal); N18.9 Chronic kidney disease, unspecified; D69.6 Thrombocytopenia, unspecified; D64.89 Other specified anemias; E87.6 Hypokalemia; M25.531 Pain in right wrist; M25.471 Effusion, right ankle; Z85.71 Personal history of Hodgkin lymphoma; K59.00 Constipation, unspecified; Z91.041 Radiographic dye allergy status; Z79.899 Other long term (current) drug therapy
CPT/HCPCS: 36415; 36591; 80053; 80299; 82607; 82746; 83735; 83986; 85025; 86850; 86900; 86901; 86922; 99222; 99232; A9270-GY; J0185; J0640; J1100; J1642; J1644; J2469; J3480; J7060; J9260; P9040

== ENCOUNTER 2019-08-13 12:46 | Inpatient (IN) | payer MEDICARE, OTHER ==
[2019-08-13] MEDS ORDERED: Sodium Bicarbonate 8.4% IV* 100 MEQ in D5W 1000 ML BAG* 1,000 ML IV SCH (14:00)
[2019-08-13] MEDS: [UNRECOGNIZED DRUG - OTHER] IV SCH ×2 (16:15→21:34)
[2019-08-13] MEDS: SOD BICARB IV SCH ×2 (16:15→21:34)
[2019-08-13] MEDS: Enoxaparin(*) 30 MG/0.3 ML SYR SUBCUT SCH (16:16)
[2019-08-14] MEDS: SOD BICARB IV SCH ×4 (02:49→18:27)
[2019-08-14] MEDS: [UNRECOGNIZED DRUG - OTHER] IV SCH ×4 (02:49→18:27)
[2019-08-14 06:23] LABS: ABS Eosinophils 0.1 10^3/ul (0-0.6); ABS Lymphocytes 0.2 10^3/ul (1.0-4.8); ABS Monocytes 0.4 10^3/ul (0-0.8); ABS Neutrophils 1.3 10^3/ul (1.5-7.7); Eosinophil % 2.9 %; Hematocrit 22 % (42-52); Hemoglobin 7.9 g/dL (14.0-18.0); Lymphocyte % 8.9 %; Mean Corpuscular HGB Conc 35 g/dL (31-36); Mean Corpuscular Hemoglobin 35 pg (27-31); Mean Corpuscular Volume 100 fL (80-94); Mean Platelet Volume 6.6 fL (7.4-10.4); Nucleated Red Blood Cells % 0.2; Platelet Count 67 10^3/uL (150-450); Red Blood Count 2.24 10^6 /uL (4.18-5.48); Red Cell Distribution Width 16 % (10-15); White Blood Count 1.9 10^3/uL (3.5-10.8)
[2019-08-14 06:41] LABS: Albumin 3.5 g/dL (3.2-5.2); Albumin/Globulin Ratio 2.7 (1-3); BUN/Creatinine Ratio 15.6 (8-20); Calcium 8.6 mg/dL (8.6-10.3); EGFR African American 47.6 (>60); EGFR Non-African American 39.3 (>60); Globulin 1.3 g/dL (2-4); Potassium 3.8 mmol/L (3.5-5.0); Total Bilirubin 0.4 mg/dL (0.2-1.0); Total Protein 4.8 g/dL (6.4-8.9)
[2019-08-14] MEDS ORDERED: Palonosetron* 0.25 MG in PREMIX* 0 ML IVPB ONE (08:00)
[2019-08-14] MEDS ORDERED: Dexamethasone IV* 8 MG in PREMIX* 0 ML IVPB ONE (08:15)
[2019-08-14] MEDS ORDERED: APREPITANT IV* 130 MG in PREMIX* 0 ML IVPB ONE (08:30)
[2019-08-14] MEDS ORDERED: METHOTREXATE IVPB ONE (09:00)
[2019-08-14] MEDS ORDERED: NS 0.9% IVPB ONE (09:00)
--- NOTE | 2019-08-14 09:15 | PN ---
Progress Note - Progress Note Date of Service: 08/14/19 SOAP: Subjective: []Feeling well today. Frustrated that he felt crummy all day yesterday during first Rituximab infusion, "When I get stressed it just gets worse." Had a headache and neck and shoulder pain, "and it radiated all down my side." Appears to have resolved spontaneously when he arrived to floor. Several questions regarding mechanism of action of meds and plan of care. Medications: Enoxaparin Sodium (Lovenox(*)) 30 mg SUBCUT Q24H KAI Last Admin: 08/13/19 16:16 Dose: Not Given Methotrexate Sodium 11,000 mg/ (Sodium Chloride) 1,000 mls @ 250 mls/hr IVPB ONCE ONE Stop: 08/14/19 12:59 Leucovorin Calcium 35 mg/ (Sodium Chloride) 53.5 mls @ 214 mls/hr IVPB Q6H KAI Sodium Bicarbonate 100 meq/ (Dextrose) 1,100 mls @ 200 mls/hr IV Q5H KAI Last Admin: 08/14/19 08:18 Dose: 200 mls/hr Objective: [] Vital Signs Temp Pulse Resp BP Pulse Ox 97.3 F 73 16 109/54 100 08/13/19 23:00 08/13/19 23:00 08/13/19 23:00 08/13/19 23:00 08/13/19 23:00 A&Ox3, neuro grossly non-focal HRR, S1S2 LS clear Laboratory Results - last 24 hr 08/13/19 08/13/19 08/14/19 17:15 22:55 04:20 WBC RBC Hgb Hct MCV MCH MCHC RDW Plt Count MPV Neut % (Auto) Lymph % (Auto) [place] % (Auto) Eos % (Auto) Baso % (Auto) Absolute Neuts (auto) Absolute Lymphs (auto) Absolute Monos (auto) Absolute Eos (auto) Absolute Basos (auto) Absolute Nucleated RBC Nucleated RBC % Sodium Potassium Chloride Carbon Dioxide Anion Gap BUN Creatinine Est GFR ( Amer) Est GFR (Non-Af Amer) BUN/Creatinine Ratio Glucose Calcium Total Bilirubin AST ALT Alkaline Phosphatase Total Protein Albumin Globulin Albumin/Globulin Ratio Urine pH 6.0 7.0 8.0 08/14/19 08/14/19 06:10 06:10 WBC 1.9 L RBC 2.24 L Hgb 7.9 L Hct 22 L MCV 100 H MCH 35 H MCHC 35 RDW 16 H Plt Count 67 L MPV 6.6 L Neut % (Auto) 69.0 Lymph % (Auto) 8.9 [place] % (Auto) 18.6 Eos % (Auto) 2.9 Baso % (Auto) 0.6 Absolute Neuts (auto) 1.3 L Absolute Lymphs (auto) 0.2 L Absolute Monos (auto) 0.4 Absolute Eos (auto) 0.1 Absolute Basos (auto) 0.0 Absolute Nucleated RBC 0.0 Nucleated RBC % 0.2 Sodium 142 Potassium 3.8 Chloride 113 H Carbon Dioxide 28 Anion Gap 1 L BUN 28 H Creatinine 1.79 H Est GFR ( Amer) 47.6 Est GFR (Non-Af Amer) 39.3 BUN/Creatinine Ratio 15.6 Glucose 106 H Calcium 8.6 Total Bilirubin 0.40 AST 14 ALT 22 Alkaline Phosphatase 53 Total Protein 4.8 L Albumin 3.5 Globulin 1.3 L Albumin/Globulin Ratio 2.7 Urine pH Assessment: []59 yo male with 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 Plan: []- Methotrexate infusing over 4 hours (started this AM) - resume bicarb after mtx @ 200 mL/hr to maintain urine pH >/=7 - daily mtx. levels couriered to [facility] starting tomorrow AM - Leucovorin rescue q6hrs starting tomorrow AM until mtx level < 0.1 micromol/L - strict I&Os Full Code
[2019-08-14] MEDS: Enoxaparin(*) 30 MG/0.3 ML SYR SUBCUT SCH (15:18)
[2019-08-15] MEDS: [UNRECOGNIZED DRUG - OTHER] IV SCH ×7 (04:18→23:02)
[2019-08-15] MEDS: SOD BICARB IV SCH ×7 (04:18→23:02)
[2019-08-15 05:51] LABS: ABS Lymphocytes 0.2 10^3/ul (1.0-4.8); ABS Monocytes 0.7 10^3/ul (0-0.8); ABS Neutrophils 7.3 10^3/ul (1.5-7.7); Eosinophil % 0.1 %; Hematocrit 23 % (42-52); Hemoglobin 8.1 g/dL (14.0-18.0); Lymphocyte % 2.6 %; Mean Corpuscular HGB Conc 36 g/dL (31-36); Mean Corpuscular Hemoglobin 36 pg (27-31); Mean Corpuscular Volume 99 fL (80-94); Mean Platelet Volume 7.1 fL (7.4-10.4); Platelet Count 81 10^3/uL (150-450); Red Blood Count 2.28 10^6 /uL (4.18-5.48); Red Cell Distribution Width 16 % (10-15); White Blood Count 8.3 10^3/uL (3.5-10.8)
[2019-08-15 06:04] LABS: Albumin 3.5 g/dL (3.2-5.2); Albumin/Globulin Ratio 2.7 (1-3); BUN/Creatinine Ratio 19.1 (8-20); Calcium 8.6 mg/dL (8.6-10.3); EGFR African American 53.4 (>60); EGFR Non-African American 44.1 (>60); Globulin 1.3 g/dL (2-4); Potassium 3.5 mmol/L (3.5-5.0); Total Protein 4.8 g/dL (6.4-8.9)
[2019-08-15] MEDS: NS 0.9% IVPB SCH ×3 (08:13→22:30)
[2019-08-15] MEDS: LEUCOVORIN CALCIUM IVPB SCH ×3 (08:13→22:30)
--- NOTE | 2019-08-15 11:35 | PN ---
Progress Note - Progress Note Date of Service: 08/15/19 SOAP: Subjective: []Feeling well this AM. Has some feeling of bloating and fullness that started after lunch yesterday. Doesn't consider it nausea and told the nurse he felt like he wasn't digesting fast enough. Good urine output. BM this AM. No GORDON or dizziness. Medications: Enoxaparin Sodium (Lovenox(*)) 30 mg SUBCUT Q24H [facility] Last Admin: 08/14/19 15:18 Dose: Not Given Leucovorin Calcium 35 mg/ (Sodium Chloride) 53.5 mls @ 214 mls/hr IVPB Q6H [facility] Last Admin: 08/15/19 08:13 Dose: 214 mls/hr Sodium Bicarbonate 100 meq/ (Dextrose) 1,100 mls @ 200 mls/hr IV Q5H [facility] Last Admin: 08/15/19 11:34 Dose: 200 mls/hr Objective: [] Vital Signs Temp Pulse Resp BP Pulse Ox 97.8 F 69 20 106/54 100 08/15/19 07:15 08/15/19 07:15 08/15/19 07:15 08/15/19 07:15 08/15/19 07:15 A&Ox3, EOMI, communicating clearing, neuro grossly non-focal HRR, S1S2 LS clear +BS, soft and non-tender No edema Laboratory Results - last 24 hr 08/15/19 08/15/19 05:20 05:20 WBC 8.3 RBC 2.28 L Hgb 8.1 L Hct 23 L MCV 99 H MCH 36 H MCHC 36 RDW 16 H Plt Count 81 L MPV 7.1 L Neut % (Auto) 88.1 Lymph % (Auto) 2.6 [place] % (Auto) 9.0 Eos % (Auto) 0.1 Baso % (Auto) 0.2 Absolute Neuts (auto) 7.3 Absolute Lymphs (auto) 0.2 L Absolute Monos (auto) 0.7 Absolute Eos (auto) 0.0 Absolute Basos (auto) 0.0 Absolute Nucleated RBC 0.0 Nucleated RBC % 0.0 Sodium 139 Potassium 3.5 Chloride 108 Carbon Dioxide 28 Anion Gap 3 BUN 31 H Creatinine 1.62 H Est GFR ( Amer) 53.4 Est GFR (Non-Af Amer) 44.1 BUN/Creatinine Ratio 19.1 Glucose 115 H Calcium 8.6 Total Bilirubin 1.00 AST 151 H ALT 258 H Alkaline Phosphatase 65 Total Protein 4.8 L Albumin 3.5 Globulin 1.3 L Albumin/Globulin Ratio 2.7 Urine pH 08/14/19 08/14/19 08/14/19 10:09 16:15 22:11 Urine pH 9.0 7.0 8.0 08/15/19 04:00 Urine pH 9.0 Assessment: []59 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 He is now 24 hours post infusion and feeling well overall, methotrexate level pending. Plan: []- cont. bicarb @ 200 mL/hr to maintain urine pH >/=7, if next urine pH >9 will decrease rate to 150 mL/hr - daily mtx. levels couriered to [facility], level pending today - Leucovorin rescue q6hrs started today, cont. until mtx level < 0.1 micromol/L - strict I&Os - suggest trial of compazine prior to lunch to help with abd. symptoms Full Code
[2019-08-15] MEDS: Prochlorperazine TAB* 10 MG PO PRN (12:55)
[2019-08-15] MEDS: Enoxaparin(*) 30 MG/0.3 ML SYR SUBCUT SCH (15:18)
[2019-08-16] MEDS: SOD BICARB IV SCH ×4 (04:07→18:17)
[2019-08-16] MEDS: [UNRECOGNIZED DRUG - OTHER] IV SCH ×4 (04:07→18:17)
[2019-08-16] MEDS: NS 0.9% IVPB SCH ×5 (04:07→22:51)
[2019-08-16] MEDS: LEUCOVORIN CALCIUM IVPB SCH ×5 (04:07→22:51)
[2019-08-16 06:08] LABS: ABS Lymphocytes 0.2 10^3/ul (1.0-4.8); ABS Monocytes 0.4 10^3/ul (0-0.8); ABS Neutrophils 2.9 10^3/ul (1.5-7.7); Eosinophil % 0.8 %; Hematocrit 25 % (42-52); Hemoglobin 8.8 g/dL (14.0-18.0); Lymphocyte % 6.3 %; Mean Corpuscular HGB Conc 35 g/dL (31-36); Mean Corpuscular Hemoglobin 35 pg (27-31); Mean Corpuscular Volume 100 fL (80-94); Mean Platelet Volume 7.4 fL (7.4-10.4); Platelet Count 75 10^3/uL (150-450); Red Blood Count 2.48 10^6 /uL (4.18-5.48); Red Cell Distribution Width 16 % (10-15); White Blood Count 3.5 10^3/uL (3.5-10.8)
[2019-08-16 06:23] LABS: Albumin 3.8 g/dL (3.2-5.2); Albumin/Globulin Ratio 2.7 (1-3); Calcium 9.6 mg/dL (8.6-10.3); EGFR African American 44.2 (>60); EGFR Non-African American 36.5 (>60); Globulin 1.4 g/dL (2-4); Potassium 3.4 mmol/L (3.5-5.0); Total Bilirubin 0.7 mg/dL (0.2-1.0); Total Protein 5.2 g/dL (6.4-8.9)
[2019-08-16] MEDS: Prochlorperazine TAB* 10 MG PO PRN ×2 (09:40→18:10)
[2019-08-16] MEDS ORDERED: Polyethylene Glycol 3350* 17 GM PACKET PO PRN (11:10)
--- NOTE | 2019-08-16 12:14 | PN ---
Progress Note - Progress Note Date of Service: 08/16/19 SOAP: Subjective: [Feeling ok. Some nausea. Urinating well. ] Objective: [ Vital Signs: Temp Pulse Resp BP Pulse Ox 97.9 F 72 19 103/54 100 08/16/19 04:00 08/16/19 04:00 08/16/19 04:00 08/16/19 04:00 08/16/19 04:00 Docusate Sodium (Colace Cap*) 100 mg PO BID [facility] Enoxaparin Sodium (Lovenox(*)) 30 mg SUBCUT Q24H [facility] Last Admin: 08/15/19 15:18 Dose: Not Given Sodium Bicarbonate 100 meq/ (Dextrose) 1,100 mls @ 200 mls/hr IV Q5H [facility] Last Admin: 08/16/19 11:54 Dose: 200 mls/hr Leucovorin Calcium 188 mg/ (Sodium Chloride) 68.8 mls @ 206.4 mls/hr IVPB Q6H [facility] Last Admin: 08/16/19 10:25 Dose: 206.4 mls/hr Polyethylene Glycol/Electrolytes (Miralax*) 17 gm PO DAILY PRN PRN Reason: CONSTIPATION Prochlorperazine (Compazine Tab*) 10 mg PO Q6HR PRN PRN Reason: nausea/upset stomach Last Admin: 08/16/19 09:40 Dose: 10 mg Laboratory Results - last 24 hr 08/15/19 08/15/19 08/15/19 05:20 16:23 21:35 WBC RBC Hgb Hct MCV MCH MCHC RDW Plt Count MPV Neut % (Auto) Lymph % (Auto) Emery % (Auto) Eos % (Auto) Baso % (Auto) Absolute Neuts (auto) Absolute Lymphs (auto) Absolute Monos (auto) Absolute Eos (auto) Absolute Basos (auto) Absolute Nucleated RBC Nucleated RBC % Sodium Potassium Chloride Carbon Dioxide Anion Gap BUN Creatinine Est GFR ( Amer) Est GFR (Non-Af Amer) BUN/Creatinine Ratio Glucose Calcium Total Bilirubin AST ALT Alkaline Phosphatase Total Protein Albumin Globulin Albumin/Globulin Ratio Urine pH 9.0 9.0 Methotrexate 49.10 08/16/19 08/16/19 08/16/19 04:15 05:42 05:42 WBC 3.5 RBC 2.48 L Hgb 8.8 L Hct 25 L MCV 100 H MCH 35 H MCHC 35 RDW 16 H Plt Count 75 L MPV 7.4 Neut % (Auto) 82.4 Lymph % (Auto) 6.3 Emery % (Auto) 10.1 Eos % (Auto) 0.8 Baso % (Auto) 0.4 Absolute Neuts (auto) 2.9 Absolute Lymphs (auto) 0.2 L Absolute Monos (auto) 0.4 Absolute Eos (auto) 0.0 Absolute Basos (auto) 0.0 Absolute Nucleated RBC 0.0 Nucleated RBC % 0.0 Sodium 143 Potassium 3.4 L Chloride 110 Carbon Dioxide 28 Anion Gap 5 BUN 23 Creatinine 1.91 H Est GFR ( Amer) 44.2 Est GFR (Non-Af Amer) 36.5 BUN/Creatinine Ratio 12.0 Glucose 94 Calcium 9.6 Total Bilirubin 0.70 AST 83 H ALT 246 H Alkaline Phosphatase 60 Total Protein 5.2 L Albumin 3.8 Globulin 1.4 L Albumin/Globulin Ratio 2.7 Urine pH 9.0 Methotrexate Exam: Gen: Well appearing, in NAD HEENT: MMM CV: RRR, no m/r/g Resp: CTA, no w/c/r Abd: soft, nonTTP Ext: trace to 1+ RLE ] [Assessment: []59 yo male with 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 He is now ~48 hours post infusion and feeling well overall. MTX level yesterday was elevated, but drawn at 16 hours post infusion. Today's value is pending which will be ~40 hours post infusion. Noted small bump in Cr and transaminases today. Plan: []- cont. bicarb @ 200 mL/hr to maintain urine pH >/=7, if next urine pH >9 will decrease rate to 150 mL/hr - daily mtx. levels couriered to [facility], level pending today - increase leucovorin rescue to 100mg/m2 q 6 hours, cont. until mtx level < 0.1 micromol/L - strict I&Os - prn antiemetics Full Code]
[2019-08-16] MEDS: Enoxaparin(*) 30 MG/0.3 ML SYR SUBCUT SCH (13:13)
--- NOTE | 2019-08-16 17:43 | PN ---
Progress Note - Progress Note Date of Service: 08/16/19 SOAP: Follow-up Methotrexate Level Mtx level 1.67 micromol, called from [facility]. Level drawn @ 0542, therefore 40 hrs post infusion. Normal excretion is 1 micromol @ 48 hrs. Leucovorin adjusted this morning due to concern for delayed exertion, however this represents normal excretion. No change in plan of care care overnight. []
[2019-08-16] MEDS: Docusate CAP* 100 MG PO SCH (20:15)
[2019-08-17] MEDS: SOD BICARB IV SCH ×5 (00:13→19:18)
[2019-08-17] MEDS: [UNRECOGNIZED DRUG - OTHER] IV SCH ×5 (00:13→19:18)
[2019-08-17] MEDS: LEUCOVORIN CALCIUM IVPB SCH ×4 (04:04→22:11)
[2019-08-17] MEDS: NS 0.9% IVPB SCH ×4 (04:04→22:11)
[2019-08-17 05:04] LABS: Albumin 3.5 g/dL (3.2-5.2); Albumin/Globulin Ratio 2.5 (1-3); Calcium 9.4 mg/dL (8.6-10.3); EGFR African American 33.9 (>60); Globulin 1.4 g/dL (2-4); Potassium 3.1 mmol/L (3.5-5.0); Total Bilirubin 0.7 mg/dL (0.2-1.0); Total Protein 4.9 g/dL (6.4-8.9)
[2019-08-17 05:22] LABS: ABS Eosinophils 0.1 10^3/ul (0-0.6); ABS Lymphocytes 0.2 10^3/ul (1.0-4.8); ABS Monocytes 0.1 10^3/ul (0-0.8); ABS Neutrophils 2.7 10^3/ul (1.5-7.7); Hematocrit 24 % (42-52); Hemoglobin 8.3 g/dL (14.0-18.0); Lymphocyte % 7.3 %; Mean Corpuscular HGB Conc 35 g/dL (31-36); Mean Corpuscular Hemoglobin 35 pg (27-31); Mean Corpuscular Volume 101 fL (80-94); Mean Platelet Volume 6.6 fL (7.4-10.4); Platelet Count 70 10^3/uL (150-450); Red Blood Count 2.36 10^6 /uL (4.18-5.48); Red Cell Distribution Width 16 % (10-15); White Blood Count 3.2 10^3/uL (3.5-10.8)
[2019-08-17 09:07] LABS: Magnesium 2.1 mg/dL (1.9-2.7)
[2019-08-17] MEDS: Docusate CAP* 100 MG PO SCH ×2 (10:02→20:32)
[2019-08-17] MEDS: Potassium Chlor TAB* 20 MEQ TAB.ER PO SCH (12:15)
--- NOTE | 2019-08-17 12:19 | PN ---
Progress Note - Progress Note Date of Service: 08/17/19 SOAP: Subjective: [Feeling better today. No nausea. Energy is good. No new concerns.] Objective: [ Vital Signs: Temp Pulse Resp BP Pulse Ox 98.5 F 71 18 118/60 100 08/17/19 08:00 08/17/19 08:00 08/17/19 08:00 08/17/19 08:00 08/17/19 08:00 Docusate Sodium (Colace Cap*) 100 mg PO BID [facility] Last Admin: 08/17/19 10:02 Dose: 100 mg Enoxaparin Sodium (Lovenox(*)) 30 mg SUBCUT Q24H [facility] Last Admin: 08/16/19 13:13 Dose: Not Given Sodium Bicarbonate 100 meq/ (Dextrose) 1,100 mls @ 200 mls/hr IV Q5H [facility] Last Admin: 08/17/19 06:18 Dose: 200 mls/hr Leucovorin Calcium 188 mg/ (Sodium Chloride) 68.8 mls @ 206.4 mls/hr IVPB Q6H [facility] Last Admin: 08/17/19 09:47 Dose: 206.4 mls/hr Polyethylene Glycol/Electrolytes (Miralax*) 17 gm PO DAILY PRN PRN Reason: CONSTIPATION Potassium Chloride (Klor Con Er Tab*) 40 meq PO DAILY [facility] Last Admin: 08/17/19 12:15 Dose: 40 meq Prochlorperazine (Compazine Tab*) 10 mg PO Q6HR PRN PRN Reason: nausea/upset stomach Last Admin: 08/16/19 18:10 Dose: 10 mg Laboratory Results - last 24 hr 08/16/19 08/16/19 08/16/19 05:42 15:01 16:30 WBC RBC Hgb Hct MCV MCH MCHC RDW Plt Count MPV Neut % (Auto) Lymph % (Auto) Russell % (Auto) Eos % (Auto) Baso % (Auto) Absolute Neuts (auto) Absolute Lymphs (auto) Absolute Monos (auto) Absolute Eos (auto) Absolute Basos (auto) Absolute Nucleated RBC Nucleated RBC % Sodium Potassium Chloride Carbon Dioxide Anion Gap BUN Creatinine Est GFR ( Amer) Est GFR (Non-Af Amer) BUN/Creatinine Ratio Glucose Calcium Magnesium Total Bilirubin AST ALT Alkaline Phosphatase Total Protein Albumin Globulin Albumin/Globulin Ratio Urine pH 9.0 9.0 Methotrexate 1.67 08/17/19 08/17/19 08/17/19 04:00 04:35 04:35 WBC 3.2 L RBC 2.36 L Hgb 8.3 L Hct 24 L MCV 101 H MCH 35 H MCHC 35 RDW 16 H Plt Count 70 L MPV 6.6 L Neut % (Auto) 85.8 Lymph % (Auto) 7.3 Russell % (Auto) 4.3 Eos % (Auto) 2.0 Baso % (Auto) 0.6 Absolute Neuts (auto) 2.7 Absolute Lymphs (auto) 0.2 L Absolute Monos (auto) 0.1 Absolute Eos (auto) 0.1 Absolute Basos (auto) 0.0 Absolute Nucleated RBC 0.0 Nucleated RBC % 0.0 Sodium 144 Potassium 3.1 L Chloride 106 Carbon Dioxide 35 H Anion Gap 3 BUN 24 Creatinine 2.40 H Est GFR ( Amer) 33.9 Est GFR (Non-Af Amer) 28.0 BUN/Creatinine Ratio 10.0 Glucose 100 Calcium 9.4 Magnesium 2.1 Total Bilirubin 0.70 AST 36 ALT 155 H Alkaline Phosphatase 58 Total Protein 4.9 L Albumin 3.5 Globulin 1.4 L Albumin/Globulin Ratio 2.5 Urine pH 9.0 Methotrexate Exam: Gen: Well appearing, in NAD HEENT: MMM CV: RRR, no m/r/g Resp: CTA, no w/c/r Abd: soft, nonTTP Ext: trace to 1+ RLE ] [Assessment: []59 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 He is now ~72 hours post infusion and feeling well overall. MTX level yesterday shows good clearance. Noted small bump in Cr with improved transaminases today. Plan: - cont. bicarb @ 200 mL/hr to maintain urine pH >/=7, if next urine pH >9 will decrease rate to 150 mL/hr - daily mtx. levels couriered to [facility], level pending today - increased leucovorin rescue to 100mg/m2 q 6 hours, cont. until mtx level < 0.1 micromol/L - strict I&Os - prn antiemetics Full Code Dispo: dc home when MTX <0.1 (likely tomorrow)
[2019-08-17] MEDS: Enoxaparin(*) 30 MG/0.3 ML SYR SUBCUT SCH (13:41)
[2019-08-18] MEDS: [UNRECOGNIZED DRUG - OTHER] IV SCH ×5 (01:00→21:12)
[2019-08-18] MEDS: SOD BICARB IV SCH ×5 (01:00→21:12)
[2019-08-18] MEDS: NS 0.9% IVPB SCH ×4 (04:26→22:32)
[2019-08-18] MEDS: LEUCOVORIN CALCIUM IVPB SCH ×4 (04:26→22:32)
[2019-08-18 05:16] LABS: ABS Eosinophils 0.1 10^3/ul (0-0.6); ABS Lymphocytes 0.3 10^3/ul (1.0-4.8); ABS Monocytes 0.1 10^3/ul (0-0.8); ABS Neutrophils 1.8 10^3/ul (1.5-7.7); Eosinophil % 4.4 %; Hematocrit 23 % (42-52); Lymphocyte % 11.5 %; Mean Corpuscular HGB Conc 36 g/dL (31-36); Mean Corpuscular Hemoglobin 36 pg (27-31); Mean Corpuscular Volume 100 fL (80-94); Mean Platelet Volume 6.7 fL (7.4-10.4); Nucleated Red Blood Cells % 0.2; Platelet Count 65 10^3/uL (150-450); Red Blood Count 2.24 10^6 /uL (4.18-5.48); Red Cell Distribution Width 15 % (10-15); White Blood Count 2.3 10^3/uL (3.5-10.8)
[2019-08-18 05:32] LABS: Albumin 3.4 g/dL (3.2-5.2); Albumin/Globulin Ratio 2.4 (1-3); BUN/Creatinine Ratio 12.1 (8-20); Calcium 9.3 mg/dL (8.6-10.3); EGFR African American 30.3 (>60); Globulin 1.4 g/dL (2-4); Potassium 3.3 mmol/L (3.5-5.0); Total Bilirubin 0.7 mg/dL (0.2-1.0); Total Protein 4.8 g/dL (6.4-8.9)
--- NOTE | 2019-08-18 09:08 | PN ---
Progress Note - Progress Note Date of Service: 08/18/19 SOAP: Subjective: frustrated with being here. constipated. no headaches. Objective: Vital Signs Temp Pulse Resp BP Pulse Ox 97.4 F 70 16 129/72 100 08/18/19 07:00 08/18/19 07:00 08/18/19 07:00 08/18/19 07:00 08/18/19 07:00 sitting up in nad perr eomi op moist cta bl s1 s2 nl soft nt +Bs no le edema A+O x 3 nonfocal neurological exam Laboratory Results - last 24 hr 08/16/19 08/17/19 08/17/19 05:42 04:35 04:35 WBC RBC Hgb Hct MCV MCH MCHC RDW Plt Count MPV Neut % (Auto) Lymph % (Auto) Cobb % (Auto) Eos % (Auto) Baso % (Auto) Absolute Neuts (auto) Absolute Lymphs (auto) Absolute Monos (auto) Absolute Eos (auto) Absolute Basos (auto) Absolute Nucleated RBC Nucleated RBC % Sodium Potassium Chloride Carbon Dioxide Anion Gap BUN Creatinine Est GFR ( Amer) Est GFR (Non-Af Amer) BUN/Creatinine Ratio Glucose Calcium Magnesium 2.1 Total Bilirubin AST ALT Alkaline Phosphatase Total Protein Albumin Globulin Albumin/Globulin Ratio Urine pH Methotrexate 1.67 0.24 08/17/19 08/17/19 08/17/19 12:00 16:00 22:59 WBC RBC Hgb Hct MCV MCH MCHC RDW Plt Count MPV Neut % (Auto) Lymph % (Auto) Cobb % (Auto) Eos % (Auto) Baso % (Auto) Absolute Neuts (auto) Absolute Lymphs (auto) Absolute Monos (auto) Absolute Eos (auto) Absolute Basos (auto) Absolute Nucleated RBC Nucleated RBC % Sodium Potassium Chloride Carbon Dioxide Anion Gap BUN Creatinine Est GFR ( Amer) Est GFR (Non-Af Amer) BUN/Creatinine Ratio Glucose Calcium Magnesium Total Bilirubin AST ALT Alkaline Phosphatase Total Protein Albumin Globulin Albumin/Globulin Ratio Urine pH 9.0 9.0 9.0 Methotrexate 08/18/19 08/18/19 08/18/19 04:00 05:00 05:00 WBC 2.3 L RBC 2.24 L Hgb 8.0 L Hct 23 L MCV 100 H MCH 36 H MCHC 36 RDW 15 Plt Count 65 L MPV 6.7 L Neut % (Auto) 78.9 Lymph % (Auto) 11.5 Cobb % (Auto) 4.5 Eos % (Auto) 4.4 Baso % (Auto) 0.7 Absolute Neuts (auto) 1.8 Absolute Lymphs (auto) 0.3 L Absolute Monos (auto) 0.1 Absolute Eos (auto) 0.1 Absolute Basos (auto) 0.0 Absolute Nucleated RBC 0.0 Nucleated RBC % 0.2 Sodium 142 Potassium 3.3 L Chloride 105 Carbon Dioxide 34 H Anion Gap 3 BUN 32 H Creatinine 2.65 H Est GFR ( Amer) 30.3 Est GFR (Non-Af Amer) 25.0 BUN/Creatinine Ratio 12.1 Glucose 93 Calcium 9.3 Magnesium Total Bilirubin 0.70 AST 23 ALT 109 H Alkaline Phosphatase 58 Total Protein 4.8 L Albumin 3.4 Globulin 1.4 L Albumin/Globulin Ratio 2.4 Urine pH 9.0 Methotrexate Docusate Sodium (Colace Cap*) 100 mg PO BID [facility] Last Admin: 08/17/19 20:32 Dose: 100 mg Sodium Bicarbonate 100 meq/ (Dextrose) 1,100 mls @ 200 mls/hr IV Q5H [facility] Last Admin: 08/18/19 07:15 Dose: 200 mls/hr Leucovorin Calcium 188 mg/ (Sodium Chloride) 68.8 mls @ 206.4 mls/hr IVPB Q6H [facility] Last Admin: 08/18/19 04:26 Dose: 206.4 mls/hr Polyethylene Glycol/Electrolytes (Miralax*) 17 gm PO DAILY PRN PRN Reason: CONSTIPATION Potassium Chloride (Klor Con Er Tab*) 40 meq PO DAILY [facility] Last Admin: 08/17/19 12:15 Dose: 40 meq Prochlorperazine (Compazine Tab*) 10 mg PO Q6HR PRN PRN Reason: nausea/upset stomach Last Admin: 08/16/19 18:10 Dose: 10 mg Assessment: 59 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 Doing well overall though creatinine increased today Plan: - cont. bicarb @ 200 mL/hr to maintain urine pH >/=7 - daily mtx. levels couriered to [facility], level pending today - increased leucovorin rescue to 100mg/m2 q 6 hours, cont. until mtx level < 0.1 micromol/L - strict I&Os - prn antiemetics ARF: likely MTX toxicity discussed will need to stay inpatient until stable to decreasing then can hydrate aggressively as outpatient constipation: use prn miralax as ordered Full Code
[2019-08-18] MEDS: Potassium Chlor TAB* 20 MEQ TAB.ER PO SCH (09:41)
[2019-08-18] MEDS: Docusate CAP* 100 MG PO SCH ×2 (09:42→20:15)
[2019-08-18] MEDS ORDERED: Polyethylene Glycol 3350* 17 GM PACKET PO PRN (20:00)
[2019-08-19] MEDS: SOD BICARB IV SCH ×2 (03:34→13:01)
[2019-08-19] MEDS: [UNRECOGNIZED DRUG - OTHER] IV SCH ×2 (03:34→13:01)
[2019-08-19] MEDS: NS 0.9% IVPB SCH ×2 (04:25→13:02)
[2019-08-19] MEDS: LEUCOVORIN CALCIUM IVPB SCH ×2 (04:25→13:02)
[2019-08-19 05:19] LABS: ABS Eosinophils 0.1 10^3/ul (0-0.6); ABS Lymphocytes 0.3 10^3/ul (1.0-4.8); ABS Monocytes 0.2 10^3/ul (0-0.8); ABS Neutrophils 1.9 10^3/ul (1.5-7.7); Eosinophil % 3.4 %; Hematocrit 22 % (42-52); Hemoglobin 7.7 g/dL (14.0-18.0); Lymphocyte % 11.6 %; Mean Corpuscular HGB Conc 35 g/dL (31-36); Mean Corpuscular Hemoglobin 35 pg (27-31); Mean Corpuscular Volume 100 fL (80-94); Mean Platelet Volume 6.9 fL (7.4-10.4); Platelet Count 65 10^3/uL (150-450); Red Blood Count 2.21 10^6 /uL (4.18-5.48); Red Cell Distribution Width 15 % (10-15); White Blood Count 2.4 10^3/uL (3.5-10.8)
[2019-08-19 05:23] LABS: Albumin 3.5 g/dL (3.2-5.2); Albumin/Globulin Ratio 2.5 (1-3); BUN/Creatinine Ratio 10.8 (8-20); Calcium 9.3 mg/dL (8.6-10.3); EGFR African American 32.2 (>60); EGFR Non-African American 26.6 (>60); Globulin 1.4 g/dL (2-4); Potassium 3.6 mmol/L (3.5-5.0); Total Bilirubin 0.5 mg/dL (0.2-1.0); Total Protein 4.9 g/dL (6.4-8.9)
--- NOTE | 2019-08-19 07:38 | DS ---
- Discharge Summary ADMIT DATE: 08/13/2019 DISCHARGE DATE: 08/19/2019 DISCHARGE DIAGNOSIS: 1. diffuse large b cell lymphoma of the [employer]ENDANT sp high dose methotrexate chemotherapy 2. acute renal failure related to MTX, improving 3. chronic renal insufficiency 4. pancytopenia: disease and chemotherapy related DISCHARGE CONDITION: stable ACTIVITY: as tolerate DIET: regular DISCHARGE MEDICATIONS: Home Medications Medication Instructions Recorded Confirmed Type Docusate CAP* [Colace Cap*] 100 mg PO DAILY 08/13/19 08/13/19 History Senna 1 dose PO DAILY 08/13/19 08/13/19 History Docusate CAP* [Colace Cap*] 100 mg PO BID cap 08/19/19 Rx Lactulose* 30 ml PO QID PRN #500 udc 08/19/19 Rx Polyethylene Glycol 3350* 17 gm PO BID PRN packet 08/19/19 Rx [Miralax*] FOLLOW UP: Tuesday at 1 pm for labs and hydration HOSPITAL COURSE: See full admit H+P, briefly relapsed DLBCL of the [employer] sp 2 cycles of HDMTX, admitted for cycle 3 with the addition of Rituximab this cycle. He did quite well this cycle with appropriate clearance of his MTX. He did have a bump in his creatinine requiring one extra day of hydration. His creatinine is falling and so he will be discharged home with plan to come to my office as an outpatient tomorrow for lab check and hydration. he understands the rationale for this. Additionally, he had more constipation this cycle. We discussed adding lactulose, which he has taken before. I will give him one dose prior to discharge and a script was sent in. We will discuss tomorrow if no BM further interventions. >30 mins spent, >50 % in face to face counseling.
[2019-08-19 07:45] VITALS: BP 122/57
[2019-08-19] MEDS: Potassium Chlor TAB* 20 MEQ TAB.ER PO SCH (08:19)
[2019-08-19] MEDS: Docusate CAP* 100 MG PO SCH (08:20)
== END 2019-08-19 12:15 | disposition home or self-care (01) | DRG 846 ==
LOC: MED 12:46
PROVIDERS: ADMIT Internal Medicine Hematology & Oncology; ATTEND Internal Medicine Hematology & Oncology
DX: Z51.11 Encounter for antineoplastic chemotherapy (principal); D61.810 Antineoplastic chemotherapy induced pancytopenia; C83.31 Diffuse large B-cell lymphoma, lymph nodes of head, face, and neck; N17.9 Acute kidney failure, unspecified; T45.1X5A Adverse effect of antineoplastic and immunosuppressive drugs, initial encounter; Y92.239 Unspecified place in hospital as the place of occurrence of the external cause; N18.9 Chronic kidney disease, unspecified; K59.00 Constipation, unspecified; R11.0 Nausea; Z91.041 Radiographic dye allergy status
CPT/HCPCS: 36415; 80053; 80299; 83735; 83986; 85025; 96375; 96413; 96415; 99215; 99222; 99232; 99233; 99239; A9270-GY; G0463; J0185; J0640; J1100; J1200; J1642; J1650; J2469; J7060; J9260; J9312; Q0164

== ENCOUNTER 2019-09-01 17:07 | Emergency (ER) | payer MEDICARE, OTHER ==
[2019-09-01] MEDS ORDERED: NS 0.9% 1000 ML** 1,000 ML IV ONE (18:40)
--- NOTE | 2019-09-01 18:46 | ED ---
GI/ HPI - HPI Summary HPI Summary: Patient is a 59 y/o M w/ non-hodgkin's large b-cell lymphoma who presents to [facility] with complaints of constipation for 15 days. Patient is followed by Dr. Klein, last chemotherapy was three weeks ago. He states that he is taking methotrexate, rituximab. Patient states that he has been taking multiple laxative medications with no relief in Sx. 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 Patient notes that he has decreased PO intake as well. However, he denies abdominal pain, N/V, and states that he is passing gas. On triage, pain is denied, nothing is noted to aggravate/alleviate Sx. Home medications and allergies are reviewed. - History of Current Complaint Chief Complaint: EDConstipation Time Seen by Provider: 09/01/19 18:27 Stated Complaint: "CONSTIPATION PER PT" Hx Obtained From: Patient Onset/Duration: Started Days Ago, Still Present Timing: Constant, Lasting Days Current Severity: None - pain denied Pain Intensity: 0 Associated Signs and Symptoms: Positive: Constipation, Other: - positive - decreased PO intake. Negative: Nausea, Vomiting, Abdominal Pain Aggravating Factor(s): Nothing Alleviating Factor(s): Nothing - Additional Pertinent History Primary Care Physician: SHAREE - Allergy/Home Medications Allergies/Adverse Reactions: Allergies Allergy/AdvReac Type Severity Reaction Status Date / Time No Known Allergies Allergy Verified 09/01/19 17:17 PMH/Surg Hx/FS Hx/Imm Hx Endocrine/Hematology History: Reports: Hx Anemia - R/O TO CHEMO, Other Endocrine /Hematological Disorders Denies: Hx Diabetes, Hx Unexplained Bleeding Cardiovascular History: Denies: Hx Aneurysm, Hx Angina, Hx Angioplasty, Hx Auto Implanted Cardiovert Defib, Hx Cardiac Arrest, Hx Cardiomegaly, Hx Congenital Heart Disease, Hx Congestive Heart Failure, Hx Coronary Artery Disease, Hx Deep Vein Thrombosis, Hx Hypercholesterolemia, Hx Hypotension, Hx Hypertension, Hx Pacemaker/ICD, Hx Peripheral Vascular Disease, Hx Rheumatic Fever, Hx Syncope, Hx Valvular Heart Disease, Other Cardiovascular Problems/Disorders Respiratory History: Denies: Hx Asthma, Hx Bronchopulmonary Dysplasia, Hx Chronic Bronchitis, Hx Chronic Obstructive Pulmonary Disease (COPD), Hx Cystic Fibrosis, Hx Lung Cancer , Hx Pleural Effusion, Hx Pneumonia, Hx Pulmonary Edema, Hx Pulmonary Embolism, Hx Seasonal Allergies, Hx Sleep Apnea, Other Respiratory Problems/Disorders History: Denies: Hx Renal Disease Sensory History: Reports: Hx Contacts or Glasses Denies: Hx Cataracts, Hx Eye Injury, Hx Eye Prosthesis, Hx Glaucoma, Hx Macular Degeneration, Hx Vision Problem, Hx Deafness, Hx Hearing Aid, Hx Hearing Problem, Other Sensory Impairments Opthamlomology History: Reports: Hx Contacts or Glasses Denies: Hx Cataracts, Hx Eye Injury, Hx Eye Prosthesis, Hx Glaucoma, Hx Macular Degeneration, Hx Vision Problem, Other Sensory Impairments Neurological History: Denies: Hx Dementia, Hx Developmental Delay, Hx Headaches, Hx Migraine, Hx Seizures, Hx Spinal Cord Injury, Hx Transient Ischemic Attacks (TIA), Other Neuro Impairments/Disorders Psychiatric History: Denies: Hx Panic Disorder - Cancer History Cancer Type, Location and Year: NONHODGKINS LYMPHOMA AND HODGKINS LYMPHOMA Hx Chemotherapy: Yes - Surgical History Surgery Procedure, Year, and Place: PORT PLACEMENT. appendix. hernia Infectious Disease History: No Infectious Disease History: Denies: Hx Clostridium Difficile, Hx Hepatitis, Hx Human Immunodeficiency Virus (HIV), Hx Shingles, Hx Tuberculosis, Traveled Outside the [place] in Last 30 Days - Family History Known Family History: Positive: Unknown - adopted - Social History Alcohol Use: None Substance Use Type: Reports: None Smoking Status (MU): Never Smoked Tobacco Have You Smoked in the Last Year: No Review of Systems Negative: Fever - on vitals, temp is 98.6 F Gastrointestinal: Other - positive - constipation, decreased PO intake Negative: Abdominal Pain, Vomiting, Nausea All Other Systems Reviewed And Are Negative: Yes Physical Exam - Summary Physical Exam Summary: VITAL SIGNS: Reviewed. GENERAL: Patient is a well-developed and thin-appearing male who is lying comfortable in the stretcher. Patient is not in any acute respiratory distress. HEAD AND FACE: No signs of trauma. No ecchymosis, hematomas or skull depressions. No sinus tenderness. EYES: PERRLA, EOMI x 2, No injected conjunctiva, no nystagmus. EARS: Hearing grossly intact. Ear canals and tympanic membranes are within normal limits. MOUTH: Oropharynx within normal limits. NECK: Supple, trachea is midline, no adenopathy, no JVD, no carotid bruit, no c- spine tenderness, neck with full ROM. CHEST: Symmetric, no tenderness at palpation. LUNGS: Clear to auscultation bilaterally. No wheezing or crackles. CVS: Regular rate and rhythm, S1 and S2 present, no murmurs or gallops appreciated. ABDOMEN: Soft, non-tender. No signs of distention. No rebound, no guarding, and no masses palpated. Bowel sounds are normal. EXTREMITIES: FROM in all major joints, no edema, no cyanosis or clubbing. NEURO: Alert and oriented x 3. No acute neurological deficits. Speech is normal and follows commands. SKIN: Dry and warm. Triage Information Reviewed: Yes Vital Signs On Initial Exam: Initial Vitals Temp Pulse Resp BP Pulse Ox 98.6 F 87 16 123/96 100 09/01/19 17:14 09/01/19 17:14 09/01/19 17:14 09/01/19 17:14 09/01/19 17:14 Vital Signs Reviewed: Yes Procedures - Sedation Patient Received Moderate/Deep Sedation with Procedure: No Diagnostics - Vital Signs Vital Signs Temp Pulse Resp BP Pulse Ox 09/01/19 17:14 98.6 F 87 16 123/96 100 - Laboratory Result Diagrams: 09/01/19 20:19 09/01/19 20:19 Lab Statement: Any lab studies that have been ordered have been reviewed, and results considered in the medical decision making process. - Radiology abdomen x-ray Radiology Interpretation Completed By: ED Physician Summary of Radiographic Findings: Abdomen x-ray shows normal bowel pattern with increased stool, pending official report. Re-Evaluation - Re-Evaluation First Eval Re-Evaluation Time: 20:05 Change: Worse Comment: Patient reports that he is now having intermittent abdominal pain. CT ABD/PEL to be done. GIGU Course/Dx - Course Assessment/Plan: Patient is a 59-year-old male who presents to the emergency department with a chief complaint of having constipation. He reports that he has not been able to have a normal bowel movement for the last 15 days. Patient has a history of non-Hodgkins B cell lymphoma. Patient is in chemotherapy. Bloodwork results without any significant abnormality except for WBCs of 2.1, RBCs is 2.42, hemoglobin 8.6, hematocrit 24, absolute neutrophils of 1.3. Potassium is 3.3. Creatinine is 2.48, and protein of 5.6. Urinalysis is negative for UTI. Abdomen x-ray shows normal bowel pattern with increased stool. Patient reports that he is having this intermittent pain in the abdomen. Patient therefore sent to the CT with by mouth contrast. At this point the patient is drinking the contrast. The patient will be signed out to Dr. Cleaning to follow with the CT results and further disposition of this patient - Diagnoses Provider Diagnoses: Abdominal pain, Constipation Discharge ED - Sign-Out/Discharge Documenting (check all that apply): Sign-Out Patient Signing out patient TO: Samia Cleaning - Discharge Plan Condition: Stable Disposition: HOME Patient Education Materials: Constipation (ED), Abdominal Pain (ED) Referrals: Isis Klein MD [Primary Care Provider] - 3 Days Additional Instructions: Please take GoLYTELY for your symptoms. Please follow up with your primary care physician within three days. Please return to ED for any new or worsening symptoms. - Billing Disposition and Condition Condition: STABLE Disposition: Home - Attestation Statements Document Initiated by Scribe: Yes Documenting Scribe: LEE ANDRADE Provider For Whom Melodie is Documenting (Include Credential): MARLIN DUNBAR MD Scribe Attestation: LEE Samuel, scribed for MARLIN DUNBAR MD on 09/02/19 at 1617. Scribe Documentation Reviewed: Yes Provider Attestation: The documentation as recorded by the LEE chou accurately reflects the service I personally performed and the decisions made by MARLIN andrew MD Status of Scribe Document: Viewed
[2019-09-01 20:29] LABS: ABS Eosinophils 0.1 10^3/ul (0-0.6); ABS Lymphocytes 0.4 10^3/ul (1.0-4.8); ABS Monocytes 0.3 10^3/ul (0-0.8); ABS Neutrophils 1.3 10^3/ul (1.5-7.7); Eosinophil % 3.9 %; Hematocrit 24 % (42-52); Hemoglobin 8.6 g/dL (14.0-18.0); Lymphocyte % 17.8 %; Mean Corpuscular HGB Conc 36 g/dL (31-36); Mean Corpuscular Hemoglobin 36 pg (27-31); Mean Corpuscular Volume 99 fL (80-94); Mean Platelet Volume 6.9 fL (7.4-10.4); Nucleated Red Blood Cells % 0.1; Platelet Count 88 10^3/uL (150-450); Red Blood Count 2.42 10^6 /uL (4.18-5.48); Red Cell Distribution Width 13 % (10-15); White Blood Count 2.1 10^3/uL (3.5-10.8)
[2019-09-01 20:43] LABS: ALT 22 U/L (7-52); AST 17 U/L (13-39); Albumin/Globulin Ratio 2.5 (1-3); Alkaline Phosphatase 64 U/L (34-104); Anion Gap 10 mmol/L (2-11); BUN/Creatinine Ratio 8.1 (8-20); Blood Urea Nitrogen 20 mg/dL (6-24); C Reactive Protein < 1.00 mg/L (<8.01); CO2 Carbon Dioxide 23 mmol/L (22-32); Calcium 9.2 mg/dL (8.6-10.3); Chloride 109 mmol/L (101-111); EGFR African American 32.7 (>60); Globulin 1.6 g/dL (2-4); Glucose 90 mg/dL (70-100); Potassium 3.3 mmol/L (3.5-5.0); Sodium 142 mmol/L (135-145); Total Protein 5.6 g/dL (6.4-8.9)
[2019-09-01 21:01] LABS: Urine Appearance Clear; Urine Bilirubin Negative (Negative); Urine Blood Negative (Negative); Urine Color Straw; Urine Glucose Negative (Negative); Urine Ketones Trace (Negative); Urine Nitrite Negative (Negative); Urine Protein Negative (Negative); Urine Specific Gravity 1.008 (1.010-1.030); Urine Urobilinogen Negative (Negative)
--- NOTE | 2019-09-01 22:39 | ED ---
Progress - Progress Note Progress Note: The pt is a sign-out from Dr. bAernathy at the 09/01/[address] Abd/Pel and disposition. A CT A/P reveals: IMPRESSION: 1. The previously seen massive abdominal lymphadenopathy or mass is significantly decreased with mild residual mesenteric and retroperitoneal lymphadenopathy in the abdomen at this time, the largest mesenteric lymph node currently measuring 12 mm and the largest periaortic lymph node measuring 17 mm maximum dimension. 2. There is wall thickening in the gastric fundus extending to the gastroesophageal junction which may be due to underdistention but cannot exclude gastritis or gastric neoplasm. The pt will be discharged with PCP follow up. Pt is agreeable with this plan. Re-Evaluation - Re-Evaluation First Eval Re-Evaluation Time: 20:05 Change: Worse Comment: Patient reports that he is now having intermittent abdominal pain. CT ABD/PEL to be done. Second Eval Re-Evaluation Time: 23:03 Comment: I have discussed results with the patient and (Sx) is resolved. Discussed symptoms that warrant immediate return to ED. Course/Dx - Course Course Of Treatment: The pt is a sign-out from Dr. Abernathy at the 09/01/[address] Abd/Pel and disposition. A CT A/P reveals: IMPRESSION : 1. The previously seen massive abdominal lymphadenopathy or mass is. significantly decreased with mild residual mesenteric and retroperitoneal. lymphadenopathy in the abdomen at this time, the largest mesenteric lymph node currently measuring 12 mm and the largest periaortic lymph node measuring 17 mm. maximum dimension. 2. There is wall thickening in the gastric fundus extending to the. gastroesophageal junction which may be due to underdistention but cannot. exclude gastritis or gastric neoplasm. The pt will be discharged with PCP follow up. Pt is agreeable with this plan. - Diagnoses Provider Diagnoses: Abdominal pain, Constipation Discharge ED - Sign-Out/Discharge Documenting (check all that apply): Patient Departure - discharge, Receiving Sign-Out Receiving patient FROM: Jonny Abernathy - Discharge Plan Condition: Stable Disposition: HOME Patient Education Materials: Constipation (ED), Abdominal Pain (ED) Referrals: Isis Klein MD [Primary Care Provider] - 3 Days Additional Instructions: Please take GoLYTELY for your symptoms. Please follow up with your primary care physician within three days. Please return to ED for any new or worsening symptoms. - Billing Disposition and Condition Condition: STABLE Disposition: Home - Attestation Statements Document Initiated by Scribe: Yes Documenting Scribe: Domingo Westfall Provider For Whom Melodie is Documenting (Include Credential): Samia Cleaning MD Scribe Attestation: IDomingo, scribed for Samia Cleaning MD on 09/02/19 at 0329. Scribe Documentation Reviewed: Yes Provider Attestation: The documentation as recorded by the scribeDomingo accurately reflects the service I personally performed and the decisions made by me, Samia Cleaning MD Status of Scribe Document: Viewed
[2019-09-01] MEDS ORDERED: PEG 3000 GI LAVAGE* 1 GALLON PO ONE (23:01)
[2019-09-02 00:20] VITALS: BP 123/64
[2019-09-02] MEDS ORDERED: Docusate CAP* 100 MG PO SCH (09:00)
[2019-09-02] MEDS ORDERED: Senna TAB 8.6 mg* TAB PO SCH (09:00)
== END 2019-09-02 00:19 | disposition home or self-care (01) ==
LOC: ED 17:07
DX: R10.9 Unspecified abdominal pain (principal); C83.30 Diffuse large B-cell lymphoma, unspecified site; K59.00 Constipation, unspecified; C85.90 Non-Hodgkin lymphoma, unspecified, unspecified site; Z92.21 Personal history of antineoplastic chemotherapy
CPT/HCPCS: 36415; 74019; 74176; 80053; 81003; 83605; 83690; 85025; 86140; 96360; 99283; A9270-GY; J1642

== ENCOUNTER 2019-09-10 11:47 | Inpatient (IN) | payer MEDICARE, OTHER ==
[2019-09-10] MEDS ORDERED: Prochlorperazine TAB* 10 MG PO PRN (15:59)
[2019-09-10] MEDS ORDERED: Bisacodyl SUPP* 10 MG SUPP PR PRN (16:00)
[2019-09-10] MEDS: [UNRECOGNIZED DRUG - OTHER] IV SCH ×2 (18:14→23:46)
[2019-09-10] MEDS: SOD BICARB IV SCH ×2 (18:14→23:46)
[2019-09-10] MEDS: Enoxaparin(*) 30 MG/0.3 ML SYR SUBCUT SCH (18:18)
[2019-09-10] MEDS: Polyethylene Glycol 3350* 17 GM PACKET PO SCH (21:14)
[2019-09-10] MEDS: Docusate CAP* 100 MG PO SCH (21:14)
[2019-09-11] MEDS: SOD BICARB IV SCH ×4 (04:59→22:59)
[2019-09-11] MEDS: [UNRECOGNIZED DRUG - OTHER] IV SCH ×4 (04:59→22:59)
[2019-09-11 05:30] LABS: ABS Eosinophils 0.1 10^3/ul (0-0.6); ABS Lymphocytes 0.3 10^3/ul (1.0-4.8); ABS Monocytes 0.3 10^3/ul (0-0.8); Eosinophil % 4.3 %; Hematocrit 24 % (42-52); Hemoglobin 8.7 g/dL (14.0-18.0); Lymphocyte % 17.3 %; Mean Corpuscular HGB Conc 36 g/dL (31-36); Mean Corpuscular Hemoglobin 35 pg (27-31); Mean Corpuscular Volume 99 fL (80-94); Mean Platelet Volume 7.6 fL (7.4-10.4); Nucleated Red Blood Cells % 0.2; Platelet Count 67 10^3/uL (150-450); Red Blood Count 2.46 10^6 /uL (4.18-5.48); Red Cell Distribution Width 12 % (10-15); White Blood Count 1.6 10^3/uL (3.5-10.8)
[2019-09-11 05:47] LABS: Albumin 3.6 g/dL (3.2-5.2); Albumin/Globulin Ratio 2.4 (1-3); BUN/Creatinine Ratio 6.3 (8-20); Calcium 9.2 mg/dL (8.6-10.3); EGFR African American 40.5 (>60); EGFR Non-African American 33.5 (>60); Globulin 1.5 g/dL (2-4); Potassium 3.7 mmol/L (3.5-5.0); Total Bilirubin 0.3 mg/dL (0.2-1.0); Total Protein 5.1 g/dL (6.4-8.9)
[2019-09-11] MEDS ORDERED: APREPITANT IV* 130 MG in PREMIX* 0 ML IVPB ONE (08:30)
[2019-09-11] MEDS ORDERED: Dexamethasone IV* 4 MG/ML 1 ML (4 MG) IV SLOW PU ONE (08:45)
[2019-09-11] MEDS ORDERED: METHOTREXATE IVPB ONE (09:00)
[2019-09-11] MEDS ORDERED: NS 0.9% IVPB ONE (09:00)
[2019-09-11] MEDS: Senna TAB 8.6 mg* TAB PO SCH (09:13)
[2019-09-11] MEDS: Docusate CAP* 100 MG PO SCH ×2 (09:13→22:19)
[2019-09-11] MEDS: Polyethylene Glycol 3350* 17 GM PACKET PO SCH ×2 (09:13→22:19)
--- NOTE | 2019-09-11 12:11 | PN ---
Progress Note - Progress Note Date of Service: 09/11/19 SOAP: Subjective: [Feeling good this morning. No complaints. ] Objective: [ Vital Signs: Temp Pulse Resp BP Pulse Ox 97.2 F 74 18 119/64 100 09/11/19 08:26 09/11/19 08:26 09/11/19 08:26 09/11/19 08:26 09/11/19 08:26 Bisacodyl (Dulcolax Supp*) 10 mg [place] DAILY PRN PRN Reason: CONSTIPATION Docusate Sodium (Colace Cap*) 100 mg PO BID [facility] Last Admin: 09/11/19 09:13 Dose: 100 mg Enoxaparin Sodium (Lovenox(*)) 30 mg SUBCUT Q24H [facility] Last Admin: 09/10/19 18:18 Dose: Not Given Sodium Bicarbonate 100 meq/ (Dextrose) 1,100 mls @ 200 mls/hr IV Q5H [facility] Last Admin: 09/11/19 10:02 Dose: Not Given Methotrexate Sodium 3,600 mg/ (Sodium Chloride) 1,000 mls @ 250 mls/hr IVPB ONCE ONE Stop: 09/11/19 12:59 Last Admin: 09/11/19 11:07 Dose: 250 mls/hr Leucovorin Calcium 35 mg/ (Sodium Chloride) 53.5 mls @ 214 mls/hr IVPB Q6H [facility] Polyethylene Glycol/Electrolytes (Miralax*) 17 gm PO DAILY [facility] Last Admin: 09/11/19 09:13 Dose: Not Given Prochlorperazine (Compazine Tab*) 10 mg PO Q6HR PRN PRN Reason: NAUSEA Senna (Senokot 8.6 Mg Tab*) 3 tab PO DAILY [facility] Last Admin: 09/11/19 09:13 Dose: 3 tab Laboratory Results - last 24 hr 09/10/19 09/11/19 09/11/19 22:52 04:55 04:55 WBC 1.6 L RBC 2.46 L Hgb 8.7 L Hct 24 L MCV 99 H MCH 35 H MCHC 36 RDW 12 Plt Count 67 L MPV 7.6 Neut % (Auto) 60.2 Lymph % (Auto) 17.3 Ford % (Auto) 17.5 Eos % (Auto) 4.3 Baso % (Auto) 0.7 Absolute Neuts (auto) 1.0 L Absolute Lymphs (auto) 0.3 L Absolute Monos (auto) 0.3 Absolute Eos (auto) 0.1 Absolute Basos (auto) 0.0 Absolute Nucleated RBC 0.0 Nucleated RBC % 0.2 Hem Pathologist Commnt Sodium Potassium Chloride Carbon Dioxide Anion Gap BUN Creatinine Est GFR ( Amer) Est GFR (Non-Af Amer) BUN/Creatinine Ratio Glucose Calcium Total Bilirubin AST ALT Alkaline Phosphatase Total Protein Albumin Globulin Albumin/Globulin Ratio Urine pH 8.0 9.0 09/11/19 09/11/19 04:55 11:21 WBC RBC Hgb Hct MCV MCH MCHC RDW Plt Count MPV Neut % (Auto) Lymph % (Auto) Ford % (Auto) Eos % (Auto) Baso % (Auto) Absolute Neuts (auto) Absolute Lymphs (auto) Absolute Monos (auto) Absolute Eos (auto) Absolute Basos (auto) Absolute Nucleated RBC Nucleated RBC % Hem Pathologist Commnt Sodium 141 Potassium 3.7 Chloride 107 Carbon Dioxide 30 Anion Gap 4 BUN 13 Creatinine 2.06 H Est GFR ( Amer) 40.5 Est GFR (Non-Af Amer) 33.5 BUN/Creatinine Ratio 6.3 L Glucose 104 H Calcium 9.2 Total Bilirubin 0.30 AST 14 ALT 12 Alkaline Phosphatase 52 Total Protein 5.1 L Albumin 3.6 Globulin 1.5 L Albumin/Globulin Ratio 2.4 Urine pH 9.0 Exam: Gen: well appearing, in NAD HEENT: MMM CV: RRR, no m/r/g Resp: CTA, no w/c/r Abd: soft nonTTP Ext: no edema ] Assessment: [58 yo M w PMH of HD and DLBCL 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 C4 was delayed for renal toxicity and constipation. It does not seem likely that the MTX or rituximab caused the constipation, but could have been a complication of aloxi. Admitted with further reduction of methotrexate (renally adjusted) and holding any potentially constipating medications. 2. Cont C4 HDMTX + rituximab - rituximab 375 mg/m2 D1 - sodium bicarb in D5W at 200 ml/h - start MTX when urine pH is >/= 7 (day 2) - give MTX 2g/m2 IV - start leucovorin 35 mg/m2 IV q 6 hrs starting 24 hours after the start of MTX and to continue until MTX level <0.1 mmol/L - monitor MTX level daily starting D3 - cont to monitor urine pH q 6 hrs, to maintain at pH >/= 7 2. Constipation management - dietary consult - allow for 45 min off of IV pump and access to outside - 3 senna and 1 colace q am, senna tea/miralax q pm (continuation of home regimen) - dulcolax suppository prn - goal for daily BM Dispo: dc home with MTX <0.1 mmol/L]
[2019-09-11] MEDS: Enoxaparin(*) 30 MG/0.3 ML SYR SUBCUT SCH (16:08)
[2019-09-12] MEDS: [UNRECOGNIZED DRUG - OTHER] IV SCH ×6 (03:51→19:32)
[2019-09-12] MEDS: SOD BICARB IV SCH ×6 (03:51→19:32)
[2019-09-12 04:20] LABS: ABS Lymphocytes 0.1 10^3/ul (1.0-4.8); ABS Monocytes 0.4 10^3/ul (0-0.8); ABS Neutrophils 6.3 10^3/ul (1.5-7.7); Hematocrit 25 % (42-52); Hemoglobin 9.1 g/dL (14.0-18.0); Lymphocyte % 1.7 %; Mean Corpuscular HGB Conc 37 g/dL (31-36); Mean Corpuscular Hemoglobin 36 pg (27-31); Mean Corpuscular Volume 98 fL (80-94); Mean Platelet Volume 7.8 fL (7.4-10.4); Platelet Count 71 10^3/uL (150-450); Red Blood Count 2.54 10^6 /uL (4.18-5.48); Red Cell Distribution Width 13 % (10-15); White Blood Count 6.8 10^3/uL (3.5-10.8)
[2019-09-12 04:32] LABS: Albumin 3.7 g/dL (3.2-5.2); Albumin/Globulin Ratio 2.2 (1-3); BUN/Creatinine Ratio 10.1 (8-20); Calcium 9.4 mg/dL (8.6-10.3); EGFR African American 44.7 (>60); EGFR Non-African American 36.9 (>60); Globulin 1.7 g/dL (2-4); Potassium 3.7 mmol/L (3.5-5.0); Total Bilirubin 0.6 mg/dL (0.2-1.0); Total Protein 5.4 g/dL (6.4-8.9)
[2019-09-12] MEDS ORDERED: LEUCOVORIN CALCIUM IVPB SCH (09:00)
[2019-09-12] MEDS ORDERED: NS 0.9% IVPB SCH (09:00)
[2019-09-12] MEDS: Senna TAB 8.6 mg* TAB PO SCH (09:01)
[2019-09-12] MEDS: Docusate CAP* 100 MG PO SCH ×2 (09:02→21:49)
[2019-09-12] MEDS: NS 0.9% IVPB SCH ×3 (11:04→23:15)
[2019-09-12] MEDS: LEUCOVORIN CALCIUM IVPB SCH ×3 (11:04→23:15)
--- NOTE | 2019-09-12 11:38 | PN ---
Progress Note - Progress Note Date of Service: 09/12/19 SOAP: Subjective: [] Objective: [] Assessment: [] Plan: []
--- NOTE | 2019-09-12 11:42 | PN ---
Progress Note - Progress Note Date of Service: 09/12/19 SOAP: Subjective: feels good. no nausea, moving bowels, emotionally doing quite well with ability to walk outside every day Objective: Vital Signs Temp Pulse Resp BP Pulse Ox 98.3 F 83 20 128/54 100 09/12/19 11:06 09/12/19 11:06 09/12/19 11:06 09/12/19 11:06 09/12/19 11:06 sitting up in nad perr eomi opmoist cta bl [id number] soft nt +Bs no le edema port clean nonfocal neuro exam Laboratory Results - last 24 hr 09/11/19 09/11/19 09/11/19 11:21 16:15 16:15 WBC RBC Hgb Hct MCV MCH MCHC RDW Plt Count MPV Neut % (Auto) Lymph % (Auto) Mclean % (Auto) Eos % (Auto) Baso % (Auto) Absolute Neuts (auto) Absolute Lymphs (auto) Absolute Monos (auto) Absolute Eos (auto) Absolute Basos (auto) Absolute Nucleated RBC Nucleated RBC % Sodium Potassium Chloride Carbon Dioxide Anion Gap BUN Creatinine Est GFR ( Amer) Est GFR (Non-Af Amer) BUN/Creatinine Ratio Glucose Calcium Total Bilirubin AST ALT Alkaline Phosphatase Total Protein Albumin Globulin Albumin/Globulin Ratio Urine pH 9.0 8.0 8.0 09/11/19 09/12/19 09/12/19 21:50 04:00 04:00 WBC 6.8 RBC 2.54 L Hgb 9.1 L Hct 25 L MCV 98 H MCH 36 H MCHC 37 H RDW 13 Plt Count 71 L MPV 7.8 Neut % (Auto) 91.6 Lymph % (Auto) 1.7 Mclean % (Auto) 6.6 Eos % (Auto) 0.0 Baso % (Auto) 0.1 Absolute Neuts (auto) 6.3 Absolute Lymphs (auto) 0.1 L Absolute Monos (auto) 0.4 Absolute Eos (auto) 0.0 Absolute Basos (auto) 0.0 Absolute Nucleated RBC 0.0 Nucleated RBC % 0.0 Sodium Potassium Chloride Carbon Dioxide Anion Gap BUN Creatinine Est GFR ( Amer) Est GFR (Non-Af Amer) BUN/Creatinine Ratio Glucose Calcium Total Bilirubin AST ALT Alkaline Phosphatase Total Protein Albumin Globulin Albumin/Globulin Ratio Urine pH 9.0 9.0 09/12/19 04:00 WBC RBC Hgb Hct MCV MCH MCHC RDW Plt Count MPV Neut % (Auto) Lymph % (Auto) Mclean % (Auto) Eos % (Auto) Baso % (Auto) Absolute Neuts (auto) Absolute Lymphs (auto) Absolute Monos (auto) Absolute Eos (auto) Absolute Basos (auto) Absolute Nucleated RBC Nucleated RBC % Sodium 138 Potassium 3.7 Chloride 106 Carbon Dioxide 28 Anion Gap 4 BUN 19 Creatinine 1.89 H Est GFR ( Amer) 44.7 Est GFR (Non-Af Amer) 36.9 BUN/Creatinine Ratio 10.1 Glucose 139 H Calcium 9.4 Total Bilirubin 0.60 AST 13 ALT 13 Alkaline Phosphatase 52 Total Protein 5.4 L Albumin 3.7 Globulin 1.7 L Albumin/Globulin Ratio 2.2 Urine pH Assessment: 58 yo M w PMH of HD and 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 Plan to go to [facility] next for MRI, LP and visit. 1. Cont C4 HDMTX + rituximab - rituximab 375 mg/m2 D1 - sodium bicarb in D5W at 200 ml/h - sp MTX 2g/m2 IV 09/11 11am-3pm - cont leucovorin 35 mg/m2 IV q 6 hrs starting 24 hours after the start of MTX and to continue until MTX level <0.1 mmol/L - monitor MTX level daily starting D3 - cont to monitor urine pH q 6 hrs, to maintain at pH >/= 7 2. Constipation management - dietary consult - allow for 45 min off of IV pump and access to outside - 3 senna and 1 colace q am, senna tea/miralax q pm (continuation of home regimen) - dulcolax suppository prn - goal for daily BM Dispo: dc home with MTX <0.1 mmol/L]
[2019-09-12] MEDS: Enoxaparin(*) 30 MG/0.3 ML SYR SUBCUT SCH (18:19)
[2019-09-12] MEDS: Polyethylene Glycol 3350* 17 GM PACKET PO SCH (21:49)
[2019-09-13] MEDS: [UNRECOGNIZED DRUG - OTHER] IV SCH ×6 (01:15→22:09)
[2019-09-13] MEDS: SOD BICARB IV SCH ×6 (01:15→22:09)
[2019-09-13] MEDS: LEUCOVORIN CALCIUM IVPB SCH ×4 (05:16→23:23)
[2019-09-13] MEDS: NS 0.9% IVPB SCH ×4 (05:16→23:23)
[2019-09-13 06:37] LABS: ABS Lymphocytes 0.3 10^3/ul (1.0-4.8); ABS Monocytes 0.3 10^3/ul (0-0.8); ABS Neutrophils 2.2 10^3/ul (1.5-7.7); Eosinophil % 0.8 %; Hematocrit 25 % (42-52); Lymphocyte % 11.9 %; Mean Corpuscular HGB Conc 36 g/dL (31-36); Mean Corpuscular Hemoglobin 36 pg (27-31); Mean Corpuscular Volume 99 fL (80-94); Mean Platelet Volume 7.5 fL (7.4-10.4); Nucleated Red Blood Cells % 0.1; Platelet Count 60 10^3/uL (150-450); Red Blood Count 2.51 10^6 /uL (4.18-5.48); Red Cell Distribution Width 13 % (10-15); White Blood Count 2.8 10^3/uL (3.5-10.8)
[2019-09-13 06:54] LABS: Albumin 3.5 g/dL (3.2-5.2); Albumin/Globulin Ratio 2.3 (1-3); BUN/Creatinine Ratio 7.8 (8-20); Calcium 9.6 mg/dL (8.6-10.3); EGFR African American 47.3 (>60); EGFR Non-African American 39.1 (>60); Globulin 1.5 g/dL (2-4); Potassium 3.5 mmol/L (3.5-5.0); Total Bilirubin 0.4 mg/dL (0.2-1.0)
[2019-09-13] MEDS: Senna TAB 8.6 mg* TAB PO SCH (07:43)
[2019-09-13] MEDS: Docusate CAP* 100 MG PO SCH ×2 (07:43→20:51)
--- NOTE | 2019-09-13 08:15 | PN ---
Progress Note - Progress Note Date of Service: 09/13/19 SOAP: Subjective: tolerating this cycle well. having BMs. no nausea. MTX level already 14 yesterday. Objective: Vital Signs Temp Pulse Resp BP Pulse Ox 97.8 F 63 16 114/69 100 09/13/19 07:40 09/13/19 07:40 09/13/19 07:40 09/13/19 07:40 09/13/19 07:40 perr eomi op moist cta bl s1 s2 nl soft nt +Bs no le edema port clean A+O x3 Laboratory Results - last 24 hr 09/12/19 09/13/19 09/13/19 17:10 03:45 06:00 WBC 2.8 L RBC 2.51 L Hgb 9.0 L Hct 25 L MCV 99 H MCH 36 H MCHC 36 RDW 13 Plt Count 60 L MPV 7.5 Neut % (Auto) 77.9 Lymph % (Auto) 11.9 Mcdonald % (Auto) 9.0 Eos % (Auto) 0.8 Baso % (Auto) 0.4 Absolute Neuts (auto) 2.2 Absolute Lymphs (auto) 0.3 L Absolute Monos (auto) 0.3 Absolute Eos (auto) 0.0 Absolute Basos (auto) 0.0 Absolute Nucleated RBC 0.0 Nucleated RBC % 0.1 Sodium Potassium Chloride Carbon Dioxide Anion Gap BUN Creatinine Est GFR ( Amer) Est GFR (Non-Af Amer) BUN/Creatinine Ratio Glucose Calcium Total Bilirubin AST ALT Alkaline Phosphatase Total Protein Albumin Globulin Albumin/Globulin Ratio Urine pH 9.0 9.0 Methotrexate 09/13/19 06:00 WBC RBC Hgb Hct MCV MCH MCHC RDW Plt Count MPV Neut % (Auto) Lymph % (Auto) Mcdonald % (Auto) Eos % (Auto) Baso % (Auto) Absolute Neuts (auto) Absolute Lymphs (auto) Absolute Monos (auto) Absolute Eos (auto) Absolute Basos (auto) Absolute Nucleated RBC Nucleated RBC % Sodium 141 Potassium 3.5 Chloride 107 Carbon Dioxide 31 Anion Gap 3 BUN 14 Creatinine 1.80 H Est GFR ( Amer) 47.3 Est GFR (Non-Af Amer) 39.1 BUN/Creatinine Ratio 7.8 L Glucose 86 Calcium 9.6 Total Bilirubin 0.40 AST 13 ALT 12 Alkaline Phosphatase 53 Total Protein 5.0 L Albumin 3.5 Globulin 1.5 L Albumin/Globulin Ratio 2.3 Urine pH Methotrexate Bisacodyl (Dulcolax Supp*) [address] DAILY PRN PRN Reason: CONSTIPATION Docusate Sodium (Colace Cap*) 100 mg PO BID [facility] Last Admin: 09/13/19 07:43 Dose: 100 mg Enoxaparin Sodium (Lovenox(*)) 30 mg SUBCUT Q24H [facility] Last Admin: 09/12/19 18:19 Dose: Not Given Sodium Bicarbonate 100 meq/ (Dextrose) 1,100 mls @ 200 mls/hr IV Q5H [facility] Last Admin: 09/13/19 07:42 Dose: 200 mls/hr Leucovorin Calcium 35 mg/ (Sodium Chloride) 53.5 mls @ 214 mls/hr IVPB Q6H [facility] Last Admin: 09/13/19 05:16 Dose: 214 mls/hr Polyethylene Glycol/Electrolytes (Miralax*) 17 gm PO BEDTIME [facility] Last Admin: 09/12/19 21:49 Dose: 17 gm Prochlorperazine (Compazine Tab*) 10 mg PO Q6HR PRN PRN Reason: NAUSEA Senna (Senokot 8.6 Mg Tab*) 3 tab PO DAILY [facility] Last Admin: 09/13/19 07:43 Dose: 3 tab Assessment: 58 yo M w PMH of HD and 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 Plan to go to [facility] next for MRI, LP and visit. 1. Cont C4 HDMTX + rituximab - daily MTX levels, anticipate will be low enough for D/C tomorrow afternoon - cont to monitor urine pH q 6 hrs, to maintain at pH >/= 7 2. Constipation management - allow for 45 min off of IV pump and access to outside - 3 senna and 1 colace q am, senna tea/miralax q pm (continuation of home regimen) - dulcolax suppository prn - goal for daily BM 3. flu shot today Dispo: dc home with MTX <0.1 mmol/L]
[2019-09-13] MEDS: Enoxaparin(*) 30 MG/0.3 ML SYR SUBCUT SCH (19:38)
[2019-09-13] MEDS: Polyethylene Glycol 3350* 17 GM PACKET PO SCH (20:51)
[2019-09-14] MEDS: SOD BICARB IV SCH ×3 (04:18→12:45)
[2019-09-14] MEDS: [UNRECOGNIZED DRUG - OTHER] IV SCH ×3 (04:18→12:45)
[2019-09-14] MEDS: NS 0.9% IVPB SCH ×2 (05:44→12:14)
[2019-09-14] MEDS: LEUCOVORIN CALCIUM IVPB SCH ×2 (05:44→12:14)
[2019-09-14 06:07] LABS: ABS Eosinophils 0.1 10^3/ul (0-0.6); ABS Lymphocytes 0.3 10^3/ul (1.0-4.8); ABS Monocytes 0.1 10^3/ul (0-0.8); ABS Neutrophils 1.6 10^3/ul (1.5-7.7); Eosinophil % 4.1 %; Hematocrit 26 % (42-52); Hemoglobin 9.2 g/dL (14.0-18.0); Lymphocyte % 13.1 %; Mean Corpuscular HGB Conc 36 g/dL (31-36); Mean Corpuscular Hemoglobin 36 pg (27-31); Mean Corpuscular Volume 99 fL (80-94); Mean Platelet Volume 7.3 fL (7.4-10.4); Nucleated Red Blood Cells % 0.1; Platelet Count 62 10^3/uL (150-450); Red Cell Distribution Width 12 % (10-15); White Blood Count 2.1 10^3/uL (3.5-10.8)
[2019-09-14 06:32] LABS: Albumin 3.6 g/dL (3.2-5.2); Albumin/Globulin Ratio 2.3 (1-3); BUN/Creatinine Ratio 7.7 (8-20); Calcium 9.7 mg/dL (8.6-10.3); EGFR African American 46.7 (>60); EGFR Non-African American 38.6 (>60); Globulin 1.6 g/dL (2-4); Potassium 3.5 mmol/L (3.5-5.0); Total Bilirubin 0.5 mg/dL (0.2-1.0); Total Protein 5.2 g/dL (6.4-8.9)
[2019-09-14] MEDS ORDERED: Influenza VAC *QUAD* 2019-20* 0.5 ML SYRINGE IM ONE (09:00)
[2019-09-14] MEDS: Senna TAB 8.6 mg* TAB PO SCH (09:07)
[2019-09-14] MEDS: Docusate CAP* 100 MG PO SCH (09:07)
[2019-09-14 17:17] VITALS: BP 136/72
--- NOTE | 2019-09-14 23:51 | DS ---
DISCHARGE SUMMARY: DATE OF ADMISSION: 09/10/19 DATE OF DISCHARGE: 09/14/19 PRIMARY CARE PROVIDER: Not listed. PRIMARY ONCOLOGIST: Dr. Isis Klein. ATTENDING PHYSICIAN: Dr. Isis Klein.* (DICTATED BY TEX DELGADO) DISCHARGING PROVIDER: TEX Delgado PRIMARY DISCHARGE DIAGNOSES: 1. 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 2. Constipation. DISCHARGE MEDICATIONS: 1. Dulcolax suppository 10 mg per rectum daily as needed for constipation. 2. MiraLax 17 g p.o. daily. 3. Senna 3 tablets p.o. daily. 4. Docusate 100 mg p.o. twice daily. HOSPITAL IMAGING: None. HOSPITAL COURSE: This is a 59-year-old gentleman with recurrent diffuse large B - cell lymphoma, who is under the care of Dr. Isis Klein and presented for his 4th cycle of high-dose methotrexate with rituximab. He has a history of chronic renal insufficiency with acute exacerbation following his first cycle of high-dose methotrexate and creatinine number quite returned back to baseline. He has had multiple delays in treatment, but decision was made to dose reduce further to 2 g/m2 for a GFR of less than 50, which the patient received to the cycle. He received Rituximab on day 1 with methotrexate starting day 2 followed by leucovorin rescue. Urine pH was monitored closely and remains greater than or equal to 7. Creatinine remained stable between 1.8 and 2 throughout his hospital stay. His chronic cytopenias, which remained unchanged during this hospitalization. Prior to hospitalization, he was struggling with severe constipation, potentially due to use of Aloxi as preventative antiemetic with prior cycles of high-dose methotrexate. He was started on aggressive bowel regimen, which was successful and continued throughout this hospitalization. He did not have any worsening constipation complicating this hospital stay. DISPOSITION AND FOLLOWUP PLAN: The patient is being discharged to home in stable condition. He has a followup with [facility] managing consultant clinical professor, Dr. Hodges for next week, at which point full restaging scans including lumbar puncture will be completed. The patient will be seen by Dr. Isis Klein the following week and instructed to call the oncology service with any questions that may arise. TEX DELGADO [id number]/[facility] #: [id number] XIOMARA
== END 2019-09-14 18:20 | disposition home or self-care (01) | DRG 847 ==
LOC: MED 15:56
PROVIDERS: ADMIT Internal Medicine Hematology & Oncology; ATTEND Internal Medicine Hematology & Oncology
DX: Z51.11 Encounter for antineoplastic chemotherapy (principal); C83.31 Diffuse large B-cell lymphoma, lymph nodes of head, face, and neck; N18.9 Chronic kidney disease, unspecified; D69.6 Thrombocytopenia, unspecified; K59.03 Drug induced constipation; T45.0X5A Adverse effect of antiallergic and antiemetic drugs, initial encounter; Y92.9 Unspecified place or not applicable; Z91.041 Radiographic dye allergy status
CPT/HCPCS: 36415; 80053; 80299; 83986; 85025; 85060; 96375; 96413; 96415; 99222; 99232; 99239; A9270-GY; J0185; J0640; J1100; J1200; J1642; J1650; J7060; J9260; J9312; Q0164

== ENCOUNTER 2020-03-15 16:01 | Inpatient (IN) | payer MEDICARE, OTHER ==
[2020-03-15 17:57] LABS: Urine Appearance Clear; Urine Bilirubin Negative (Negative); Urine Blood Negative (Negative); Urine Color Yellow; Urine Glucose 1+(50 mg/dL) (Negative); Urine Ketones Negative (Negative); Urine Nitrite Negative (Negative); Urine Protein 2+(100 mg/dL) (Negative); Urine Specific Gravity 1.017 (1.010-1.030); Urine Urobilinogen Negative (Negative)
[2020-03-15 18:01] LABS: ABS Lymphocytes 0.1 10^3/ul (1.0-4.8); ABS Monocytes 0.2 10^3/ul (0-0.8); Eosinophil % 0.2 %; Hematocrit 24 % (42-52); Hemoglobin 8.4 g/dL (14.0-18.0); Mean Corpuscular HGB Conc 35 g/dL (31-36); Mean Corpuscular Hemoglobin 35 pg (27-31); Mean Corpuscular Volume 100 fL (80-94); Mean Platelet Volume 7.4 fL (7.4-10.4); Red Blood Count 2.38 10^6 /uL (4.18-5.48); Red Cell Distribution Width 15 % (10-15); White Blood Count 0.4 10^3/uL (3.5-10.8)
[2020-03-15 18:02] LABS: Platelet Count 17 10^3/uL (150-450)
[2020-03-15 18:03] LABS: Urine Bacteria Absent (Absent); Urine Red Blood Cell Trace(0-2/hpf) (Absent); Urine White Blood Cell Trace(0-5/hpf) (Absent)
[2020-03-15 18:14] LABS: Nucleated Red Blood Cells % 0.2
[2020-03-15 18:15] LABS: ALT 12 U/L (7-52); AST 9 U/L (13-39); Albumin 3.9 g/dL (3.2-5.2); Albumin/Globulin Ratio 2.2 (1-3); Alkaline Phosphatase 42 U/L (34-104); Anion Gap 7 mmol/L (2-11); BUN/Creatinine Ratio 16.7 (8-20); Blood Urea Nitrogen 32 mg/dL (6-24); C Reactive Protein 153.02 mg/L (<8.01); CO2 Carbon Dioxide 20 mmol/L (22-32); Calcium 9.3 mg/dL (8.6-10.3); Chloride 105 mmol/L (101-111); Creatine Kinase < 10 U/L (10-223); EGFR African American 43.9 (>60); EGFR Non-African American 36.3 (>60); Globulin 1.8 g/dL (2-4); Glucose 136 mg/dL (70-100); Potassium 3.9 mmol/L (3.5-5.0); Sodium 132 mmol/L (135-145); Total Protein 5.7 g/dL (6.4-8.9)
[2020-03-15 18:19] LABS: CKMB ng/mL 1.3 ng/mL (0.6-6.3)
[2020-03-15] MEDS ORDERED: Cefepime 1 GM in Dextrose(*) 1 GM/50 ML BAG IV ONE ×2 (18:29→20:13)
[2020-03-15] MEDS ORDERED: NS 0.9% 500 ml BAG 500 ML IV ONE (18:33)
[2020-03-15] MEDS ORDERED: Cefepime 1 GM in Dextrose(*) 1 GM/50 ML BAG IV SCH (19:00)
[2020-03-15] MEDS ORDERED: Ondansetron 4 mg VIAL 2 MG/ML 2 ml VIAL IV PRN (19:22)
[2020-03-15 20:03] LABS: Activated Partial Thrombo Time 32.5 seconds (26.0-38.0); INR 1.2 (0.82-1.09)
[2020-03-15] MEDS ORDERED: Enoxaparin 30 MG/0.3 ML SYR(*) SUBCUT SCH (21:00)
[2020-03-15] MEDS: NS 0.9% 1000 ml BAG 1,000 ML IV SCH (22:24)
[2020-03-15] MEDS ORDERED: NS 0.9% 1000 ml BAG 1,000 ML IV ONE (22:55)
[2020-03-16] MEDS ORDERED: Cefepime 1 GM in Dextrose(*) 1 GM/50 ML BAG IV SCH (05:00)
[2020-03-16] MEDS: NS 0.9% IVPB SCH ×2 (05:08→17:40)
[2020-03-16] MEDS: CEFEPIME IVPB SCH ×2 (05:08→17:40)
[2020-03-16 05:47] LABS: Hematocrit 20 % (42-52); Mean Corpuscular HGB Conc 36 g/dL (31-36); Mean Corpuscular Hemoglobin 36 pg (27-31); Mean Corpuscular Volume 100 fL (80-94); Mean Platelet Volume 7.8 fL (7.4-10.4); Platelet Count 12 10^3/uL (150-450); Red Blood Count 1.96 10^6 /uL (4.18-5.48); Red Cell Distribution Width 15 % (10-15); White Blood Count 0.4 10^3/uL (3.5-10.8)
[2020-03-16 05:59] LABS: BUN/Creatinine Ratio 14.9 (8-20); Calcium 8.3 mg/dL (8.6-10.3); EGFR African American 41.4 (>60); EGFR Non-African American 34.2 (>60); Potassium 4.1 mmol/L (3.5-5.0)
[2020-03-16 06:44] LABS: ABS Lymphocytes 0.1 10^3/ul (1.0-4.8); ABS Monocytes 0.2 10^3/ul (0-0.8); Eosinophil % 0.8 %; Lymphocyte % 23.8 %
[2020-03-16] MEDS ORDERED: Enoxaparin 30 MG/0.3 ML SYR(*) SUBCUT SCH (09:00)
[2020-03-16] MEDS ORDERED: Lactated Ringers 1000 ml BAG 1,000 ML IV SCH (16:00)
[2020-03-16] MEDS: Witch Hazel PAD JAR TOPICAL SCH (23:10)
[2020-03-17] MEDS: NS 0.9% 1000 ml BAG 1,000 ML IV SCH (03:26)
[2020-03-17] MEDS: CEFEPIME IVPB SCH ×2 (05:50→17:27)
[2020-03-17] MEDS: NS 0.9% IVPB SCH ×2 (05:50→17:27)
[2020-03-17 06:23] LABS: ABS Lymphocytes 0.2 10^3/ul (1.0-4.8); ABS Monocytes 0.2 10^3/ul (0-0.8); Hematocrit 20 % (42-52); Hemoglobin 7.2 g/dL (14.0-18.0); Lymphocyte % 36.1 %; Mean Corpuscular HGB Conc 35 g/dL (31-36); Mean Corpuscular Hemoglobin 36 pg (27-31); Mean Corpuscular Volume 100 fL (80-94); Mean Platelet Volume 7.9 fL (7.4-10.4); Platelet Count 18 10^3/uL (150-450); Red Blood Count 2.02 10^6 /uL (4.18-5.48); Red Cell Distribution Width 15 % (10-15); White Blood Count 0.4 10^3/uL (3.5-10.8)
[2020-03-17 06:28] LABS: BUN/Creatinine Ratio 15.8 (8-20); Calcium 8.7 mg/dL (8.6-10.3); EGFR African American 48.2 (>60); EGFR Non-African American 39.9 (>60); Magnesium 1.9 mg/dL (1.9-2.7); Potassium 3.8 mmol/L (3.5-5.0)
[2020-03-17 06:45] LABS: Polychromasia 1+; Spherocytes 1+
[2020-03-17] MEDS: Witch Hazel PAD JAR TOPICAL SCH (09:28)
[2020-03-18] MEDS: NS 0.9% IVPB SCH ×2 (05:30→17:57)
[2020-03-18] MEDS: CEFEPIME IVPB SCH ×2 (05:30→17:57)
[2020-03-18 05:55] LABS: BUN/Creatinine Ratio 16.9 (8-20); Calcium 9.1 mg/dL (8.6-10.3); EGFR African American 51.9 (>60); EGFR Non-African American 42.9 (>60); Magnesium 1.9 mg/dL (1.9-2.7); Potassium 3.9 mmol/L (3.5-5.0)
[2020-03-18 06:07] LABS: Hematocrit 21 % (42-52); Hemoglobin 7.4 g/dL (14.0-18.0); Mean Corpuscular HGB Conc 35 g/dL (31-36); Mean Corpuscular Hemoglobin 35 pg (27-31); Mean Corpuscular Volume 101 fL (80-94); Mean Platelet Volume 7.6 fL (7.4-10.4); Platelet Count 19 10^3/uL (150-450); Red Blood Count 2.09 10^6 /uL (4.18-5.48); Red Cell Distribution Width 15 % (10-15); White Blood Count 0.7 10^3/uL (3.5-10.8)
[2020-03-18 07:20] LABS: ABS Lymphocytes 0.2 10^3/ul (1.0-4.8); ABS Monocytes 0.3 10^3/ul (0-0.8); Lymphocyte % 30.3 %; Nucleated Red Blood Cells % 0.2
[2020-03-18] MEDS ORDERED: PENTAMIDINE ISETHIONATE IVPB ONE (09:00)
[2020-03-18] MEDS ORDERED: D5W IVPB ONE (09:00)
[2020-03-18] MEDS: Witch Hazel PAD JAR TOPICAL SCH (09:36)
[2020-03-18] MEDS ORDERED: PENTAMIDINE ISETHIONATE 300 MG IVPB ONE (11:00)
[2020-03-18 17:57] LABS: 4/8 H/S Ratio 1.6 (>=0.9); CD3 152 cells/mcL (550-2202); CD4 96 cells/mcL (365-1437); CD8 59 cells/mcL (117-846)
[2020-03-19] MEDS: NS 0.9% IVPB SCH ×2 (06:10→17:34)
[2020-03-19] MEDS: CEFEPIME IVPB SCH ×2 (06:10→17:34)
[2020-03-19 07:02] LABS: Hematocrit 23 % (42-52); Hemoglobin 8.2 g/dL (14.0-18.0); Mean Corpuscular HGB Conc 35 g/dL (31-36); Mean Corpuscular Hemoglobin 36 pg (27-31); Mean Corpuscular Volume 103 fL (80-94); Mean Platelet Volume 8.1 fL (7.4-10.4); Platelet Count 19 10^3/uL (150-450); Red Blood Count 2.28 10^6 /uL (4.18-5.48); Red Cell Distribution Width 15 % (10-15); White Blood Count 1.9 10^3/uL (3.5-10.8)
[2020-03-19 07:12] LABS: Calcium 9.2 mg/dL (8.6-10.3); EGFR African American 51.6 (>60); EGFR Non-African American 42.6 (>60); Potassium 4.1 mmol/L (3.5-5.0)
[2020-03-19 08:11] LABS: ABS Lymphocytes 0.4 10^3/ul (1.0-4.8); ABS Monocytes 0.4 10^3/ul (0-0.8); Eosinophil % 2.3 %; Lymphocyte % 20.7 %
[2020-03-19] MEDS: Witch Hazel PAD JAR TOPICAL SCH (09:29)
[2020-03-20] MEDS: CEFEPIME IVPB SCH (06:00)
[2020-03-20] MEDS: NS 0.9% IVPB SCH (06:00)
[2020-03-20 06:18] LABS: Hematocrit 22 % (42-52); Hemoglobin 7.8 g/dL (14.0-18.0); Mean Corpuscular HGB Conc 35 g/dL (31-36); Mean Corpuscular Hemoglobin 35 pg (27-31); Mean Corpuscular Volume 100 fL (80-94); Mean Platelet Volume 8.3 fL (7.4-10.4); Platelet Count 21 10^3/uL (150-450); Red Blood Count 2.22 10^6 /uL (4.18-5.48); Red Cell Distribution Width 15 % (10-15); White Blood Count 3.8 10^3/uL (3.5-10.8)
[2020-03-20 06:33] LABS: BUN/Creatinine Ratio 16.3 (8-20); Calcium 9.5 mg/dL (8.6-10.3); EGFR African American 54.2 (>60); EGFR Non-African American 44.8 (>60); Potassium 3.9 mmol/L (3.5-5.0)
[2020-03-20 06:49] LABS: ABS Eosinophils 0.1 10^3/ul (0-0.6); ABS Lymphocytes 0.4 10^3/ul (1.0-4.8); ABS Monocytes 0.4 10^3/ul (0-0.8); Eosinophil % 1.5 %; Lymphocyte % 11.5 %; Nucleated Red Blood Cells % 0.2
[2020-03-20 07:38] VITALS: BP 92/51
[2020-03-20] MEDS: Witch Hazel PAD JAR TOPICAL SCH (08:08)
[2020-03-20] MEDS ORDERED: Enoxaparin 60 MG/0.6 ML SYR(*) SUBCUT ONE (09:30)
== END 2020-03-20 11:25 | disposition home or self-care (01) | DRG 809 ==
LOC: ED 16:01 → MED 19:14 → SSU 03-19 01:52
PROVIDERS: ADMIT Nurse Practitioner Acute Care; ATTEND Hospitalist

== ENCOUNTER 2020-11-23 19:16 | Inpatient (IN) ==
[2020-11-23] MEDS ORDERED: NS 0.9% 1000 ml BAG 1,000 ML IV ONE (20:56)
[2020-11-23 22:02] LABS: Influenza A Molecular Negative (Negative); Influenza B Molecular Negative (Negative)
[2020-11-23 22:07] LABS: Hematocrit 32 % (42-52); Hemoglobin 11.1 g/dL (14.0-18.0); Mean Corpuscular HGB Conc 35 g/dL (31-36); Mean Corpuscular Hemoglobin 36 pg (27-31); Mean Corpuscular Volume 104 fL (80-94); Mean Platelet Volume 6.9 fL (7.4-10.4); Platelet Count 39 10^3/uL (150-450); Red Blood Count 3.06 10^6 /uL (4.18-5.48); Red Cell Distribution Width 13 % (10-15); White Blood Count 0.8 10^3/uL (3.5-10.8)
[2020-11-23 22:10] LABS: Albumin 4.8 g/dL (3.2-5.2); Albumin/Globulin Ratio 2.5 (1-3); C Reactive Protein 5.27 mg/L (<8.01); EGFR Non-African American 41.3 (>60); Globulin 1.9 g/dL (2-4); Total Bilirubin 0.6 mg/dL (0.2-1.0); Total Protein 6.7 g/dL (6.4-8.9)
[2020-11-23 22:46] LABS: Urine Bacteria Absent (Absent); Urine Red Blood Cell Trace(0-2/hpf) (Absent); Urine White Blood Cell Trace(0-5/hpf) (Absent)
[2020-11-23 22:50] LABS: Urine Appearance Clear; Urine Bilirubin Negative (Negative); Urine Blood Negative (Negative); Urine Color Colorless; Urine Glucose Negative (Negative); Urine Ketones Negative (Negative); Urine Nitrite Negative (Negative); Urine Protein Negative (Negative); Urine Specific Gravity 1.004 (1.010-1.030); Urine Urobilinogen Negative (Negative)
[2020-11-23 22:54] LABS: ABS Lymphocytes 0.4 10^3/ul (1.0-4.8); ABS Monocytes 0.4 10^3/ul (0-0.8); Eosinophil % 1.5 %; Lymphocyte % 47.9 %
[2020-11-24] MEDS ORDERED: Cefepime 2 GM IV - ED ONCE IV ONE (01:00)
[2020-11-24] MEDS: NS 0.9% 1000 ml BAG 1,000 ML IV SCH ×2 (04:57→23:49)
[2020-11-24 08:37] LABS: INR 1.03 (0.82-1.09)
[2020-11-24 08:47] LABS: BUN/Creatinine Ratio 14.6 (8-20); Calcium 8.8 mg/dL (8.6-10.3); EGFR African American 55.2 (>60); EGFR Non-African American 45.6 (>60)
[2020-11-24 08:52] LABS: Hematocrit 30 % (42-52); Hemoglobin 10.1 g/dL (14.0-18.0); Mean Corpuscular HGB Conc 34 g/dL (31-36); Mean Corpuscular Hemoglobin 36 pg (27-31); Mean Corpuscular Volume 104 fL (80-94); Mean Platelet Volume 9.1 fL (7.4-10.4); Platelet Count 38 10^3/uL (150-450); Red Blood Count 2.84 10^6 /uL (4.18-5.48); Red Cell Distribution Width 13 % (10-15); White Blood Count 0.7 10^3/uL (3.5-10.8)
[2020-11-24] MEDS: Cefepime 2 GM in Dextrose 2 GM/50 ML BAG IV SCH (12:46)
[2020-11-24] MEDS ORDERED: Iodixanol (CONTRAST) 320 MG/ML 100 ML SDV IV ONE (17:25)
[2020-11-25] MEDS: Cefepime 2 GM in Dextrose 2 GM/50 ML BAG IV SCH ×2 (00:01→12:51)
[2020-11-25 06:28] LABS: Hematocrit 27 % (42-52); Hemoglobin 9.5 g/dL (14.0-18.0); Mean Corpuscular HGB Conc 35 g/dL (31-36); Mean Corpuscular Hemoglobin 36 pg (27-31); Mean Corpuscular Volume 103 fL (80-94); Mean Platelet Volume 7.5 fL (7.4-10.4); Platelet Count 29 10^3/uL (150-450); Red Blood Count 2.62 10^6 /uL (4.18-5.48); Red Cell Distribution Width 13 % (10-15); White Blood Count 0.9 10^3/uL (3.5-10.8)
[2020-11-25 06:45] LABS: ABS Lymphocytes 0.3 10^3/ul (1.0-4.8); ABS Monocytes 0.5 10^3/ul (0-0.8); Eosinophil % 3.7 %
[2020-11-25] MEDS: NS 0.9% 1000 ml BAG 1,000 ML IV SCH ×2 (11:04→22:07)
[2020-11-26] MEDS: Cefepime 2 GM in Dextrose 2 GM/50 ML BAG IV SCH ×3 (00:34→23:58)
[2020-11-26 05:55] LABS: Hematocrit 27 % (42-52); Hemoglobin 9.5 g/dL (14.0-18.0); Mean Corpuscular HGB Conc 35 g/dL (31-36); Mean Corpuscular Hemoglobin 36 pg (27-31); Mean Corpuscular Volume 104 fL (80-94); Mean Platelet Volume 7.8 fL (7.4-10.4); Platelet Count 30 10^3/uL (150-450); Red Blood Count 2.63 10^6 /uL (4.18-5.48); Red Cell Distribution Width 13 % (10-15)
[2020-11-26 06:52] LABS: ABS Lymphocytes 0.3 10^3/ul (1.0-4.8); ABS Monocytes 0.6 10^3/ul (0-0.8); Eosinophil % 3.4 %; Lymphocyte % 32.2 %
[2020-11-26] MEDS: NS 0.9% 1000 ml BAG 1,000 ML IV SCH ×2 (09:28→21:08)
[2020-11-26] MEDS ORDERED: Cefepime 2 GM in Dextrose 2 GM/50 ML BAG IV SCH (11:00)
[2020-11-27 07:31] LABS: BUN/Creatinine Ratio 14.1 (8-20); Calcium 8.7 mg/dL (8.6-10.3); EGFR Non-African American 51.2 (>60)
[2020-11-27 07:42] LABS: ABS Neutrophils 0.1 10^3/ul (1.5-7.7); Hematocrit 27 % (42-52); Hemoglobin 9.4 g/dL (14.0-18.0); Mean Corpuscular HGB Conc 35 g/dL (31-36); Mean Corpuscular Hemoglobin 36 pg (27-31); Mean Corpuscular Volume 105 fL (80-94); Mean Platelet Volume 7.7 fL (7.4-10.4); Platelet Count 31 10^3/uL (150-450); Red Blood Count 2.62 10^6 /uL (4.18-5.48); Red Cell Distribution Width 14 % (10-15); White Blood Count 1.4 10^3/uL (3.5-10.8)
[2020-11-27 08:27] LABS: ABS Eosinophils 0.1 10^3/ul (0-0.6); ABS Lymphocytes 0.4 10^3/ul (1.0-4.8); ABS Monocytes 0.8 10^3/ul (0-0.8); Nucleated Red Blood Cells % 0.2
[2020-11-27] MEDS: NS 0.9% 1000 ml BAG 1,000 ML IV SCH ×2 (08:27→21:57)
[2020-11-27] MEDS: Cefepime 2 GM in Dextrose 2 GM/50 ML BAG IV SCH ×2 (12:34→23:31)
[2020-11-28 06:14] LABS: Hematocrit 28 % (42-52); Hemoglobin 9.6 g/dL (14.0-18.0); Mean Corpuscular HGB Conc 34 g/dL (31-36); Mean Corpuscular Hemoglobin 36 pg (27-31); Mean Corpuscular Volume 105 fL (80-94); Mean Platelet Volume 7.5 fL (7.4-10.4); Platelet Count 32 10^3/uL (150-450); Red Blood Count 2.69 10^6 /uL (4.18-5.48); Red Cell Distribution Width 13 % (10-15); White Blood Count 2.8 10^3/uL (3.5-10.8)
[2020-11-28 08:37] LABS: ABS Eosinophils 0.1 10^3/ul (0-0.6); ABS Lymphocytes 0.5 10^3/ul (1.0-4.8); ABS Monocytes 0.9 10^3/ul (0-0.8); ABS Neutrophils 1.3 10^3/ul (1.5-7.7); Eosinophil % 3.2 %; Nucleated Red Blood Cells % 0.1
[2020-11-28] MEDS: NS 0.9% 1000 ml BAG 1,000 ML IV SCH (10:19)
[2020-11-28] MEDS: Cefepime 2 GM in Dextrose 2 GM/50 ML BAG IV SCH (11:09)
[2020-11-28 12:46] VITALS: BP 107/53
[2020-11-28] MEDS ORDERED: Cefepime 2 GM in Dextrose 2 GM/50 ML BAG IV SCH (21:00)
== END 2020-11-28 15:30 | disposition home or self-care (01) | DRG 872 ==
LOC: ED 19:16 → MEDTELE 11-24 02:27
PROVIDERS: ADMIT Internal Medicine; ATTEND Internal Medicine

== ENCOUNTER 2023-10-05 10:47 | Inpatient (IN) ==
[~2023-10-05 10:47] MED LIST: Cefepime 2 GM in NS 0.9% 50 ML BAG IVPB SCH
[2023-10-05 12:00] LABS: Hematocrit 29.7 % (38-53); Hemoglobin 10.4 g/dL (13.2-16.3); Mean Corpuscular Hemoglobin 34.4 pg (27-33); Mean Corpuscular Volume 98.3 fL (80-97); Red Blood Count 3.02 10^6/uL (4.06-5.63); Red Cell Distribution Width 13.3 % (12-17); White Blood Count 0.7 10^3/uL (3.6-10.2)
[2023-10-05 12:01] LABS: ABS Neutrophils 0.4 10^3/uL (1.5-7.6)
[2023-10-05] MEDS ORDERED: Ondansetron 4 mg VIAL 2 MG/ML 2 ml VIAL IV PRN (12:07)
[2023-10-05 12:10] LABS: Albumin 3.6 g/dL (3.2-5.2); Albumin/Globulin Ratio 1.8 (1-3); C Reactive Protein 37.34 mg/L (<8.01); Calcium 8.9 mg/dL (8.6-10.3); Creatinine, Serum 1.65 mg/dL (0.67-1.17); Potassium 4.3 mmol/L (3.5-5.0); Total Bilirubin 0.5 mg/dL (0.2-1.0); Total Protein 5.6 g/dL (6.4-8.9)
[2023-10-05 12:43] LABS: Urine Appearance Clear; Urine Bilirubin Negative (Negative); Urine Blood Negative (Negative); Urine Color Yellow; Urine Glucose Negative (Negative); Urine Ketones Negative (Negative); Urine Nitrite Negative (Negative); Urine Protein 1+(30 mg/dL) (Negative); Urine Urobilinogen Negative (Negative)
[2023-10-05 12:48] LABS: Urine Bacteria 1+ (Absent); Urine Red Blood Cell Trace(0-2/hpf) (Absent); Urine White Blood Cell Trace(0-5/hpf) (Absent)
[2023-10-05] MEDS ORDERED: Cefepime 2 GM in Dextrose 2 GM/50 ML BAG IV SCH (13:00)
[2023-10-05 13:15] LABS: Mean Platelet Volume 7.7 fL (7.5-11.2); Platelet Count 39 10^3/uL (150-450)
[2023-10-05 13:16] LABS: ABS Lymphocytes 0.1 10^3/uL (1.0-4.8); ABS Monocytes 0.2 10^3/uL (0.0-1.1); Eosinophil % 0.5 %; Lymphocyte % 10.7 %; RBC Morphology Normal (Normal)
[2023-10-05] MEDS: NS 0.9% 1000 ml BAG 1,000 ML IV SCH (15:56)
[2023-10-05] MEDS: Sulfamethox/Trimethoprim DS TAB 800/160 mg PO SCH (17:40)
[2023-10-06] MEDS: Cefepime 2 GM in Dextrose 2 GM/50 ML BAG IV SCH ×2 (00:27→11:36)
[2023-10-06 06:38] LABS: Albumin 3.1 g/dL (3.2-5.2); Albumin/Globulin Ratio 2.1 (1-3); C Reactive Protein 36.57 mg/L (<8.01); Calcium 8.3 mg/dL (8.6-10.3); Creatinine, Serum 1.52 mg/dL (0.67-1.17); Globulin 1.5 g/dL (2-4); Potassium 3.9 mmol/L (3.5-5.0); Total Bilirubin 0.4 mg/dL (0.2-1.0); Total Protein 4.6 g/dL (6.4-8.9); eGFR CKD-EPI 51.8 (>60)
[2023-10-06 07:23] LABS: Hematocrit 26.7 % (38-53); Hemoglobin 9.3 g/dL (13.2-16.3); Mean Corpuscular Hemoglobin 34.4 pg (27-33); Mean Corpuscular Hgb Conc 34.9 g/dL (31-36); Mean Corpuscular Volume 98.6 fL (80-97); Mean Platelet Volume 7.5 fL (7.5-11.2); Platelet Count 28 10^3/uL (150-450); Red Blood Count 2.71 10^6/uL (4.06-5.63); Red Cell Distribution Width 13.4 % (12-17); White Blood Count 0.6 10^3/uL (3.6-10.2)
[2023-10-06 07:35] LABS: ABS Lymphocytes 0.1 10^3/uL (1.0-4.8); ABS Monocytes 0.1 10^3/uL (0.0-1.1); ABS Neutrophils 0.4 10^3/uL (1.5-7.6); Eosinophil % 1.2 %; Lymphocyte % 11.4 %; Nucleated Red Blood Cells % 0.4 %/100WBC (0.0-0.8); RBC Morphology Normal (Normal)
[2023-10-06] MEDS: NS 0.9% 1000 ml BAG 1,000 ML IV SCH (08:06)
[2023-10-06] MEDS: Lactated Ringers 1000 ml BAG 1,000 ML IV SCH ×2 (09:47→17:16)
[2023-10-07] MEDS: Lactated Ringers 1000 ml BAG 1,000 ML IV SCH ×4 (00:27→17:25)
[2023-10-07] MEDS: Cefepime 2 GM in Dextrose 2 GM/50 ML BAG IV SCH ×2 (00:30→12:01)
[2023-10-07 07:06] LABS: Calcium 8.4 mg/dL (8.6-10.3); Creatinine, Serum 1.5 mg/dL (0.67-1.17); Magnesium 1.6 mg/dL (1.9-2.7); Potassium 3.8 mmol/L (3.5-5.0); eGFR CKD-EPI 52.6 (>60)
[2023-10-07 07:38] LABS: Hematocrit 26.5 % (38-53); Hemoglobin 9.1 g/dL (13.2-16.3); Mean Corpuscular Hemoglobin 33.8 pg (27-33); Mean Corpuscular Hgb Conc 34.4 g/dL (31-36); Mean Corpuscular Volume 98.3 fL (80-97); Mean Platelet Volume 8.3 fL (7.5-11.2); Platelet Count 35 10^3/uL (150-450); Red Blood Count 2.69 10^6/uL (4.06-5.63); Red Cell Distribution Width 13.5 % (12-17); White Blood Count 0.9 10^3/uL (3.6-10.2)
[2023-10-07] MEDS ORDERED: Magnesium Sulfate 2 gm BAG 2 GM/50 ML BAG IVPB ONE (08:40)
[2023-10-07] MEDS ORDERED: Iodixanol (CONTRAST) 320 MG/ML 100 ML SDV IV ONE (09:20)
[2023-10-07 09:34] LABS: ABS Lymphocytes 0.1 10^3/uL (1.0-4.8); ABS Monocytes 0.1 10^3/uL (0.0-1.1); ABS Neutrophils 0.7 10^3/uL (1.5-7.6); Dohle Bodies Present; Eosinophil % 1.1 %; Lymphocyte % 8.7 %; Nucleated Red Blood Cells % 0.1 %/100WBC (0.0-0.8); Toxic Granulation 2+
[2023-10-07] MEDS ORDERED: Magnesium Sulfate IV 1GM/100ML 1 GM/100 ML BAG IV ONE (10:40)
[2023-10-07] MEDS: Sulfamethox/Trimethoprim DS TAB 800/160 mg PO SCH (16:37)
[2023-10-08] MEDS: Cefepime 2 GM in Dextrose 2 GM/50 ML BAG IV SCH ×2 (00:13→11:51)
[2023-10-08] MEDS: Lactated Ringers 1000 ml BAG 1,000 ML IV SCH ×2 (00:13→07:58)
[2023-10-08 08:29] LABS: Hematocrit 26.9 % (38-53); Hemoglobin 9.3 g/dL (13.2-16.3); Mean Corpuscular Hemoglobin 33.9 pg (27-33); Mean Corpuscular Hgb Conc 34.6 g/dL (31-36); Mean Corpuscular Volume 97.7 fL (80-97); Platelet Count 31 10^3/uL (150-450); Red Blood Count 2.75 10^6/uL (4.06-5.63); Red Cell Distribution Width 13.5 % (12-17); White Blood Count 0.7 10^3/uL (3.6-10.2)
[2023-10-08 08:40] LABS: Calcium 8.3 mg/dL (8.6-10.3); Creatinine, Serum 1.43 mg/dL (0.67-1.17); Magnesium 1.9 mg/dL (1.9-2.7); Potassium 3.8 mmol/L (3.5-5.0); eGFR CKD-EPI 55.7 (>60)
[2023-10-08 09:17] LABS: ABS Lymphocytes 0.1 10^3/uL (1.0-4.8); ABS Monocytes 0.2 10^3/uL (0.0-1.1); ABS Neutrophils 0.4 10^3/uL (1.5-7.6); Eosinophil % 0.8 %; Lymphocyte % 13.5 %; Nucleated Red Blood Cells % 0.3 %/100WBC (0.0-0.8); RBC Morphology Normal (Normal)
[2023-10-08] MEDS ORDERED: Piperacillin/Tazobac 3.375 BAG 3.375 GM/100 ML BAG IV ONE (13:11)
[2023-10-08 13:37] LABS: C Reactive Protein 52.78 mg/L (<8.01)
[2023-10-08] MEDS ORDERED: Zosyn per Pharmacy NOTE FOLLOW UP SCH (14:00)
[2023-10-08] MEDS ORDERED: Lactated Ringers 1000 ml BAG 1,000 ML IV SCH (14:00)
[2023-10-08 14:36] LABS: Erythrocyte Sed Rate 35 mm/Hr (0-19)
[2023-10-08] MEDS: ZOSYN 3.375 GM Q8H per EXTENDED INFUSION IV SCH (19:52)
[2023-10-09] MEDS: ZOSYN 3.375 GM Q8H per EXTENDED INFUSION IV SCH ×3 (04:46→20:23)
[2023-10-09 07:51] LABS: Calcium 8.6 mg/dL (8.6-10.3); Creatinine, Serum 1.45 mg/dL (0.67-1.17); Magnesium 1.8 mg/dL (1.9-2.7); Potassium 3.7 mmol/L (3.5-5.0); eGFR CKD-EPI 54.8 (>60)
[2023-10-09 07:57] LABS: Hematocrit 26.9 % (38-53); Hemoglobin 9.4 g/dL (13.2-16.3); Mean Corpuscular Hemoglobin 33.9 pg (27-33); Mean Corpuscular Hgb Conc 34.9 g/dL (31-36); Mean Platelet Volume 8.3 fL (7.5-11.2); Platelet Count 33 10^3/uL (150-450); Red Blood Count 2.77 10^6/uL (4.06-5.63); Red Cell Distribution Width 13.6 % (12-17)
[2023-10-09 09:02] LABS: ABS Lymphocytes 0.1 10^3/uL (1.0-4.8); ABS Monocytes 0.3 10^3/uL (0.0-1.1); ABS Neutrophils 0.6 10^3/uL (1.5-7.6); ABS Nucleated RBC 0.01 10^3/ul; Eosinophil % 2.2 %; Lymphocyte % 8.2 %; Nucleated Red Blood Cells % 1.3 %/100WBC (0.0-0.8); RBC Morphology Normal (Normal)
[2023-10-10] MEDS: ZOSYN 3.375 GM Q8H per EXTENDED INFUSION IV SCH ×3 (04:39→21:43)
[2023-10-10 08:27] LABS: ABS Lymphocytes 0.1 10^3/uL (1.0-4.8); ABS Monocytes 0.3 10^3/uL (0.0-1.1); ABS Neutrophils 1.5 10^3/uL (1.5-7.6); ABS Nucleated RBC 0.01 10^3/ul; Eosinophil % 0.9 %; Lymphocyte % 6.6 %; Nucleated Red Blood Cells % 0.3 %/100WBC (0.0-0.8)
[2023-10-10 08:28] LABS: Hematocrit 27.1 % (38-53); Hemoglobin 9.5 g/dL (13.2-16.3); Mean Corpuscular Hemoglobin 33.9 pg (27-33); Mean Corpuscular Hgb Conc 34.9 g/dL (31-36); Mean Corpuscular Volume 97.1 fL (80-97); Mean Platelet Volume 8.2 fL (7.5-11.2); Platelet Count 34 10^3/uL (150-450); Red Blood Count 2.79 10^6/uL (4.06-5.63); Red Cell Distribution Width 13.3 % (12-17); White Blood Count 1.9 10^3/uL (3.6-10.2)
[2023-10-10] MEDS ORDERED: Lactated Ringers 1000 ml BAG 1,000 ML IV ONE (11:16)
[2023-10-10 13:34] LABS: Urine Appearance Clear; Urine Bilirubin Negative (Negative); Urine Blood 1+ (Negative); Urine Color Yellow; Urine Glucose 1+(50 mg/dL) (Negative); Urine Ketones Negative (Negative); Urine Nitrite Negative (Negative); Urine Protein 2+(100 mg/dL) (Negative); Urine Specific Gravity 1.019 (1.002-1.030); Urine Urobilinogen Negative (Negative)
[2023-10-10 13:54] LABS: Urine Bacteria Absent (Absent); Urine Red Blood Cell Trace(0-2/hpf) (Absent); Urine White Blood Cell Trace(0-5/hpf) (Absent)
[2023-10-10] MEDS ORDERED: Remdesivir 100 mg Vial 200 MG in NS 0.9% 250 ml 210 ML IV ONE (15:20)
[2023-10-10] MEDS ORDERED: Vancomycin 1,000 MG in NS 0.9% 250 ml 250 ML IVPB ONE (17:50)
[2023-10-10] MEDS ORDERED: Vancomycin per Pharmacy 1 EA NOTE FOLLOW UP SCH (18:00)
[2023-10-10] MEDS: Sulfamethox/Trimethoprim DS TAB 800/160 mg PO SCH (19:44)
[2023-10-10] MEDS: Lactated Ringers 1000 ml BAG 1,000 ML IV SCH (20:56)
[2023-10-11] MEDS: ZOSYN 3.375 GM Q8H per EXTENDED INFUSION IV SCH ×2 (03:54→11:56)
[2023-10-11 06:34] LABS: INR 1.01 (0.83-1.13)
[2023-10-11 06:35] LABS: Albumin/Globulin Ratio 1.7 (1-3); Calcium 8.5 mg/dL (8.6-10.3); Creatinine, Serum 1.58 mg/dL (0.67-1.17); Globulin 1.8 g/dL (2-4); Magnesium 1.7 mg/dL (1.9-2.7); Potassium 3.7 mmol/L (3.5-5.0); Total Bilirubin 0.4 mg/dL (0.2-1.0); Total Protein 4.8 g/dL (6.4-8.9); eGFR CKD-EPI 49.5 (>60)
[2023-10-11 06:44] LABS: Hematocrit 26.4 % (38-53); Hemoglobin 9.1 g/dL (13.2-16.3); Mean Corpuscular Hemoglobin 33.4 pg (27-33); Mean Corpuscular Hgb Conc 34.3 g/dL (31-36); Mean Corpuscular Volume 97.6 fL (80-97); Mean Platelet Volume 8.5 fL (7.5-11.2); Platelet Count 32 10^3/uL (150-450); Red Blood Count 2.71 10^6/uL (4.06-5.63); Red Cell Distribution Width 13.1 % (12-17); White Blood Count 1.6 10^3/uL (3.6-10.2)
[2023-10-11 08:00] LABS: ABS Lymphocytes 0.1 10^3/uL (1.0-4.8); ABS Monocytes 0.1 10^3/uL (0.0-1.1); ABS Neutrophils 1.3 10^3/uL (1.5-7.6); Eosinophil % 1.4 %; Lymphocyte % 5.5 %; Nucleated Red Blood Cells % 0.3 %/100WBC (0.0-0.8); Schistocytes 1+; Tear Drop Cells 1+
[2023-10-11] MEDS: Vancomycin 750 MG in NS 0.9% 250 ML IVPB SCH ×2 (09:07→20:05)
[2023-10-11] MEDS ORDERED: Magnesium Sulfate 2 gm BAG 2 GM/50 ML BAG IVPB ONE (09:49)
[2023-10-11] MEDS: Albuterol/Ipratropium NEB.SOL (2.5/0.5 MG) 3 ML NEB.SOLN INH SCH ×3 (11:39→19:30)
[2023-10-11] MEDS: Lactated Ringers 1000 ml BAG 1,000 ML IV SCH (17:14)
[2023-10-11] MEDS: Remdesivir 100 mg Vial 100 MG in NS 0.9% 250 ml 230 ML IV SCH (22:03)
[2023-10-11] MEDS ORDERED: Albuterol/Ipratropium NEB.SOL (2.5/0.5 MG) 3 ML NEB.SOLN INH PRN (23:36)
[2023-10-12] MEDS: ZOSYN 3.375 GM Q8H per EXTENDED INFUSION IV SCH ×3 (00:02→16:48)
[2023-10-12 08:10] LABS: Hematocrit 26.9 % (38-53); Hemoglobin 9.3 g/dL (13.2-16.3); Mean Corpuscular Hemoglobin 33.9 pg (27-33); Mean Corpuscular Hgb Conc 34.5 g/dL (31-36); Mean Corpuscular Volume 98.2 fL (80-97); Mean Platelet Volume 8.4 fL (7.5-11.2); Platelet Count 40 10^3/uL (150-450); Red Blood Count 2.74 10^6/uL (4.06-5.63); Red Cell Distribution Width 13.2 % (12-17); White Blood Count 1.3 10^3/uL (3.6-10.2)
[2023-10-12 08:21] LABS: Albumin 3.1 g/dL (3.2-5.2); Albumin/Globulin Ratio 1.6 (1-3); Calcium 8.4 mg/dL (8.6-10.3); Creatinine, Serum 1.58 mg/dL (0.67-1.17); Globulin 1.9 g/dL (2-4); Potassium 3.8 mmol/L (3.5-5.0); Total Bilirubin 0.4 mg/dL (0.2-1.0); eGFR CKD-EPI 49.5 (>60)
[2023-10-12 08:28] LABS: INR 1.02 (0.83-1.13)
[2023-10-12 09:05] LABS: ABS Lymphocytes 0.1 10^3/uL (1.0-4.8); ABS Monocytes 0.1 10^3/uL (0.0-1.1); Eosinophil % 2.6 %; Lymphocyte % 6.4 %; Nucleated Red Blood Cells % 0.1 %/100WBC (0.0-0.8); RBC Morphology Normal (Normal)
[2023-10-12] MEDS: Vancomycin 750 MG in NS 0.9% 250 ML IVPB SCH ×2 (10:43→23:21)
[2023-10-12] MEDS ORDERED: Immune Globulin IV Order (CPOE ENTRY PROTOCOL) IV SCH (12:00)
[2023-10-12] MEDS ORDERED: Immune Glob 10%-20GM GAMMAGLIQ 20 GM, Immune Glob 10%-5 GM GAMMAGLIQ 5 GM in Premix IV ... IV ONE (12:00)
[2023-10-12 22:47] LABS: Fungitell Qualitative Result Negative (Negative); Fungitell Quantitative Value <31 pg/mL (<60 pg/mL)
[2023-10-12 22:54] LABS: Adenovirus Undetected (Undetected); Bordetella parapertussis Undetected (Undetected); Bordetella pertussis Undetected (Undetected); Chlamydophila pneumoniae Undetected (Undetected); Coronavirus 229E Undetected (Undetected); Coronavirus HKU1 Undetected (Undetected); Coronavirus NL63 Undetected (Undetected); Coronavirus OC43 Undetected (Undetected); Human Metapneumovirus Undetected (Undetected); Human Rhinovirus/Enterovirus Undetected (Undetected); Influenza A Undetected (Undetected); Influenza B Undetected (Undetected); Mycoplasmoides pneumoniae Undetected (Undetected); Parainfluenza Virus 1 Undetected (Undetected); Parainfluenza Virus 2 Undetected (Undetected); Parainfluenza Virus 3 Undetected (Undetected); Parainfluenza Virus 4 Undetected (Undetected); Respiratory Syncytial Virus Undetected (Undetected); Specimen Source NASOPHARYNGEAL SWAB
[2023-10-12] MEDS: Lactated Ringers 1000 ml BAG 1,000 ML IV SCH (23:15)
[2023-10-12] MEDS: Sulfamethox/Trimethoprim DS TAB 800/160 mg PO SCH (23:21)
[2023-10-12] MEDS: Remdesivir 100 mg Vial 100 MG in NS 0.9% 250 ml 230 ML IV SCH (23:22)
[2023-10-13] MEDS: ZOSYN 3.375 GM Q8H per EXTENDED INFUSION IV SCH ×4 (01:11→21:29)
[2023-10-13 06:45] LABS: Albumin/Globulin Ratio 1.9 (1-3); Calcium 8.5 mg/dL (8.6-10.3); Creatinine, Serum 1.41 mg/dL (0.67-1.17); Globulin 1.6 g/dL (2-4); Potassium 3.9 mmol/L (3.5-5.0); Total Bilirubin 0.4 mg/dL (0.2-1.0); Total Protein 4.6 g/dL (6.4-8.9); eGFR CKD-EPI 56.7 (>60)
[2023-10-13 06:50] LABS: INR 1.08 (0.83-1.13)
[2023-10-13 08:07] LABS: ABS Lymphocytes 0.2 10^3/uL (1.0-4.8); ABS Monocytes 0.3 10^3/uL (0.0-1.1); ABS Neutrophils 2.9 10^3/uL (1.5-7.6); ABS Nucleated RBC 0.01 10^3/ul; Eosinophil % 1.4 %; Hematocrit 26.2 % (38-53); Lymphocyte % 4.4 %; Mean Corpuscular Hemoglobin 33.5 pg (27-33); Mean Corpuscular Hgb Conc 34.3 g/dL (31-36); Mean Corpuscular Volume 97.7 fL (80-97); Mean Platelet Volume 8.4 fL (7.5-11.2); Nucleated Red Blood Cells % 0.2 %/100WBC (0.0-0.8); Platelet Count 41 10^3/uL (150-450); RBC Morphology Normal (Normal); Red Blood Count 2.69 10^6/uL (4.06-5.63); Red Cell Distribution Width 13.5 % (12-17); White Blood Count 3.5 10^3/uL (3.6-10.2)
[2023-10-13] MEDS ORDERED: Immune Glob 10%-20GM GAMMAGLIQ 20 GM, Immune Glob 10%-5 GM GAMMAGLIQ 5 GM in Premix IV ... IV ONE (09:00)
[2023-10-13] MEDS: Vancomycin 750 MG in NS 0.9% 250 ML IVPB SCH ×2 (11:17→21:29)
[2023-10-13] MEDS: Lactated Ringers 1000 ml BAG 1,000 ML IV SCH (14:22)
[2023-10-13] MEDS: Remdesivir 100 mg Vial 100 MG in NS 0.9% 250 ml 230 ML IV SCH (21:29)
[2023-10-14] MEDS: ZOSYN 3.375 GM Q8H per EXTENDED INFUSION IV SCH ×3 (04:03→18:13)
[2023-10-14 05:57] LABS: INR 1.1 (0.83-1.13)
[2023-10-14 06:01] LABS: Albumin 3.1 g/dL (3.2-5.2); Albumin/Globulin Ratio 1.6 (1-3); Creatinine, Serum 1.44 mg/dL (0.67-1.17); Total Bilirubin 0.5 mg/dL (0.2-1.0); Total Protein 5.1 g/dL (6.4-8.9); eGFR CKD-EPI 55.3 (>60)
[2023-10-14 08:45] LABS: Hematocrit 26.2 % (38-53); Hemoglobin 9.2 g/dL (13.2-16.3); Mean Corpuscular Hemoglobin 34.2 pg (27-33); Mean Corpuscular Hgb Conc 35.1 g/dL (31-36); Mean Corpuscular Volume 97.5 fL (80-97); Mean Platelet Volume 9.3 fL (7.5-11.2); Platelet Count 60 10^3/uL (150-450); Red Blood Count 2.69 10^6/uL (4.06-5.63); Red Cell Distribution Width 13.2 % (12-17); White Blood Count 5.3 10^3/uL (3.6-10.2)
[2023-10-14 09:34] LABS: ABS Eosinophils 0.1 10^3/uL (0.0-0.5); ABS Lymphocytes 0.2 10^3/uL (1.0-4.8); ABS Monocytes 0.4 10^3/uL (0.0-1.1); ABS Neutrophils 4.7 10^3/uL (1.5-7.6); Eosinophil % 1.4 %; Lymphocyte % 4.1 %; Nucleated Red Blood Cells % 0.1 %/100WBC (0.0-0.8)
[2023-10-14 09:35] LABS: Acanthocytes 1+; Dohle Bodies Present; Toxic Granulation 2+
[2023-10-14 09:38] LABS: RBC Morphology Normal (Normal)
[2023-10-14] MEDS ORDERED: Vancomycin 750 MG in NS 0.9% 250 ML IVPB SCH (10:30)
[2023-10-14] MEDS: Vancomycin 750 MG in NS 0.9% 250 ML IVPB SCH ×2 (11:24→23:45)
[2023-10-14] MEDS ORDERED: Vancomycin per Pharmacy 1 EA NOTE FOLLOW UP SCH (17:00)
[2023-10-14] MEDS: Sulfamethox/Trimethoprim DS TAB 800/160 mg PO SCH (17:09)
[2023-10-14] MEDS: Remdesivir 100 mg Vial 100 MG in NS 0.9% 250 ml 230 ML IV SCH (22:17)
[2023-10-15] MEDS: ZOSYN 3.375 GM Q8H per EXTENDED INFUSION IV SCH ×3 (03:22→20:17)
[2023-10-15 05:18] LABS: Hematocrit 26.8 % (38-53); Hemoglobin 9.3 g/dL (13.2-16.3); Mean Corpuscular Hemoglobin 34.3 pg (27-33); Mean Corpuscular Hgb Conc 34.8 g/dL (31-36); Mean Corpuscular Volume 98.5 fL (80-97); Platelet Count 60 10^3/uL (150-450); Red Blood Count 2.72 10^6/uL (4.06-5.63); Red Cell Distribution Width 13.4 % (12-17); White Blood Count 5.3 10^3/uL (3.6-10.2)
[2023-10-15 05:32] LABS: INR 1.14 (0.83-1.13)
[2023-10-15 05:40] LABS: Albumin 3.1 g/dL (3.2-5.2); Albumin/Globulin Ratio 1.6 (1-3); Calcium 8.9 mg/dL (8.6-10.3); Creatinine, Serum 1.58 mg/dL (0.67-1.17); Globulin 1.9 g/dL (2-4); Potassium 4.3 mmol/L (3.5-5.0); Total Bilirubin 0.4 mg/dL (0.2-1.0); eGFR CKD-EPI 49.5 (>60)
[2023-10-15 05:58] LABS: ABS Eosinophils 0.1 10^3/uL (0.0-0.5); ABS Lymphocytes 0.2 10^3/uL (1.0-4.8); ABS Monocytes 0.4 10^3/uL (0.0-1.1); ABS Neutrophils 4.6 10^3/uL (1.5-7.6); Lymphocyte % 4.5 %; Nucleated Red Blood Cells % 0.1 %/100WBC (0.0-0.8); RBC Morphology Normal (Normal)
[2023-10-15] MEDS ORDERED: Immune Glob 10%-20GM GAMMAGLIQ 20 GM, Immune Glob 10%-5 GM GAMMAGLIQ 5 GM in Premix IV ... IV ONE (09:01)
[2023-10-15] MEDS: Vancomycin 750 MG in NS 0.9% 250 ML IVPB SCH ×2 (14:45→14:52)
[2023-10-16] MEDS: Vancomycin 750 MG in NS 0.9% 250 ML IVPB SCH ×2 (00:31→10:41)
[2023-10-16] MEDS: ZOSYN 3.375 GM Q8H per EXTENDED INFUSION IV SCH ×3 (03:40→20:53)
[2023-10-16] MEDS ORDERED: Vancomycin Trough Check NOTE FOLLOW UP ONE (10:00)
[2023-10-16 10:16] LABS: Hematocrit 29.4 % (38-53); Hemoglobin 10.1 g/dL (13.2-16.3); Mean Corpuscular Hemoglobin 33.9 pg (27-33); Mean Corpuscular Hgb Conc 34.3 g/dL (31-36); Mean Corpuscular Volume 98.8 fL (80-97); Mean Platelet Volume 10.2 fL (7.5-11.2); Platelet Count 78 10^3/uL (150-450); Red Blood Count 2.98 10^6/uL (4.06-5.63); Red Cell Distribution Width 13.7 % (12-17); White Blood Count 4.4 10^3/uL (3.6-10.2)
[2023-10-16 10:24] LABS: Creatinine, Serum 1.64 mg/dL (0.67-1.17); eGFR CKD-EPI 47.3 (>60)
[2023-10-16 10:36] LABS: Vancomycin Trough 19.2 mcg/mL
[2023-10-16 10:38] LABS: Calcium 9.4 mg/dL (8.6-10.3); Creatinine, Serum 1.64 mg/dL (0.67-1.17); Magnesium 2.2 mg/dL (1.9-2.7); Potassium 3.9 mmol/L (3.5-5.0); eGFR CKD-EPI 47.3 (>60)
[2023-10-16 10:45] LABS: ABS Eosinophils 0.1 10^3/uL (0.0-0.5); ABS Lymphocytes 0.3 10^3/uL (1.0-4.8); ABS Monocytes 0.5 10^3/uL (0.0-1.1); ABS Neutrophils 3.5 10^3/uL (1.5-7.6); Lymphocyte % 6.9 %; Nucleated Red Blood Cells % 0.1 %/100WBC (0.0-0.8); RBC Morphology Normal (Normal)
[2023-10-17] MEDS: ZOSYN 3.375 GM Q8H per EXTENDED INFUSION IV SCH ×3 (03:50→21:39)
[2023-10-17] MEDS ORDERED: Vancomycin Random Level NOTE FOLLOW UP ONE (06:00)
[2023-10-17 06:42] LABS: Hematocrit 26.7 % (38-53); Hemoglobin 9.3 g/dL (13.2-16.3); Mean Corpuscular Hgb Conc 34.8 g/dL (31-36); Mean Corpuscular Volume 97.9 fL (80-97); Platelet Count 67 10^3/uL (150-450); Red Blood Count 2.73 10^6/uL (4.06-5.63); Red Cell Distribution Width 13.5 % (12-17); White Blood Count 4.2 10^3/uL (3.6-10.2)
[2023-10-17 07:03] LABS: Vancomycin Random 16.9 mcg/mL
[2023-10-17 07:12] LABS: ABS Eosinophils 0.2 10^3/uL (0.0-0.5); ABS Lymphocytes 0.5 10^3/uL (1.0-4.8); ABS Monocytes 0.7 10^3/uL (0.0-1.1); ABS Neutrophils 2.8 10^3/uL (1.5-7.6); Eosinophil % 4.3 %; Lymphocyte % 11.4 %; Nucleated Red Blood Cells % 0.1 %/100WBC (0.0-0.8)
[2023-10-17 07:29] LABS: RBC Morphology Normal (Normal)
[2023-10-17 09:07] LABS: Creatinine, Serum 1.62 mg/dL (0.67-1.17); Magnesium 2.1 mg/dL (1.9-2.7); Potassium 4.1 mmol/L (3.5-5.0)
[2023-10-17] MEDS: Sulfamethox/Trimethoprim DS TAB 800/160 mg PO SCH (16:54)
[2023-10-18] MEDS: ZOSYN 3.375 GM Q8H per EXTENDED INFUSION IV SCH (03:30)
[2023-10-18 06:07] LABS: Calcium 9.2 mg/dL (8.6-10.3); Creatinine, Serum 1.6 mg/dL (0.67-1.17); Magnesium 2.2 mg/dL (1.9-2.7); Potassium 4.2 mmol/L (3.5-5.0); eGFR CKD-EPI 48.7 (>60)
[2023-10-18 06:43] VITALS: BP 92/48
[2023-10-18 07:40] LABS: Hematocrit 27.5 % (38-53); Hemoglobin 9.4 g/dL (13.2-16.3); Mean Corpuscular Hemoglobin 33.9 pg (27-33); Mean Corpuscular Volume 99.7 fL (80-97); Platelet Count 70 10^3/uL (150-450); Red Blood Count 2.76 10^6/uL (4.06-5.63); Red Cell Distribution Width 13.6 % (12-17); White Blood Count 5.6 10^3/uL (3.6-10.2)
[2023-10-18 09:32] LABS: ABS Eosinophils 0.2 10^3/uL (0.0-0.5); ABS Lymphocytes 0.5 10^3/uL (1.0-4.8); ABS Neutrophils 3.9 10^3/uL (1.5-7.6); ABS Nucleated RBC 0.01 10^3/ul; Eosinophil % 3.1 %; Lymphocyte % 9.2 %; Nucleated Red Blood Cells % 0.1 %/100WBC (0.0-0.8); RBC Morphology Normal (Normal)
== END 2023-10-18 13:21 | disposition home or self-care (01) | DRG 871 ==
LOC: CHOA 10:47 → MEDTELE 12:07 → SUATTDRO 12:07 → MEDTELE 10-18 07:44
PROVIDERS: ADMIT Internal Medicine Hematology & Oncology; ATTEND Internal Medicine

== ENCOUNTER 2023-11-13 11:12 | Observation (INO) ==
[2023-11-13] MEDS ORDERED: NS 0.9% 1000 ml BAG 1,000 ML IV ONE (11:44)
[2023-11-13 12:19] LABS: ABS Eosinophils 0.1 10^3/uL (0.0-0.5); ABS Lymphocytes 0.3 10^3/uL (1.0-4.8); ABS Monocytes 0.4 10^3/uL (0.0-1.1); ABS Neutrophils 6.2 10^3/uL (1.5-7.6); Eosinophil % 1.2 %; Hematocrit 29.5 % (38-53); Hemoglobin 10.4 g/dL (13.2-16.3); Lymphocyte % 4.7 %; Mean Corpuscular Hemoglobin 36.2 pg (27-33); Mean Corpuscular Hgb Conc 35.3 g/dL (31-36); Mean Corpuscular Volume 102.5 fL (80-97); Mean Platelet Volume 7.8 fL (7.5-11.2); Platelet Count 103 10^3/uL (150-450); Red Blood Count 2.87 10^6/uL (4.06-5.63); Red Cell Distribution Width 18.4 % (12-17); White Blood Count 7.1 10^3/uL (3.6-10.2)
[2023-11-13 12:39] LABS: ALT 6 U/L (7-52); AST 8 U/L (13-39); Albumin 3.7 g/dL (3.2-5.2); Albumin/Globulin Ratio 2.1 (1-3); Alkaline Phosphatase 59 U/L (35-149); Anion Gap 6 mmol/L (2-16); Blood Urea Nitrogen 29 mg/dL (6-24); CO2 Carbon Dioxide 21 mmol/L (22-32); Chloride 107 mmol/L (101-111); Globulin 1.8 g/dL (2-4); Glucose 120 mg/dL (70-100); Sodium 134 mmol/L (135-145); Total Bilirubin 0.6 mg/dL (0.2-1.0); Total Protein 5.5 g/dL (6.4-8.9); eGFR CKD-EPI 52.6 (>60)
[2023-11-13 12:44] LABS: High Sens Troponin Baseline 3 pg/mL (<20)
[2023-11-13] MEDS ORDERED: Dexamethasone IV 4 MG/ML VIAL 1 ml VIAL IV SLOW PU ONE (12:52)
[2023-11-13 13:37] LABS: Urine Appearance Clear; Urine Bilirubin Negative (Negative); Urine Blood Negative (Negative); Urine Color Yellow; Urine Glucose Negative (Negative); Urine Ketones Negative (Negative); Urine Nitrite Negative (Negative); Urine Protein Negative (Negative); Urine Specific Gravity 1.017 (1.002-1.030); Urine Urobilinogen Negative (Negative)
[2023-11-13 13:45] LABS: Alcohol, S < 13 mg/dL (<13)
[2023-11-13 14:01] LABS: TSH Ultra Thyroid Stim Horm 3.82 mcIU/mL (0.34-5.60)
[2023-11-13] MEDS ORDERED: Iodixanol (CONTRAST) 320 MG/ML 100 ML SDV IV ONE (14:16)
[2023-11-13] MEDS: Dexamethasone IV 4 MG/ML VIAL 1 ml VIAL IV SLOW PU SCH (22:19)
[2023-11-13] MEDS: Lactated Ringers 1000 ml BAG 1,000 ML IV SCH (23:18)
[2023-11-14] MEDS ORDERED: Ondansetron 4 mg VIAL 2 MG/ML 2 ml VIAL IV PRN (00:09)
[2023-11-14] MEDS: Lactated Ringers 1000 ml BAG 1,000 ML IV SCH (01:24)
[2023-11-14] MEDS: Dexamethasone IV 4 MG/ML VIAL 1 ml VIAL IV SLOW PU SCH ×3 (04:08→15:57)
[2023-11-14 05:09] LABS: Creatinine, Serum 1.38 mg/dL (0.67-1.17); eGFR CKD-EPI 58.2 (>60)
[2023-11-14 05:25] LABS: ABS Lymphocytes 0.2 10^3/uL (1.0-4.8); ABS Monocytes 0.2 10^3/uL (0.0-1.1); ABS Neutrophils 5.5 10^3/uL (1.5-7.6); Hematocrit 27.3 % (38-53); Hemoglobin 9.7 g/dL (13.2-16.3); Lymphocyte % 4.1 %; Mean Corpuscular Hemoglobin 36.1 pg (27-33); Mean Corpuscular Hgb Conc 35.5 g/dL (31-36); Mean Corpuscular Volume 101.7 fL (80-97); Mean Platelet Volume 7.8 fL (7.5-11.2); Platelet Count 87 10^3/uL (150-450); Red Blood Count 2.69 10^6/uL (4.06-5.63); Red Cell Distribution Width 18.1 % (12-17); White Blood Count 5.9 10^3/uL (3.6-10.2)
[2023-11-14] MEDS ORDERED: Sulfamethox/Trimethoprim DS TAB 800/160 mg PO SCH (09:00)
[2023-11-14] MEDS ORDERED: Gadoteridol (CONTRAST) 279.3 MG/ML 10 ML IV ONE (17:33)
[2023-11-14] MEDS ORDERED: Heparin 5000 UNITS/ML 1 mL VIAL SUBCUT SCH (18:00)
[2023-11-14 18:02] VITALS: BP 97/55
== END 2023-11-14 18:50 | disposition short-term general hospital (02) ==
LOC: EDHOLD 11:12 → ED 11:12 → MED 23:18
PROVIDERS: ADMIT Internal Medicine; ATTEND Internal Medicine

== ENCOUNTER 2024-05-06 17:15 | Inpatient (IN) ==
[2024-05-06] MEDS: Lactated Ringers SEPSIS* BAG 2,190 ML IV ONE (17:55)
[2024-05-06] MEDS: Cefepime 2 GM in Dextrose 2 GM/50 ML BAG IV ONE (18:24)
[2024-05-06 18:46] LABS: Activated Partial Thrombo Time 27.6 seconds (26.0-38.0); INR 1.24 (0.83-1.13)
[2024-05-06 19:01] LABS: ALT 9 U/L (7-52); AST 7 U/L (13-39); Albumin 4.2 g/dL (3.2-5.2); Albumin/Globulin Ratio 2.3 (1-3); Alkaline Phosphatase 56 U/L (35-149); Anion Gap 11 mmol/L (2-16); Blood Urea Nitrogen 36 mg/dL (6-24); C Reactive Protein 183.27 mg/L (<8.01); CO2 Carbon Dioxide 18 mmol/L (22-32); Calcium 9.6 mg/dL (8.6-10.3); Chloride 106 mmol/L (101-111); Creatinine, Serum 1.72 mg/dL (0.67-1.17); Globulin 1.8 g/dL (2-4); Glucose 147 mg/dL (70-100); Potassium 3.8 mmol/L (3.5-5.0); Sodium 135 mmol/L (135-145); Total Bilirubin 0.8 mg/dL (0.2-1.0); eGFR CKD-EPI 44.4 (>60)
[2024-05-06 19:22] LABS: Hematocrit 28.3 % (38-53); Hemoglobin 10.2 g/dL (13.2-16.3); Mean Corpuscular Hemoglobin 34.6 pg (27-33); Mean Corpuscular Volume 96.1 fL (80-97); Mean Platelet Volume 7.5 fL (7.5-11.2); Platelet Count 31 10^3/uL (150-450); Red Blood Count 2.95 10^6/uL (4.06-5.63); Red Cell Distribution Width 12.7 % (12-17); White Blood Count 0.1 10^3/uL (3.6-10.2)
[2024-05-06 19:24] LABS: ABS Nucleated RBC 0.01 10^3/ul; Eosinophil % 10.5 %; Lymphocyte % 59.3 %; Nucleated Red Blood Cells % 13.7 %/100WBC (0.0-0.8)
[2024-05-06 19:28] LABS: Urine Appearance Clear; Urine Bilirubin Negative (Negative); Urine Blood Trace (Negative); Urine Color Yellow; Urine Glucose 2+ (>=150 mg/dL) (Negative); Urine Ketones Negative (Negative); Urine Nitrite Negative (Negative); Urine Protein 2+ (>=100 mg/dL) (Negative); Urine Specific Gravity 1.022 (1.002-1.030); Urine Urobilinogen Negative (Negative)
[2024-05-06 19:29] LABS: Urine Bacteria Absent /HPF (Absent); Urine Red Blood Cell Trace(0-2/hpf) /HPF (0-Trace); Urine White Blood Cell Trace(0-5/hpf) /HPF (0-Trace)
[2024-05-06] MEDS: Lactated Ringers 1000 ml BAG 1,000 ML IV SCH (23:24)
[2024-05-07 00:56] LABS: % Iron Saturation 8 % (15-55); .Transferrin 176 mg/dL (203-362); Iron < 20 ug/dL (50-212); Total Iron Binding Capacity 246 mcg/dL (250-450); Unsaturated Iron Binding 226 ug/dL
[2024-05-07 01:16] LABS: Ferritin 586.1 ng/mL (24-336)
[2024-05-07] MEDS: Morphine 2 MG/ML SYRINGE IV PRN (02:40)
[2024-05-07] MEDS: Lactated Ringers 1000 ml BAG 1,000 ML IV SCH (06:04)
[2024-05-07] MEDS: Cefepime 2 GM in Dextrose 2 GM/50 ML BAG IV SCH (06:04)
[2024-05-07 06:53] LABS: Albumin 3.1 g/dL (3.2-5.2); Albumin/Globulin Ratio 2.2 (1-3); Calcium 8.7 mg/dL (8.6-10.3); Creatinine, Serum 1.52 mg/dL (0.67-1.17); Globulin 1.4 g/dL (2-4); Magnesium 1.8 mg/dL (1.9-2.7); Potassium 3.6 mmol/L (3.5-5.0); Total Bilirubin 0.5 mg/dL (0.2-1.0); Total Protein 4.5 g/dL (6.4-8.9); eGFR CKD-EPI 51.5 (>60)
[2024-05-07 07:57] LABS: ABS Eosinophils 0.1 10^3/uL (0.0-0.5); ABS Lymphocytes 0.1 10^3/uL (1.0-4.8); ABS Nucleated RBC 0.01 10^3/ul; Anisocytosis 1+; Eosinophil % 44.4 %; Hematocrit 21.8 % (38-53); Hemoglobin 7.7 g/dL (13.2-16.3); Lymphocyte % 38.1 %; Mean Corpuscular Hgb Conc 35.4 g/dL (31-36); Mean Platelet Volume 7.4 fL (7.5-11.2); Nucleated Red Blood Cells % 3.1 %/100WBC (0.0-0.8); Platelet Count 19 10^3/uL (150-450); Red Blood Count 2.27 10^6/uL (4.06-5.63); Red Cell Distribution Width 12.6 % (12-17); White Blood Count 0.2 10^3/uL (3.6-10.2)
[2024-05-07] MEDS: Magnesium Sulfate 2 gm BAG 2 GM/50 ML BAG IVPB ONE (10:19)
[2024-05-07 22:29] LABS: Hematocrit 21.9 % (38-53); Hemoglobin 7.8 g/dL (13.2-16.3); Mean Corpuscular Hemoglobin 34.2 pg (27-33); Mean Corpuscular Hgb Conc 35.7 g/dL (31-36); Mean Corpuscular Volume 95.8 fL (80-97); Mean Platelet Volume 8.3 fL (7.5-11.2); Platelet Count 20 10^3/uL (150-450); Red Blood Count 2.29 10^6/uL (4.06-5.63); Red Cell Distribution Width 12.6 % (12-17); White Blood Count 0.2 10^3/uL (3.6-10.2)
[2024-05-08 07:29] LABS: Hematocrit 21.5 % (38-53); Hemoglobin 7.8 g/dL (13.2-16.3); Mean Corpuscular Hemoglobin 34.5 pg (27-33); Mean Corpuscular Hgb Conc 36.3 g/dL (31-36); Mean Corpuscular Volume 95.1 fL (80-97); Platelet Count 21 10^3/uL (150-450); Red Blood Count 2.26 10^6/uL (4.06-5.63); Red Cell Distribution Width 12.7 % (12-17); White Blood Count 0.2 10^3/uL (3.6-10.2)
[2024-05-08 07:35] LABS: ABS Eosinophils 0.1 10^3/uL (0.0-0.5); ABS Lymphocytes 0.1 10^3/uL (1.0-4.8); Eosinophil % 54.6 %; Lymphocyte % 21.7 %; Nucleated Red Blood Cells % 0.7 %/100WBC (0.0-0.8)
[2024-05-08 07:41] LABS: Calcium 8.8 mg/dL (8.6-10.3); Creatinine, Serum 1.55 mg/dL (0.67-1.17); Magnesium 2.1 mg/dL (1.9-2.7); Potassium 3.7 mmol/L (3.5-5.0); eGFR CKD-EPI 50.3 (>60)
[2024-05-08] MEDS: Lidocaine 2% JELLY 6 ML Topical TOPICAL PRN (14:28)
[2024-05-08 17:43] LABS: Immunoglobulin G 325 mg/dL (767 - 1590); Immunoglobulin M <5 mg/dL (37 - 286)
[2024-05-09 07:07] LABS: Hematocrit 22.3 % (38-53); Hemoglobin 7.7 g/dL (13.2-16.3); Mean Corpuscular Hemoglobin 33.2 pg (27-33); Mean Corpuscular Hgb Conc 34.5 g/dL (31-36); Mean Corpuscular Volume 96.1 fL (80-97); Mean Platelet Volume 8.7 fL (7.5-11.2); Platelet Count 19 10^3/uL (150-450); Red Blood Count 2.32 10^6/uL (4.06-5.63); Red Cell Distribution Width 12.6 % (12-17); White Blood Count 0.2 10^3/uL (3.6-10.2)
[2024-05-09 07:09] LABS: Calcium 8.7 mg/dL (8.6-10.3); Creatinine, Serum 1.37 mg/dL (0.67-1.17); Potassium 3.8 mmol/L (3.5-5.0); eGFR CKD-EPI 58.3 (>60)
[2024-05-09] MEDS: Docusate LIQ 100 MG/10 ML UDC PO PRN (09:50)
[2024-05-09] MEDS ORDERED: Immune Globulin IV Order (CPOE ENTRY PROTOCOL) IV SCH (11:00)
[2024-05-09] MEDS: methylPREDNISolone SOD SUCC 125 mg 2 ML VIAL IV ONE (11:51)
[2024-05-09] MEDS: Immune Glob 10%-20GM GAMMAGLIQ 40 GM in Premix IV 0 ML IV ONE (12:45)
[2024-05-09] MEDS: Senna TAB 8.6 mg TAB PO PRN (21:23)
[2024-05-09 22:04] LABS: Anaplasma phagocytophilum Negative (Negative); B. miyamotoi PCR, B Negative (Negative); Babesia divergens/MO-1 Negative (Negative); Babesia ducani Negative (Negative); Ehrlichia chaffeensis Negative (Negative); Ehrlichia ewingii/canis Negative (Negative); Ehrlichia muris eauclairensis Negative (Negative)
[2024-05-10 07:17] LABS: Hematocrit 24.2 % (38-53); Hemoglobin 8.6 g/dL (13.2-16.3); Mean Corpuscular Hemoglobin 34.3 pg (27-33); Mean Corpuscular Hgb Conc 35.7 g/dL (31-36); Mean Corpuscular Volume 96.2 fL (80-97); Mean Platelet Volume 9.8 fL (7.5-11.2); Platelet Count 25 10^3/uL (150-450); Red Blood Count 2.51 10^6/uL (4.06-5.63); White Blood Count 0.4 10^3/uL (3.6-10.2)
[2024-05-10 07:28] LABS: C Reactive Protein 151.06 mg/L (<8.01); Calcium 8.9 mg/dL (8.6-10.3); Creatinine, Serum 1.39 mg/dL (0.67-1.17); Potassium 3.7 mmol/L (3.5-5.0); eGFR CKD-EPI 57.3 (>60)
[2024-05-10 08:17] LABS: ABS Lymphocytes 0.1 10^3/uL (1.0-4.8); ABS Monocytes 0.3 10^3/uL (0.0-1.1); ABS Nucleated RBC 0.01 10^3/ul; Eosinophil % 0.2 %; Lymphocyte % 19.3 %; Nucleated Red Blood Cells % 1.9 %/100WBC (0.0-0.8)
[2024-05-10] MEDS: Polyethylene Glycol 3350 17 GM PACKET PO PRN (12:34)
[2024-05-10] MEDS: Meropenem 1 GM PREMIX(*) 1 GM/50 ML BAG IV SCH (12:43)
[2024-05-10] MEDS: Meropenem 2 GM in NS 0.9% 100 ml BAG 100 ML IVPB SCH (13:40)
[2024-05-10] MEDS: Lactulose 30 ml UDC PO PRN (18:29)
[2024-05-11] MEDS: Lactated Ringers 1000 ml BAG 1,000 ML IV SCH ×2 (05:29→15:37)
[2024-05-11 06:27] LABS: Hematocrit 23.8 % (38-53); Hemoglobin 8.1 g/dL (13.2-16.3); Mean Corpuscular Hemoglobin 32.4 pg (27-33); Mean Corpuscular Hgb Conc 33.9 g/dL (31-36); Mean Corpuscular Volume 95.3 fL (80-97); Mean Platelet Volume 8.8 fL (7.5-11.2); Platelet Count 27 10^3/uL (150-450); Red Cell Distribution Width 13.3 % (12-17)
[2024-05-11 06:40] LABS: C Reactive Protein 81.25 mg/L (<8.01); Calcium 8.9 mg/dL (8.6-10.3); Creatinine, Serum 1.55 mg/dL (0.67-1.17); Potassium 3.6 mmol/L (3.5-5.0); eGFR CKD-EPI 50.3 (>60)
[2024-05-11 08:49] LABS: ABS Lymphocytes 0.2 10^3/uL (1.0-4.8); ABS Monocytes 0.5 10^3/uL (0.0-1.1); ABS Neutrophils 0.3 10^3/uL (1.5-7.6); Eosinophil % 3.3 %; Lymphocyte % 20.4 %; Nucleated Red Blood Cells % 0.4 %/100WBC (0.0-0.8); RBC Morphology Normal (Normal)
[2024-05-11] MEDS ORDERED: Naloxone 0.4 mg VIAL 0.4 mg/ml 1 ml VIAL IV PRN (11:09)
[2024-05-11] MEDS ORDERED: Ondansetron 4 mg VIAL 2 MG/ML 2 ml VIAL IV PRN (11:09)
[2024-05-11] MEDS ORDERED: fentaNYL 100 mcg/2 ml 50 MCG/ML VIAL IV PRN (11:09)
[2024-05-11] MEDS ORDERED: Bupivacaine 0.5% SDV PF 30ML VIAL ONE (11:38)
[2024-05-11] MEDS ORDERED: Lidocaine 1% w EPI 1:100,000 MDV 20 ML VIAL ONE (11:38)
[2024-05-11] MEDS ORDERED: Ondansetron 4 mg VIAL 2 MG/ML 2 ml VIAL ONE (11:43)
[2024-05-11] MEDS ORDERED: Lidocaine 2% PF 5 ML VIAL ONE (11:43)
[2024-05-11] MEDS ORDERED: Midazolam 5 mg/5 ml VIAL 1 mg/ml 5 ml VIAL (5 mg) ONE (11:43)
[2024-05-11] MEDS ORDERED: fentaNYL 100 mcg/2 ml 50 MCG/ML VIAL ONE (11:43)
[2024-05-11] MEDS ORDERED: NS 0.45% 1000 ml BAG 1,000 ML IV SCH (12:00)
[2024-05-11] MEDS: Acetaminophen IV 1 GM/100ML 1,000 MG/100 ML BAG IV ONE (14:53)
[2024-05-11] MEDS: Buffered Lidocaine 1% SYRIN 1 ml INTRADERM ONE (14:54)
[2024-05-11] MEDS: Meropenem 2 GM in NS 0.9% 100 ml BAG 100 ML IVPB SCH (23:47)
[2024-05-12 06:14] LABS: Creatinine, Serum 1.33 mg/dL (0.67-1.17); Potassium 3.9 mmol/L (3.5-5.0); eGFR CKD-EPI 60.4 (>60)
[2024-05-12 07:50] LABS: Hematocrit 23.1 % (38-53); Hemoglobin 8.3 g/dL (13.2-16.3); Mean Corpuscular Hgb Conc 35.8 g/dL (31-36); Mean Corpuscular Volume 94.9 fL (80-97); Mean Platelet Volume 9.8 fL (7.5-11.2); Platelet Count 26 10^3/uL (150-450); Red Blood Count 2.43 10^6/uL (4.06-5.63); White Blood Count 3.1 10^3/uL (3.6-10.2)
[2024-05-12 09:35] LABS: ABS Eosinophils 0.1 10^3/uL (0.0-0.5); ABS Lymphocytes 0.3 10^3/uL (1.0-4.8); ABS Monocytes 0.8 10^3/uL (0.0-1.1); ABS Neutrophils 1.8 10^3/uL (1.5-7.6); ABS Nucleated RBC 0.02 10^3/ul; Acanthocytes 2+; Eosinophil % 3.7 %; Lymphocyte % 10.7 %; Nucleated Red Blood Cells % 0.8 %/100WBC (0.0-0.8)
[2024-05-12] MEDS ORDERED: Magnesium Hydroxide LIQ 30 ML UDC PO PRN (10:43)
[2024-05-12] MEDS: Polyethylene Glycol 3350 17 GM PACKET PO SCH (11:33)
[2024-05-12] MEDS: Magnesium Hydroxide LIQ 30 ML UDC PO SCH (20:14)
[2024-05-13] MEDS: Alteplase (CATHFLO) 2 MG VIAL IV ONE (07:45)
[2024-05-13] MEDS ORDERED: Docusate LIQ 100 MG/10 ML UDC PO SCH (09:00)
[2024-05-13] MEDS: Senna TAB 8.6 mg TAB PO SCH (09:16)
[2024-05-13 12:31] LABS: Calcium 9.5 mg/dL (8.6-10.3); Creatinine, Serum 1.44 mg/dL (0.67-1.17); eGFR CKD-EPI 54.9 (>60)
[2024-05-13 12:48] LABS: ABS Basophils 0.1 10^3/uL (0.0-0.1); ABS Eosinophils 0.1 10^3/uL (0.0-0.5); ABS Lymphocytes 0.8 10^3/uL (1.0-4.8); ABS Monocytes 1.2 10^3/uL (0.0-1.1); ABS Neutrophils 8.1 10^3/uL (1.5-7.6); Hematocrit 31.7 % (38-53); Hemoglobin 10.8 g/dL (13.2-16.3); Lymphocyte % 7.8 %; Mean Corpuscular Hemoglobin 32.7 pg (27-33); Mean Corpuscular Hgb Conc 34.2 g/dL (31-36); Mean Corpuscular Volume 95.7 fL (80-97); Mean Platelet Volume 10.4 fL (7.5-11.2); Platelet Count 51 10^3/uL (150-450); RBC Morphology Normal (Normal); Red Blood Count 3.31 10^6/uL (4.06-5.63); Red Cell Distribution Width 13.7 % (12-17); White Blood Count 10.2 10^3/uL (3.6-10.2)
[2024-05-14 10:28] LABS: Hematocrit 30.3 % (38-53); Hemoglobin 10.1 g/dL (13.2-16.3); Mean Corpuscular Hemoglobin 32.5 pg (27-33); Mean Corpuscular Hgb Conc 33.4 g/dL (31-36); Mean Corpuscular Volume 97.2 fL (80-97); Mean Platelet Volume 9.9 fL (7.5-11.2); Platelet Count 54 10^3/uL (150-450); Red Blood Count 3.11 10^6/uL (4.06-5.63); White Blood Count 13.8 10^3/uL (3.6-10.2)
[2024-05-14 10:58] LABS: ABS Eosinophils 0.1 10^3/uL (0.0-0.5); ABS Lymphocytes 0.6 10^3/uL (1.0-4.8); ABS Monocytes 1.3 10^3/uL (0.0-1.1); ABS Neutrophils 11.7 10^3/uL (1.5-7.6); Lymphocyte % 4.7 %; RBC Morphology Normal (Normal)
[2024-05-14 11:10] LABS: Toxic Granulation 1+
[2024-05-14 13:36] LABS: Calcium 9.2 mg/dL (8.6-10.3); Creatinine, Serum 1.42 mg/dL (0.67-1.17); Potassium 4.2 mmol/L (3.5-5.0); eGFR CKD-EPI 55.9 (>60)
[2024-05-15] MEDS ORDERED: Meropenem 2 GM in NS 0.9% 100 ml BAG 100 ML IVPB ONE (11:00)
[2024-05-15] MEDS: Meropenem 2 GM in NS 0.9% 100 ml BAG 100 ML IVPB ONE (20:57)
[2024-05-16] MEDS: Meropenem 2 GM in NS 0.9% 100 ml BAG 100 ML IVPB SCH (09:15)
[2024-05-16 09:47] VITALS: BP 108/66
== END 2024-05-16 13:40 | disposition home health service (06) | DRG 854 ==
LOC: ED 17:15 → EDHOLD 17:15 → SUATTDRO 17:56 → OBSVTOIN 22:19 → MED 05-07 00:41
PROVIDERS: ADMIT Student in an Organized Health Care Education/Training Program; ATTEND Student in an Organized Health Care Education/Training Program

== ENCOUNTER 2024-06-07 19:37 | Inpatient (IN) ==
[2024-06-07 20:53] LABS: Hematocrit 21.4 % (38-53); Hemoglobin 7.4 g/dL (13.2-16.3); Mean Corpuscular Hemoglobin 33.6 pg (27-33); Mean Corpuscular Hgb Conc 34.6 g/dL (31-36); Mean Corpuscular Volume 96.9 fL (80-97); Platelet Count 64 10^3/uL (150-450); Red Blood Count 2.21 10^6/uL (4.06-5.63); Red Cell Distribution Width 18.6 % (12-17); White Blood Count 2.2 10^3/uL (3.6-10.2)
[2024-06-07 21:05] LABS: Activated Partial Thrombo Time 30.6 seconds (26.0-38.0); INR 1.08 (0.83-1.13)
[2024-06-07 21:18] LABS: ABS Eosinophils 0.2 10^3/uL (0.0-0.5); ABS Lymphocytes 0.1 10^3/uL (1.0-4.8); ABS Monocytes 0.2 10^3/uL (0.0-1.1); ABS Neutrophils 1.7 10^3/uL (1.5-7.6); Eosinophil % 7.3 %; Lymphocyte % 5.3 %; Nucleated Red Blood Cells % 0.1 %/100WBC (0.0-0.8); RBC Morphology Normal (Normal)
[2024-06-07 21:19] LABS: Albumin 3.3 g/dL (3.2-5.2); Albumin/Globulin Ratio 1.7 (1-3); C Reactive Protein 85.7 mg/L (<8.01); Calcium 8.7 mg/dL (8.6-10.3); Creatinine, Serum 1.67 mg/dL (0.67-1.17); Potassium 3.9 mmol/L (3.5-5.0); Total Bilirubin 0.6 mg/dL (0.2-1.0); Total Protein 5.3 g/dL (6.4-8.9)
[2024-06-07] MEDS: Lactated Ringers SEPSIS* BAG 2,190 ML IV ONE (21:55)
[2024-06-07 22:16] LABS: High Sensitivity Troponin 1 Hr 8 pg/mL (<20)
[2024-06-07 22:33] LABS: Urine Appearance Clear; Urine Bilirubin Negative (Negative); Urine Blood Trace (Negative); Urine Color Light-Yellow; Urine Glucose 1+ (>=70 mg/dL) (Negative); Urine Ketones Negative (Negative); Urine Nitrite Negative (Negative); Urine Protein 1+ (>=30 mg/dL) (Negative); Urine Specific Gravity 1.014 (1.002-1.030); Urine Urobilinogen Negative (Negative); Urine pH 6.5 (5.0-8.0)
[2024-06-07] MEDS: Cefepime 2 GM in Dextrose 2 GM/50 ML BAG IV ONE (23:08)
[2024-06-07 23:13] LABS: Urine Bacteria Absent /HPF (Absent); Urine Red Blood Cell Trace(0-2/hpf) /HPF (0-Trace); Urine White Blood Cell Absent /HPF (0-Trace)
[2024-06-08] MEDS ORDERED: Meropenem 2 GM in NS 0.9% 100 ML BAG IVPB ONE (06:00)
[2024-06-08] MEDS: Meropenem 2 GM in NS 0.9% 100 ML IVPB SCH ×2 (07:30→23:00)
[2024-06-08 08:13] LABS: Albumin/Globulin Ratio 1.7 (1-3); Calcium 8.6 mg/dL (8.6-10.3); Creatinine, Serum 1.51 mg/dL (0.67-1.17); Globulin 1.8 g/dL (2-4); Potassium 3.9 mmol/L (3.5-5.0); Total Bilirubin 0.6 mg/dL (0.2-1.0); Total Protein 4.8 g/dL (6.4-8.9); eGFR CKD-EPI 51.9 (>60)
[2024-06-08 08:23] LABS: Hematocrit 20.9 % (38-53); Hemoglobin 7.3 g/dL (13.2-16.3); Mean Corpuscular Hemoglobin 34.2 pg (27-33); Mean Corpuscular Hgb Conc 35.2 g/dL (31-36); Mean Corpuscular Volume 97.1 fL (80-97); Mean Platelet Volume 7.5 fL (7.5-11.2); Platelet Count 48 10^3/uL (150-450); Red Blood Count 2.15 10^6/uL (4.06-5.63); Red Cell Distribution Width 18.2 % (12-17); White Blood Count 1.4 10^3/uL (3.6-10.2)
[2024-06-08 09:04] LABS: ABS Eosinophils 0.1 10^3/uL (0.0-0.5); ABS Lymphocytes 0.1 10^3/uL (1.0-4.8); ABS Monocytes 0.2 10^3/uL (0.0-1.1); Anisocytosis 2+; Eosinophil % 9.7 %; Lymphocyte % 7.3 %; Nucleated Red Blood Cells % 0.1 %/100WBC (0.0-0.8); Tear Drop Cells 1+
[2024-06-08 09:55] LABS: Calcium 8.6 mg/dL (8.6-10.3); Creatinine, Serum 1.49 mg/dL (0.67-1.17); Magnesium 1.8 mg/dL (1.9-2.7); Phosphorus 1.6 mg/dL (2.5-5.0); eGFR CKD-EPI 52.7 (>60)
[2024-06-08 10:05] LABS: Hematocrit 22.6 % (38-53); Hemoglobin 7.9 g/dL (13.2-16.3); Mean Platelet Volume 7.1 fL (7.5-11.2); Platelet Count 58 10^3/uL (150-450); Red Blood Count 2.34 10^6/uL (4.06-5.63); Red Cell Distribution Width 18.6 % (12-17); White Blood Count 2.1 10^3/uL (3.6-10.2)
[2024-06-08 10:21] LABS: ABS Eosinophils 0.1 10^3/uL (0.0-0.5); ABS Lymphocytes 0.1 10^3/uL (1.0-4.8); ABS Monocytes 0.3 10^3/uL (0.0-1.1); ABS Neutrophils 1.6 10^3/uL (1.5-7.6); Anisocytosis 2+; Eosinophil % 6.4 %; Lymphocyte % 5.1 %; Nucleated Red Blood Cells % 0.1 %/100WBC (0.0-0.8)
[2024-06-08] MEDS: Magnesium Sulfate 2 gm BAG 2 GM/50 ML BAG IVPB ONE (11:51)
[2024-06-08] MEDS: Potassium Phosphate IV 15 MMOL in NS 0.9% 250 ml 250 ML IVPB ONE (12:51)
[2024-06-08] MEDS ORDERED: Vancomycin per Pharmacy 1 EA NOTE FOLLOW UP PRN (14:18)
[2024-06-08] MEDS: NS 0.9% 1000 ml BAG 1,000 ML IV SCH (15:27)
[2024-06-08] MEDS: Vancomycin 1,000 MG in NS 0.9% 250 ml 250 ML IVPB ONE (15:31)
[2024-06-09] MEDS: Vancomycin 750 MG in NS 0.9% 250 ML IVPB SCH ×2 (02:41)
[2024-06-09 10:42] LABS: Hematocrit 21.9 % (38-53); Hemoglobin 7.6 g/dL (13.2-16.3)
[2024-06-09 10:58] LABS: Albumin 3.2 g/dL (3.2-5.2); Albumin/Globulin Ratio 1.3 (1-3); Calcium 8.9 mg/dL (8.6-10.3); Creatinine, Serum 1.43 mg/dL (0.67-1.17); Globulin 2.5 g/dL (2-4); Phosphorus 1.8 mg/dL (2.5-5.0); Potassium 4.1 mmol/L (3.5-5.0); Total Bilirubin 0.5 mg/dL (0.2-1.0); Total Protein 5.7 g/dL (6.4-8.9); eGFR CKD-EPI 55.4 (>60)
[2024-06-09 12:29] LABS: ABS Eosinophils 0.1 10^3/uL (0.0-0.5); ABS Lymphocytes 0.1 10^3/uL (1.0-4.8); ABS Monocytes 0.3 10^3/uL (0.0-1.1); ABS Neutrophils 1.6 10^3/uL (1.5-7.6); Anisocytosis 2+; Eosinophil % 5.3 %; Lymphocyte % 4.2 %; Mean Corpuscular Hemoglobin 33.7 pg (27-33); Mean Corpuscular Hgb Conc 34.6 g/dL (31-36); Mean Corpuscular Volume 97.4 fL (80-97); Mean Platelet Volume 7.5 fL (7.5-11.2); Platelet Count 56 10^3/uL (150-450); Red Blood Count 2.24 10^6/uL (4.06-5.63); Red Cell Distribution Width 18.7 % (12-17); White Blood Count 2.1 10^3/uL (3.6-10.2)
[2024-06-10] MEDS: guaiFENesin 100 mg/5 ml LIQ unit dose cup PO ONE (03:24)
[2024-06-10 07:41] LABS: Calcium 8.7 mg/dL (8.6-10.3); Creatinine, Serum 1.54 mg/dL (0.67-1.17); Potassium 3.9 mmol/L (3.5-5.0); eGFR CKD-EPI 50.7 (>60)
[2024-06-10 09:56] LABS: ABS Eosinophils 0.1 10^3/uL (0.0-0.5); ABS Lymphocytes 0.1 10^3/uL (1.0-4.8); ABS Monocytes 0.3 10^3/uL (0.0-1.1); ABS Neutrophils 1.1 10^3/uL (1.5-7.6); Anisocytosis 1+; Eosinophil % 7.3 %; Hemoglobin 7.4 g/dL (13.2-16.3); Lymphocyte % 6.5 %; Mean Corpuscular Hemoglobin 33.9 pg (27-33); Mean Corpuscular Hgb Conc 35.1 g/dL (31-36); Mean Corpuscular Volume 96.6 fL (80-97); Mean Platelet Volume 8.7 fL (7.5-11.2); Platelet Count 61 10^3/uL (150-450); Red Blood Count 2.17 10^6/uL (4.06-5.63); Red Cell Distribution Width 18.9 % (12-17); White Blood Count 1.6 10^3/uL (3.6-10.2)
[2024-06-10] MEDS: Vancomycin Trough Check NOTE FOLLOW UP ONE (13:24)
[2024-06-10] MEDS: Alteplase (CATHFLO) 2 MG VIAL IV ONE (22:10)
[2024-06-10] MEDS: Saline FLUSH-CENTRAL 10 ML SYRINGE CENT\\PICC SCH (23:59)
[2024-06-11 07:27] LABS: Hematocrit 22.7 % (38-53); Mean Corpuscular Hemoglobin 34.1 pg (27-33); Mean Corpuscular Hgb Conc 35.4 g/dL (31-36); Mean Corpuscular Volume 96.5 fL (80-97); Mean Platelet Volume 8.1 fL (7.5-11.2); Platelet Count 79 10^3/uL (150-450); Red Blood Count 2.35 10^6/uL (4.06-5.63); Red Cell Distribution Width 19.1 % (12-17); White Blood Count 1.6 10^3/uL (3.6-10.2)
[2024-06-11 08:32] LABS: ABS Eosinophils 0.3 10^3/uL (0.0-0.5); ABS Lymphocytes 0.1 10^3/uL (1.0-4.8); ABS Monocytes 0.2 10^3/uL (0.0-1.1); Eosinophil % 18.1 %; Lymphocyte % 7.8 %; Nucleated Red Blood Cells % 0.1 %/100WBC (0.0-0.8)
[2024-06-11] MEDS: NS 0.9% 1000 ml BAG 1,000 ML IV SCH (18:13)
[2024-06-11] MEDS: Azithromycin 500 mg/250 ml NS 500 MG/250 ML BAG IVPB SCH (18:55)
[2024-06-12 06:52] LABS: Hemoglobin 6.6 g/dL (13.2-16.3); Mean Corpuscular Hemoglobin 33.1 pg (27-33); Mean Corpuscular Hgb Conc 34.6 g/dL (31-36); Mean Corpuscular Volume 95.6 fL (80-97); Mean Platelet Volume 7.7 fL (7.5-11.2); Platelet Count 66 10^3/uL (150-450); Red Blood Count 1.99 10^6/uL (4.06-5.63); Red Cell Distribution Width 19.2 % (12-17); White Blood Count 0.6 10^3/uL (3.6-10.2)
[2024-06-12 07:17] LABS: Calcium 8.5 mg/dL (8.6-10.3); Creatinine, Serum 1.64 mg/dL (0.67-1.17); Potassium 3.5 mmol/L (3.5-5.0)
[2024-06-12 07:48] LABS: ABS Eosinophils 0.2 10^3/uL (0.0-0.5); ABS Lymphocytes 0.1 10^3/uL (1.0-4.8); ABS Monocytes 0.1 10^3/uL (0.0-1.1); ABS Neutrophils 0.3 10^3/uL (1.5-7.6); Eosinophil % 29.6 %; Lymphocyte % 9.1 %; Nucleated Red Blood Cells % 0.1 %/100WBC (0.0-0.8)
[2024-06-12 07:50] LABS: Anisocytosis 1+
[2024-06-12] MEDS ORDERED: Polyethylene Glycol 3350 17 GM PACKET PO PRN (10:59)
[2024-06-12] MEDS ORDERED: Senna TAB 8.6 mg TAB PO PRN (10:59)
[2024-06-12] MEDS ORDERED: Vancomycin Trough Check NOTE FOLLOW UP ONE (11:30)
[2024-06-13 10:33] LABS: Body Fluid Source Cerebral Spinal
[2024-06-13 10:55] LABS: CSF Glucose 68 mg/dL (40-70)
[2024-06-13 12:52] LABS: CSF Body Fluid WBC 5 /mcL
[2024-06-13 12:53] LABS: Body Fluid Appearance Clear; Body Fluid Color Colorless; Body Fluid Mono 20 %; Body Fluid Total Cells Counted 10
[2024-06-13 14:51] LABS: Hematocrit 20.4 % (38-53); Mean Corpuscular Hemoglobin 32.3 pg (27-33); Mean Corpuscular Hgb Conc 34.5 g/dL (31-36); Mean Corpuscular Volume 93.7 fL (80-97); Mean Platelet Volume 7.7 fL (7.5-11.2); Platelet Count 83 10^3/uL (150-450); Red Blood Count 2.18 10^6/uL (4.06-5.63); Red Cell Distribution Width 18.9 % (12-17); White Blood Count 0.8 10^3/uL (3.6-10.2)
[2024-06-13 14:54] LABS: ABS Neutrophils 0.2 10^3/uL (1.5-7.6)
[2024-06-13 15:11] LABS: C Reactive Protein 162.81 mg/L (<8.01); Calcium 8.8 mg/dL (8.6-10.3); Creatinine, Serum 1.66 mg/dL (0.67-1.17); Magnesium 1.8 mg/dL (1.9-2.7); Potassium 3.7 mmol/L (3.5-5.0); eGFR CKD-EPI 46.3 (>60)
[2024-06-13 16:04] LABS: ABS Eosinophils 0.2 10^3/uL (0.0-0.5); ABS Lymphocytes 0.1 10^3/uL (1.0-4.8); ABS Monocytes 0.3 10^3/uL (0.0-1.1); Anisocytosis 1+; Eosinophil % 26.9 %; Lymphocyte % 15.2 %; Nucleated Red Blood Cells % 0.3 %/100WBC (0.0-0.8)
[2024-06-13 17:31] LABS: Immunoglobulin G 436 mg/dL (767 - 1590); Immunoglobulin M <5 mg/dL (37 - 286)
[2024-06-13 20:16] LABS: Anaplasma phagocytophilum Negative (Negative); B. miyamotoi PCR, B Negative (Negative); Babesia divergens/MO-1 Negative (Negative); Babesia ducani Negative (Negative); Ehrlichia chaffeensis Negative (Negative); Ehrlichia ewingii/canis Negative (Negative); Ehrlichia muris eauclairensis Negative (Negative)
[2024-06-14 05:58] LABS: Calcium 8.9 mg/dL (8.6-10.3); Creatinine, Serum 1.47 mg/dL (0.67-1.17); Magnesium 1.7 mg/dL (1.9-2.7); Potassium 3.7 mmol/L (3.5-5.0); eGFR CKD-EPI 53.6 (>60)
[2024-06-14 07:24] LABS: Hematocrit 22.6 % (38-53); Hemoglobin 7.8 g/dL (13.2-16.3); Mean Corpuscular Hemoglobin 31.9 pg (27-33); Mean Corpuscular Hgb Conc 34.4 g/dL (31-36); Mean Corpuscular Volume 92.5 fL (80-97); Platelet Count 90 10^3/uL (150-450); Red Blood Count 2.44 10^6/uL (4.06-5.63); Red Cell Distribution Width 18.9 % (12-17); White Blood Count 0.7 10^3/uL (3.6-10.2)
[2024-06-14 07:56] LABS: ABS Eosinophils 0.2 10^3/uL (0.0-0.5); ABS Lymphocytes 0.1 10^3/uL (1.0-4.8); ABS Monocytes 0.3 10^3/uL (0.0-1.1); ABS Neutrophils 0.2 10^3/uL (1.5-7.6); Dohle Bodies Present; Eosinophil % 21.6 %; Nucleated Red Blood Cells % 0.3 %/100WBC (0.0-0.8)
[2024-06-14] MEDS ORDERED: Immune Globulin IV Order (CPOE ENTRY PROTOCOL) IV SCH (10:00)
[2024-06-14] MEDS: Magnesium Sulfate 2 gm BAG 2 GM/50 ML BAG IVPB ONE (10:39)
[2024-06-14 12:41] LABS: Fungitell Qualitative Result Positive (Negative); Fungitell Quantitative Value 174 pg/mL (<60 pg/mL)
[2024-06-14] MEDS: Acetaminophen IV 1 GM/100ML 1,000 MG/100 ML BAG IV ONE (13:13)
[2024-06-14] MEDS: Immune Glob 10%-20GM GAMMAGLIQ 20 GM, Immune Glob 10%-5 GM GAMMAGLIQ 5 GM in Premix IV ... IV ONE (13:52)
[2024-06-14] MEDS ORDERED: methylPREDNISolone SOD SUCC 40 mg/ml 1 ml VIAL IV ONE (16:10)
[2024-06-14] MEDS: Famotidine IV 10 MG/ML 2 ml VIAL (20 mg) IV SLOW PU ONE (16:20)
[2024-06-14] MEDS: methylPREDNISolone SOD SUCC 40 mg/ml 1 ml VIAL IV ONE (16:20)
[2024-06-14] MEDS: D5W IVPB SCH ×2 (16:36→18:00)
[2024-06-14] MEDS: SULFAMETHOXAZOLE IVPB SCH ×2 (16:36→18:00)
[2024-06-14] MEDS: TRIMETH IVPB SCH ×2 (16:36→18:00)
[2024-06-14] MEDS: Enoxaparin 40 MG/0.4 ML SYR SUBCUT SCH (18:42)
[2024-06-14 20:39] LABS: Aspergillus (Galactomannan) Ag <0.500 index (<0.5)
[2024-06-15 08:12] LABS: Hematocrit 23.6 % (38-53); Hemoglobin 8.2 g/dL (13.2-16.3); Mean Corpuscular Hemoglobin 32.5 pg (27-33); Mean Corpuscular Hgb Conc 34.7 g/dL (31-36); Mean Corpuscular Volume 93.5 fL (80-97); Red Blood Count 2.52 10^6/uL (4.06-5.63); Red Cell Distribution Width 18.8 % (12-17)
[2024-06-15 08:27] LABS: Calcium 8.9 mg/dL (8.6-10.3); Creatinine, Serum 1.73 mg/dL (0.67-1.17); Magnesium 2.2 mg/dL (1.9-2.7); Potassium 3.6 mmol/L (3.5-5.0); eGFR CKD-EPI 44.1 (>60)
[2024-06-15 08:55] LABS: ABS Lymphocytes 0.2 10^3/uL (1.0-4.8); ABS Monocytes 0.7 10^3/uL (0.0-1.1); ABS Neutrophils 0.7 10^3/uL (1.5-7.6); Eosinophil % 0.2 %; Lymphocyte % 10.6 %; Mean Platelet Volume 8.1 fL (7.5-11.2); Nucleated Red Blood Cells % 0.1 %/100WBC (0.0-0.8); Platelet Count 86 10^3/uL (150-450); White Blood Count 1.6 10^3/uL (3.6-10.2)
[2024-06-15] MEDS: FILGRASTIM 300 MCG/ML SUBCUT SCH (10:51)
[2024-06-16 07:10] LABS: Calcium 8.3 mg/dL (8.6-10.3); Creatinine, Serum 1.81 mg/dL (0.67-1.17); Magnesium 2.1 mg/dL (1.9-2.7); Potassium 3.7 mmol/L (3.5-5.0); eGFR CKD-EPI 41.8 (>60)
[2024-06-16 07:25] LABS: ABS Lymphocytes 0.2 10^3/uL (1.0-4.8); ABS Monocytes 0.6 10^3/uL (0.0-1.1); ABS Neutrophils 0.8 10^3/uL (1.5-7.6); ABS Nucleated RBC 0.01 10^3/ul; Anisocytosis 2+; Eosinophil % 1.8 %; Hematocrit 20.8 % (38-53); Hemoglobin 7.3 g/dL (13.2-16.3); Lymphocyte % 11.7 %; Mean Corpuscular Hemoglobin 32.4 pg (27-33); Mean Corpuscular Hgb Conc 35.2 g/dL (31-36); Mean Corpuscular Volume 91.9 fL (80-97); Mean Platelet Volume 9.1 fL (7.5-11.2); Nucleated Red Blood Cells % 0.4 %/100WBC (0.0-0.8); Platelet Count 72 10^3/uL (150-450); Red Blood Count 2.27 10^6/uL (4.06-5.63); White Blood Count 1.7 10^3/uL (3.6-10.2)
[2024-06-16] MEDS: FILGRASTIM 300 MCG/0.5 ML SUBCUT SCH (09:26)
[2024-06-16] MEDS: Lactated Ringers 1000 ml BAG 1,000 ML IV SCH (09:28)
[2024-06-16] MEDS: TRIMETH IVPB SCH (11:11)
[2024-06-16] MEDS: SULFAMETHOXAZOLE IVPB SCH (11:11)
[2024-06-16] MEDS: D5W IVPB SCH (11:11)
[2024-06-17 05:43] LABS: Hemoglobin 7.5 g/dL (13.2-16.3); Mean Corpuscular Hemoglobin 31.6 pg (27-33); Mean Corpuscular Hgb Conc 33.9 g/dL (31-36); Mean Corpuscular Volume 93.1 fL (80-97); Mean Platelet Volume 8.2 fL (7.5-11.2); Platelet Count 69 10^3/uL (150-450); Red Blood Count 2.36 10^6/uL (4.06-5.63); Red Cell Distribution Width 19.5 % (12-17); White Blood Count 2.6 10^3/uL (3.6-10.2)
[2024-06-17 06:07] LABS: Calcium 8.6 mg/dL (8.6-10.3); Creatinine, Serum 1.77 mg/dL (0.67-1.17); Potassium 3.8 mmol/L (3.5-5.0); eGFR CKD-EPI 42.9 (>60)
[2024-06-17 06:13] LABS: ABS Eosinophils 0.1 10^3/uL (0.0-0.5); ABS Lymphocytes 0.1 10^3/uL (1.0-4.8); ABS Monocytes 0.6 10^3/uL (0.0-1.1); ABS Neutrophils 1.8 10^3/uL (1.5-7.6); Anisocytosis 1+; Dohle Bodies Present; Eosinophil % 3.8 %; Lymphocyte % 5.1 %; Nucleated Red Blood Cells % 0.1 %/100WBC (0.0-0.8); Toxic Granulation 1+
[2024-06-17 11:02] VITALS: BP 93/51
== END 2024-06-17 14:45 | disposition home or self-care (01) | DRG 602 ==
LOC: EDHOLD 19:37 → ED 19:37 → OBSVTOIN 06-08 00:45 → INTOOBSV 06-08 00:45 → SUATTDRO 06-08 00:45 → MEDTELE 06-08 16:02
PROVIDERS: ADMIT Internal Medicine; ATTEND Family Medicine